=== PATIENT | female | born 1980 | race Caucasian/White ===

== ENCOUNTER 2017-08-07 13:26 | Emergency (ER) | payer MEDICARE, OTHER ==
[~2017-08-07] VITALS: Ht 175.3 cm; Wt 81.6 kg
--- OUTSIDE RECORDS SUMMARY | 2017-08-07 13:35 | XMS REPORT ---
Demographics Address [birth year][address] [address] Preferred Language Unknown Marital Status Unknown Yazidism Affiliation Unknown Race Unknown Ethnic Group Unknown Author Author EVA Byers Organization [facility] Address [address] [place] [address] Care Team Providers Care Senior Technical Editor Name Role Phone EVA Byers Unavailable PROBLEMS Type Condition ICD9-CM Code HAX45-FS Code Onset Dates Condition Status SNOMED Code Problem Acute cystitis with hematuria N30.01 Active 32362165 Problem Injury of right hip region S79.911A Active [id number] Problem Allergic reaction, initial encounter T78.40XA Active 267091924 Problem Bronchitis J40 Active 66034096 Problem Essential hypertension I10 Active 27051139 ALLERGIES No Known Allergies SOCIAL HISTORY Never Assessed PLAN OF CARE Activity Details Follow Up prn Reason: VITAL SIGNS Height 69 in 2016-12-23 Weight 155.2 lbs 2016-12-23 Temperature 98.5 degrees Fahrenheit 2016-12-23 Heart Rate 109 bpm 2016-12-23 Respiratory Rate 16 2016-12-23 BMI 22.92 kg/m2 2016-12-23 Blood pressure systolic 150 mmHg 2016-12-23 Blood pressure diastolic 100 mmHg 2016-12-23 MEDICATIONS Medication Instructions Dosage Frequency Start Date End Date Duration Status Tessalon Perles 100 MG Orally Three times a day 1 capsule as needed 8h December, Active Azithromycin 250 MG Orally Once a day 2 tablets on the first day, then 1 tablet daily for 4 days 24h December, December, 5 day(s) Active RESULTS No Results PROCEDURES No Known procedures IMMUNIZATIONS No Known Immunizations MEDICAL (GENERAL) HISTORY Type Description Date Medical History Hypertension Surgical History rotator cuff tear repair Surgical History section Surgical History left knee replacement Hospitalization History Surgery(s)/Childbirth(s) only Hospitalization History Seizure 2016
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
--- OUTSIDE RECORDS SUMMARY | 2017-08-07 13:36 | XMS REPORT | Continuity of Care Document ---
Author Author [facility] Organization [facility] Address [facility] [address] [address] Phone Unavailable Support Name Relationship Address Phone JELENA RIZO MD Caregiver [address] [place] [phone] Unavailable FINESSE BEASLEY Next Of Kin [address] [address] Insurance Providers Payer Name Policy Number Subscriber Name Relationship Self Pay Insurance Nica Beasley 18 Self / Same As Patient Advance Directives Directive Response Recorded Date/Time Do you have an Advanced Directive? No 07/24/05 12:31pm Advance Directives No 10/30/08 3:56pm Living Will No 10/30/08 3:56pm Health Care Proxy No 02/05/15 5:54am Power of Digital Librarian for Health Care No 10/30/08 3:56pm Who is designated as your agent/rep. to act on your behalf? PT 10/15/14 11: 12am Organ, Tissue, or Eye Donor No 10/30/08 3:56pm Do you have a signed organ donor card? No 07/24/05 12:31pm Chief Complaint and Reason for Visit Chief Complaint LACERATION Reason for Visit Laceration Problems Active Problems Medical Problem Onset Date Status Ankle sprain Unknown Acute Ankle sprain Unknown Acute Knee sprain Unknown Acute Knee sprain Unknown Acute Laceration Unknown Acute Shoulder dislocation Unknown Acute Shoulder pain Unknown Acute Medications Current Home Medications Medication Dose Units Route Directions Days/Qty Instructions Start Date [No Current Meds] 05/14/09 Cephalexin Monohydrate 500 Mg 1,000 Mg Oral Twice A Day 5 Days Past Home Medications Medication Directions Ordered Status Tramadol Hcl 50 Mg Tablet, 50 Mg Oral 3-4 Times Daily As Needed 08/31/08 Discontinued Cyclobenzaprine Hcl 10 Mg Tablet, 1 Oral Three Times Daily As Needed Discontinued Tramadol Hcl 50 Mg Tablet, 50 [...] As Needed Pain for Pain 01/10/15 Discontinued Social History Social History Problem Response Recorded Date/Time Smoking Status Current every day smoker 11/24/2014 12:30pm Query Response Start Date Stop Date Smoking Status Current every day smoker Hospital Discharge Instructions No hospital discharge instructions. Plan of Care Discharge Date 02/05/15 6:10am Condition at Discharge Stable Instructions/Education Provided Laceration (ED) Prescriptions See Medication Section Additional Instructions/Education Take Tylenol and/or Ibuprofen, over the counter, as needed for pain. where your splint for comfort. Return to the ER or follow up with your primary care doctor for suture removal in 10 days. Functional Status No functional status results. Allergies, Adverse Reactions, Alerts Allergen Type Severity Reaction Status Last Updated Codeine Allergy Unknown Active 10/15/14 Propoxyphene Allergy Unknown DARVOCET Active 10/15/14 Immunizations Name Given Type Hx Diphtheria, Pertussis, Tetanus Vaccination Up To Date Historical Hx Hepatitis B Vaccination Unknown Historical Hx Influenza Vaccination No Historical Hx Pneumococcal Vaccination No Historical Hx Tetanus, Diphtheria Vaccination Yes Historical Vital Signs Acute Vital Signs Vital Response Date/Time Temperature (Fahrenheit) 98.1 degrees F (97.6 - 99.5) 01/10/2015 10:23pm Temperature Source Temporal Artery 01/10/2015 10:23pm Pulse Rate (adult) 81 bpm (60 - 90) 01/10/2015 10:50pm Respiratory Rate 18 bpm (12 - 24) 01/10/2015 10:23pm Blood Pressure 132/84 mm Hg 01/10/2015 10:50pm O2 Sat by Pulse Oximetry 97 % (90 - 100) 01/10/2015 10:23pm Oxygen Delivery Method 01/10/2015 10:23pm Pain Intensity 7 01/10/2015 10:50pm Pain Location Body Site Modifier 01/10/2015 10:50pm Pain Description 01/10/2015 10:50pm Pain Duration 31-60 Minutes 01/09/2015 12:15am Results No known relevant diagnostic tests, laboratory data and/or discharge summary. Procedures Procedure Status Date Provider(s) X-ray of right ankle, three or more views Active 11/24/14 JELENA ANDERSEN MD X-ray of left knee, four or more views Active 11/24/14 JELENA ANDERSEN MD X-ray of left shoulder, two or more views Active 01/08/15 ETHEL PEÑA D.O. Hand Rt.4 Views(3OR More) Completed 02/05/15 JELENA RIZO MD Encounters Encounter Location Arrival/Admit Date Discharge/Depart Date Attending Provider Departed Emergency Room [place] 02/05/15 5:00am 02/05/15 6:10am JELENA RIZO MD Departed Emergency Room [place] 01/10/15 10:05pm 01/10/15 10:50pm NOA MILLS MD Departed Emergency Room [place] 01/08/15 11:43pm 01/09/15 12:15am ETHEL PEÑA D.O. Departed Emergency Room [place] 11/24/14 10:42am 11/24/14 12:28pm JELENA ANDERSEN MD Recent Diagnosis
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
--- OUTSIDE RECORDS SUMMARY | 2017-08-07 13:37 | XMS REPORT ---
Author Author SAI GOLD Organization [employer] Address Unknown Phone Unavailable Care Team Providers Care Drier Helper Name Role Phone SAI GOLD CP Unavailable Allergies No Known Allergies Problems Problem Type Condition ICD-9 Code Onset Dates Condition Status Assessment Dental examination V72.2 Active Medications No Known Medications Procedures Procedure Coding System Code Date INTRAORL-PERIAPICAL 1 FILM 26889 CPT-4 D0220 Apr 03, 2015 EXTRAC ERUPTED TOOTH/EXPOSED ROOT CPT-4 D7140 Apr 03, 2015 LTD ORAL EVALUATION - PROBLEM FOCUS CPT-4 D0140 Apr 03, 2015 Results No Known Results Summary Purpose [employer] Submission
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
--- OUTSIDE RECORDS SUMMARY | 2017-08-07 13:37 | XMS REPORT | Continuity of Care Document ---
Author Author [facility] Organization [facility] Address [facility] [address] [place] [address] Phone Unavailable Support Name Relationship Address Phone MATILDA CORBETT DO Caregiver [address] [place] [address] GALE FINESSE Next Of Kin [address] [address] Insurance Providers Payer Name Policy Number Subscriber Name Relationship Self Pay Insurance Nica Beasley 18 Self / Same As Patient Advance Directives Directive Response Recorded Date/Time Do you have an Advanced Directive? No 07/24/05 12:31pm Advance Directives No 10/30/08 3:56pm Living Will No 10/30/08 3:56pm Health Care Proxy No 11/15/15 9:11am Power of Felt Puller for Health Care No 10/30/08 3:56pm Who is designated as your agent/rep. to act on your behalf? PT 10/15/14 11: 12am Organ, Tissue, or Eye Donor No 10/30/08 3:56pm Do you have a signed organ donor card? No 07/24/05 12:31pm Chief Complaint and Reason for Visit Chief Complaint SHOULDER INJURY Reason for Visit Shoulder pain [id number] Problems Active Problems Medical Problem Onset Date Status Ankle sprain Unknown Acute Ankle sprain Unknown Acute Internal derangement of left knee Unknown Acute Knee sprain Unknown Acute Knee sprain Unknown Acute Laceration Unknown Acute Shoulder dislocation Unknown Acute Shoulder pain Unknown Acute Medications Current Home Medications Medication Dose Units Route Directions Days/Qty Instructions Start Date [No Current Meds] 05/14/09 Cephalexin Monohydrate 500 Mg 1,000 Mg Oral Twice A Day 5 Days Tramadol Hcl 50 Mg 50 Mg Oral Every 4-6 Hours 15 05/29/15 Naproxen 500 Mg 500 Mg Oral Twice A Day 30 05/29/15 Meloxicam 7.5 Mg 7.5 Mg Oral Daily 20 09/23/15 Meloxicam 15 Mg 15 Mg Oral Daily as needed for Pain 14 11/15/15 Past Home Medications Medication Directions Ordered Status [...] 11/24/2014 12:30pm Tobacco Use Cigarettes 11/15/2015 9:46am Alcohol Use occasionally 11/15/2015 9:46am Drug Use none 11/15/2015 9:46am Query Response Start Date Stop Date Smoking Status Current every day smoker Hospital Discharge Instructions No hospital discharge instructions. Plan of Care Discharge Date 11/15/15 11:00am Disposition 01 HOME, HALF-WAY,ASSISTED LIVING Condition at Discharge Stable Instructions/Education Provided Shoulder Dislocation (ED) Prescriptions See Medication Section Referrals SEVERO SOTO M.D. - Functional Status Query Response Date Recorded [place] Coma Scale Total 15 November 15, 2015 9:19am Patient Behavior Appropriate November 15, 2015 9:19am Allergies, Adverse Reactions, Alerts Allergen Type Severity Reaction Status Last Updated Codeine Allergy Unknown Active 05/29/15 Propoxyphene Allergy Unknown DARVOCET Active 05/29/15 Immunizations Name Given Type Hx Diphtheria, Pertussis, Tetanus Vaccination Unknown Historical Hx Hepatitis B Vaccination Unknown Historical Hx Influenza Vaccination No Historical Hx Pneumococcal Vaccination No Historical Hx Tetanus, Diphtheria Vaccination No Historical Vital Signs Acute Vital Signs Vital Response Date/Time Temperature (Fahrenheit) 98.0 degrees F (97.6 - 99.5) 11/15/2015 9:19am Temperature Source Temporal Artery 11/15/2015 9:19am Pulse Rate (adult) 78 bpm (60 - 90) 11/15/2015 10:50am Respiratory Rate 18 bpm (12 - 24) 11/15/2015 10:50am Blood Pressure 133/76 mm Hg 11/15/2015 10:50am O2 Sat by Pulse Oximetry 98 % (90 - 100) 11/15/2015 10:50am Oxygen Delivery Method 11/15/2015 10:50am Pain Location Body Site Modifier 11/15/2015 9:30am Pain Description Throbbing 11/15/2015 9:30am Height 5 ft 6 in Weight 163 lb Body Mass Index 26.0 kg/m^2 Results No known relevant diagnostic tests, laboratory data and/or discharge summary. Procedures Procedure Status Date Provider(s) X-ray of left ankle, three or more views Active 09/23/15 EDGARDO QUEZADA DO X-ray of left knee, four or more views Active 09/23/15 EDGARDO QUEZADA DO X-ray of left shoulder, two or more views Completed 11/15/15 MATILDA CORBETT DO X-ray of left shoulder, two or more views Completed 11/15/15 MATILDA CORBETT DO Encounters Encounter Location Arrival/Admit Date Discharge/Depart Date Attending Provider Departed Emergency Room [place] 11/15/15 9:11am 11/15/15 11:00am MATILDA CORBETT DO Departed Emergency Room [place] 09/23/15 1:22pm 09/23/15 4:16pm EDGARDO QUEZADA DO Recent Diagnosis
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
--- OUTSIDE RECORDS SUMMARY | 2017-08-07 13:38 | XMS REPORT | Continuity of Care Document ---
Author Author [facility] Organization [facility] Address [facility] [address] [place] [address] Phone Unavailable Support Name Relationship Address Phone ETHEL PEÑA D.O. Caregiver [address] [place] [address] GALE FINESSE Next Of Kin [address] [place] [id number] Insurance Providers Payer Name Policy Number Subscriber Name Relationship Self Pay Insurance Nica Beasley 18 Self / Same As Patient Advance Directives Directive Response Recorded Date/Time Do you have an Advanced Directive? No 07/24/05 12:31pm Advance Directives No 11/19/16 11:21pm Living Will N N 01/07/17 11:28am Health Care Proxy No 02/16/17 9:20pm Power of Ethologist for Health Care No 11/19/16 11:21pm Organ, Tissue, or Eye Donor No 11/19/16 11:21pm Do you have a signed organ donor card? No 07/24/05 12:31pm Chief Complaint and Reason for Visit Chief Complaint LOW BACK PAIN/INJURY Reason for Visit Alcohol intoxication Coccyx pain Problems Active Problems Medical Problem Onset Date [...] Acute Laceration Unknown Acute Macrocytosis Unknown Acute Neck pain Unknown Acute Neuropathy Unknown Acute Rib fracture Unknown Acute Shoulder dislocation Unknown Acute Shoulder pain Unknown Acute Subdural hematoma Unknown Acute Urinary tract infection Unknown Acute Medications Current Home Medications Medication Dose Units Route Directions Days/Qty Instructions Start Date No Known Medications 01/07/17 Meloxicam 15 Mg 15 Mg Oral Daily 01/08/17 Chlordiazepoxide Hcl 10 Mg 10 Mg Oral Bedtime 01/17/17 Cyclobenzaprine Hcl (Flexeril*) 10 Mg 5 Mg Oral Three Times A Day 01/17/17 Baclofen 10 Mg 10 Mg Oral Three Times A Day 01/17/17 Cephalexin Monohydrate 500 Mg 500 Mg Oral Three Times A Day Past Home Medications Medication Directions Ordered Status [...] 11/19/2016 11:21pm Tobacco Use Cigarettes 11/15/2015 9:46am Sexual History Heterosexual 06/01/2016 9:23am Query Response Start Date Stop Date Smoking Status Current every day smoker Hospital Discharge Instructions No hospital discharge instructions. Plan of Care Discharge Date 02/16/17 9:17pm Condition at Discharge Stable Prescriptions See Medication Section Functional Status Query Response Date Recorded Darshana Coma Scale Total 15 February 16, 2017 9:30pm Patient Behavior Crying February 16, 2017 8:50pm Allergies, Adverse Reactions, Alerts Allergen Type Severity Reaction Status Last Updated Codeine Allergy Unknown Active 01/17/17 Propoxyphene Allergy Unknown DARVOCET Active 01/17/17 Immunizations Name Given Type Hx Diphtheria, Pertussis, Tetanus Vaccination Unknown Historical Hx Hepatitis B Vaccination Unknown Historical Hx Influenza Vaccination No Historical Hx Pneumococcal Vaccination No Historical Hx Tetanus, Diphtheria Vaccination No Historical Hx Tetanus Toxoid Vaccination No Historical Vital Signs Acute Vital Signs Vital Response Date/Time Temperature (Fahrenheit) 98.9 degrees F (97.6 - 99.5) 02/16/2017 8:50pm Temperature Source Temporal Artery 02/16/2017 8:50pm Pulse Rate (adult) 126 bpm (60 - 90) 02/16/2017 9:42pm Respiratory Rate 15 bpm (12 - 24) 02/16/2017 9:42pm Blood Pressure 135/75 mm Hg 02/16/2017 9:42pm O2 Sat by Pulse Oximetry 94 % (90 - 100) 02/16/2017 9:42pm Oxygen Delivery Method 02/16/2017 8:50pm Pain Intensity 0 02/16/2017 9:30pm Pain Location Body Site Modifier Medial 02/16/2017 9:30pm Pain Description 02/16/2017 9:30pm Pain Duration 31-60 Minutes 02/16/2017 9:30pm Height 5 ft 9 in Weight 198 lb Body Mass Index 29.0 kg/m^2 Results Laboratory Results Test Name Result [...] Sodium Level 146 mEq/L H 136-145 11/20/2016 3:11/20/2016 3:56am Potassium Level 3.6 mEq/L 3.5-5.0 11/20/2016 3:11/20/2016 3:56am Chloride Level 107 mEq/L 98-107 11/20/2016 3:11/20/2016 3:56am Carbon Dioxide Level 29.7 mEq/L 21-32 [...] RESULTS CALLED TO ANDREW GARCIA RN AT [facility] 11/20/16 0397 READ BACK PERFORMED Limit of detection: 3 mg/dL Toxic concentration is dependent upon individual usage history. Potentially lethal concentration: > mg=765 mg/dL Tricyclic Antidepressants NEGATIVE 11/19/2016 10:17pm 11/19/2016 10 :28pm Phencyclidine (PCP) Screen NEGATIVE NEGATIVE 11/19/2016 10:17pm 11/19 10:28pm Urine Barbiturates Screen NEGATIVE NEGATIVE 11/19/2016 10:17pm 2016 10:28pm Urine Marijuana (THC) Screen NEGATIVE NEGATIVE 11/19/2016 10:17pm 10:28pm Urine Opiates Screen NEGATIVE NEGATIVE 11/19/2016 [...] 11/19/2016 10:17pm 11/19/2016 10: 28pm Urine Specific [place] <=1.005 L 1.010-1.025 11/19/2016 10:17pm 2016 10:28pm Urine Occult Blood TRACE LYSED H NEGATIVE 11/19/2016 10:17pm 2016 10:28pm URINE CULTURE ORDERED PER MEDICAL STAFF-APPROVED PROTOCOL FOR LAB. Urine pH 7.0 5.0-8.0 11/19/2016 10:17pm 11/19/2016 10:28pm Urine Protein NEGATIVE mg/dL NEGATIVE 11/19/2016 10:17pm 11/19/2016 10: 28pm Urine Urobilinogen 0.2 mg/dL E.U./dL [...] 147.6 mL/min H 11/20/2016 3:19am 11/20 3:56am Pending Laboratory Results Test Name Collection Date/Time Microbiology Results Procedure Source Result Collection Date/Time Result Date/Time Urine Culture Urine,Random ESCHERICHIA COLI 11/19/2016 10:17pm 11/21/2016 7:27am Pending Microbiology Results Procedure Source Collection Date/Time Procedures Procedure Status Date Provider(s) X-ray of left knee, three views Completed 01/08/17 ISAMAR PETTY DO Computed tomography of abdomen and pelvis without contrast Completed ETHEL ALVARENGA DO Encounters Encounter Location Arrival/Admit Date Discharge/Depart Date Attending Provider Departed Emergency Room [place] 02/16/17 8:51pm 02/16/17 9:17pm ETHEL PEÑA D.O. Departed Emergency Room [place] 02/14/17 11:03pm 02/14/17 11:12pm RAQUEL ARIAS MD Departed Emergency Room [place] 02/11/17 4:15pm 02/11/17 4:35pm DIGNA GROSS MD Departed Emergency Room [place] 02/01/17 11:52am 02/01/17 2:55pm ETHEL ALVARENGA DO Departed Emergency Room [place] 01/17/17 12:18am 01/17/17 1:10am RAQUEL ARIAS MD Departed Emergency Room [place] 01/08/17 12:08pm 01/08/17 12:51pm ISAMAR PETTY DO Discharged Inpatient (obs) [place] 11/19/16 11:10pm 11/20/16 9:50am NATALIA VELAZQUEZ MD Recent Diagnosis
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
--- OUTSIDE RECORDS SUMMARY | 2017-08-07 13:40 | XMS REPORT | Continuity of Care Document ---
Author Author [facility] Organization [facility] Address [facility] [address] [place] [address] Phone Unavailable Support Name Relationship Address Phone ETHEL ALVARENGA DO Caregiver [address] [place] [address] GALE FINESSE Next Of Kin [address] [place] [address] Insurance Providers Payer Name Policy Number Subscriber Name Relationship Self Pay Insurance Nica Beasley 18 Self / Same As Patient Advance Directives Directive Response Recorded Date/Time Do you have an Advanced Directive? No 07/24/05 12:31pm Advance Directives No 11/19/16 11:21pm Living Will N N 01/07/17 11:28am Health Care Proxy No 02/01/17 11:55am Power of Director Of Conservation for Health Care No 11/19/16 11:21pm Organ, Tissue, or Eye Donor No 11/19/16 11:21pm Do you have a signed organ donor card? No 07/24/05 12:31pm Chief Complaint and Reason for Visit Chief Complaint TINGLING IN EXTREMETIES Reason for Visit Urinary tract infection Alcohol abuse Neuropathy [id number] Macrocytosis Problems Active Problems Medical Problem Onset Date [...] Use Cigarettes 11/15/2015 9:46am Alcohol Use alcoholic 02/01/2017 12:50pm Drug Use marijuana 02/01/2017 12:50pm Sexual History Heterosexual 06/01/2016 9:23am Query Response Start Date Stop Date Smoking Status Current every day smoker Hospital Discharge Instructions No hospital discharge instructions. 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) Peripheral Neuropathy (ED) Urinary Tract Infection in (ED) Prescriptions See Medication Section Functional Status Query Response Date Recorded [place] Coma Scale Total 15 February 01, 2017 11:52am Patient Behavior Anxious Cooperative Suspicious February 01, 2017 11:52am Allergies, Adverse Reactions, Alerts Allergen Type Severity [...] Vital Signs Vital Response Date/Time Temperature (Fahrenheit) 98 degrees F (97.6 - 99.5) 02/01/2017 2:55pm Temperature Source Temporal Artery 02/01/2017 2:55pm Pulse Rate (adult) 82 bpm (60 - 90) 02/01/2017 2:55pm Respiratory Rate 22 bpm (12 - 24) 02/01/2017 11:52am Blood Pressure 127/78 mm Hg 02/01/2017 2:55pm O2 Sat by Pulse Oximetry 96 % (90 - 100) 02/01/2017 2:55pm Oxygen Delivery Method 02/01/2017 2:55pm Pain Intensity 10 01/17/2017 7:30am Pain Location Body Site Modifier 01/17/2017 7:30am Pain Description 01/17/2017 7:30am Pain Duration CHRONIC 01/17/2017 7:30am Height 5 ft 9 in Weight 165 lb Body Mass Index 24.0 kg/m^2 Results Laboratory Results Test Name Result [...] Urea Nitrogen 5 mg/dL L 7-18 11/20/2016 3:11/20/2016 3:56am Creatinine 0.5 mg/dL L 0.55-1.02 11/20/2016 3:11/20/2016 3:56am Sodium Level 146 mEq/L H 136-145 [...] TO ANDREW GARCIA RN AT [facility] 11/20/16 1865 READ BACK PERFORMED Limit of detection: 3 mg/dL Toxic concentration is dependent upon individual usage history. Potentially lethal concentration: > zz=319 mg/dL Tricyclic Antidepressants NEGATIVE 11/19/2016 10:17pm 11/19/2016 [...] 11/19/2016 10:17pm 11/19/2016 10: 28pm Urine Specific [place] <=1.005 L 1.010-1.025 11/19/2016 10:17pm 2016 10:28pm [...] Discharge/Depart Date Attending Provider Departed Emergency Room [place] 02/01/17 11:52am 02/01/17 2:55pm ETHEL ALVARENGA DO Departed Emergency Room [place] 01/17/17 12:18am 01/17/17 1:10am RAQUEL ARIAS MD Departed Emergency Room [place] 01/08/17 12:08pm 01/08/17 12:51pm ISAMAR PETTY DO Discharged Inpatient (obs) [place] 11/19/16 11:10pm 11/20/16 9:50am NATALIA VELAZQUEZ MD Recent Diagnosis
--- OUTSIDE RECORDS SUMMARY | 2017-08-07 13:40 | XMS REPORT | Continuity of Care Document ---
Author Author [facility] Organization [facility] Address [facility] [address] [place] [address] Phone Unavailable Support Name Relationship Address Phone ETHEL ALVARENGA DO Caregiver [address] [place] [address] [phone] RAQUEL ARIAS MD Caregiver [address] [place] [address] Unavailable FINESSE BEASLEY Next Of Kin [address] [address] Insurance Providers Payer Name Policy Number Subscriber Name Relationship Self Pay Insurance Nica Beasley 18 Self / Same As Patient Advance Directives Directive Response Recorded Date/Time Do you have an Advanced Directive? No 07/24/05 12:31pm Advance Directives No 10/30/08 3:56pm Living Will No 10/30/08 3:56pm Health Care Proxy No 09/05/16 6:21pm Power of [employer] Truck Driver for Health Care No 10/30/08 3:56pm Organ, Tissue, or Eye Donor No 10/30/08 3:56pm Do you have a signed organ donor card? No 07/24/05 12:31pm Chief Complaint and Reason for Visit Chief Complaint MULTIPLE COMPLAINTS Reason for Visit Headache [id number] Problems Active Problems Medical Problem Onset Date [...] Use Cigarettes 11/15/2015 9:46am Alcohol Use alcoholic 09/05/2016 7:33pm Drug Use none 09/05/2016 7:33pm Sexual History Heterosexual 06/01/2016 9:23am Query Response Start Date Stop Date Smoking Status Current every day smoker Hospital Discharge Instructions No hospital discharge instructions. Plan of Care Discharge Date 09/05/16 8:34pm Condition at Discharge Against Medical Advice Prescriptions See Medication Section Functional Status Query Response Date Recorded [place] Coma Scale Total 15 September 05, 2016 6:35pm Patient Behavior Cooperative Appropriate September 05, 2016 6:35pm Allergies, Adverse Reactions, Alerts Allergen Type Severity [...] Vital Signs Vital Response Date/Time Temperature (Fahrenheit) 97.9 degrees F (97.6 - 99.5) 09/05/2016 6:35pm Temperature Source Temporal Artery 09/05/2016 6:35pm Pulse Rate (adult) 110 bpm (60 - 90) 09/05/2016 7:30pm Respiratory Rate 18 bpm (12 - 24) 09/05/2016 7:30pm Blood Pressure 138/88 mm Hg 09/05/2016 7:30pm O2 Sat by Pulse Oximetry 98 % (90 - 100) 09/05/2016 7:30pm Oxygen Delivery Method 09/05/2016 7:30pm Pain Location Body Site Modifier Lateral 08/20/2016 2:45am Pain Description Cramping 08/20/2016 2:45am Height 5 ft 9 in Weight 176 lb Body Mass Index 26.0 kg/m^2 Results [...] individual usage history. Potentially lethal concentration: > sh=613 mg/dL Urine Color YELLOW YELLOW 06/27/2016 2:50am 06/28/2016 2:54am Urine Appearance CLOUDY H CLEAR 06/27/2016 2:50am 06/28/2016 2:54am Urine Glucose (UA) NEGATIVE mg/dL NEGATIVE 06/27/2016 2:50am 2015 2:54am Urine Bilirubin NEGATIVE NEGATIVE 06/27/2016 2:50am 06/28/2016 2: 54am Urine Ketones NEGATIVE mg/dL NEGATIVE 06/27/2016 2:50am 06/28/2016 2: 54am Urine Specific [place] 1.015 1.010-1.025 06/27/2016 2:50am 2015 2:54am Urine [...] tomography of head without contrast Active 08/26/16 ISAMAR PETTY DO X-ray of chest, PA and lateral views Active 08/26/16 ISAMAR PETTY DO X-ray of right knee, three views Active 08/26/16 ISAMAR PETTY DO X-ray of chest, PA and lateral views Completed 09/05/16 ETHEL ALVARENGA DO Computed tomography of head without contrast Completed 09/05/16 RAQUEL ARIAS MD Encounters Encounter Location Arrival/Admit Date Discharge/Depart Date Attending Provider Departed Emergency Room [place] 09/05/16 6:21pm 09/05/16 8:34pm RAQUEL ARIAS MD Departed Emergency Room [place] 08/30/16 11:36pm 08/31/16 12:00am ETHEL PEÑA D.O. Departed Emergency Room [place] 08/26/16 12:57pm 08/26/16 2:50pm ISAMAR PETTY DO Departed Emergency Room [place] 08/19/16 8:44pm 08/20/16 2:55am JEANETTE ADAMS MD Departed Emergency Room [place] 08/16/16 11:11pm 08/17/16 12:43am RAQUEL ARIAS MD Departed Emergency Room [place] 07/03/16 9:10pm 07/03/16 10:15pm ETHEL PEÑA D.O. Departed Emergency Room [place] 06/27/16 8:57pm 06/28/16 11:40am KIA HOOPER M.D. Recent Diagnosis
--- OUTSIDE RECORDS SUMMARY | 2017-08-07 13:40 | XMS REPORT | Continuity of Care Document ---
Author Author [facility] Organization [facility] Address [facility] [address] [address] Phone Unavailable Support Name Relationship Address Phone RAQUEL ARIAS MD Caregiver [address] [place] [address] Unavailable FINESSE BEASLEY Next Of Kin [address] [id number] Insurance Providers Payer Name Policy Number Subscriber Name Relationship Self Pay Insurance Nica Beasley 18 Self / Same As Patient Advance Directives Directive Response Recorded Date/Time Do you have an Advanced Directive? No 07/24/05 12:31pm Advance Directives No 11/19/16 11:21pm Living Will N N 01/07/17 11:28am Health Care Proxy No 01/17/17 12:20am Power of Multisensor Intelligence Officer for Health Care No 11/19/16 11:21pm Organ, Tissue, or Eye Donor No 11/19/16 11:21pm Do you have a signed organ donor card? No 07/24/05 12:31pm Chief Complaint and Reason for Visit Chief Complaint LEG PAIN Reason for Visit [id number] Abdominal pain Problems Active Problems Medical Problem Onset [...] Tobacco Use Cigarettes 11/15/2015 9:46am Alcohol Use heavy 01/17/2017 1:11am Sexual History Heterosexual 06/01/2016 9:23am Query Response Start Date Stop Date Smoking Status Current every day smoker Hospital Discharge Instructions No hospital discharge instructions. Plan of Care Discharge Date 01/17/17 1:10am Condition at Discharge Stable Prescriptions See Medication Section Functional Status Query Response Date Recorded [place] Coma Scale Total 15 January 17, 2017 12:20am Patient Behavior Cooperative January 17, 2017 12:20am Allergies, Adverse Reactions, Alerts Allergen Type Severity [...] Vital Signs Vital Response Date/Time Temperature (Fahrenheit) 98.4 degrees F (97.6 - 99.5) 01/17/2017 12:20am Temperature Source Temporal Artery 01/17/2017 12:20am Pulse Rate (adult) 119 bpm (60 - 90) 01/17/2017 12:20am Respiratory Rate 20 bpm (12 - 24) 01/17/2017 12:20am Blood Pressure 117/91 mm Hg 01/17/2017 12:20am O2 Sat by Pulse Oximetry 97 % (90 - 100) 01/17/2017 12:20am Oxygen Delivery Method 01/17/2017 12:20am Pain Intensity 10 11/20/2016 5:51am Pain Location Body Site Modifier Right 01/17/2017 1:10am Pain Description 01/17/2017 1:10am Pain Duration SEVERAL DAYS 11/19/2016 11:21pm Height 5 ft 9 in Weight 160 [...] 3:56am Chloride Level 107 mEq/L 98-107 11/20/2016 3:19am 11/20/2016 3:56am Carbon Dioxide Level 29.7 mEq/L 21-32 11/20/2016 3:1911/20/2016 3: 56am Calcium Level 7.6 mg/dL L 8.8-10.5 11/20/2016 3:1911/20/2016 3:56am Magnesium Level 1.7 mg/dL L 1.8-2.4 11/20/2016 3:11/20/2016 3:56am Total Protein 6.6 gm/dL 6.4-8.2 11/20/2016 3:1911/20/2016 3:56am Albumin 2.8 gm/dL L 3.4-5.0 11/20/2016 3:1911/20/2016 3:56am Total Bilirubin 0.24 mg/dL 0.00-1.00 11/20/2016 3:11/20/2016 3: 56am Aspartate Amino Transf (AST/SGOT) 103 U/L H 15-37 11/20/2016 3:19 3:56am Alanine Aminotransferase (ALT/SGPT) 38 U/L 12-78 11/20/2016 3: 3:56am Total Alkaline Phosphatase 110 U/L 46-116 11/20/2016 3:11/20/2016 3:56am Ethyl Alcohol Level 415.0 mg/dL *H <3.0 11/20/2016 3:11/20/2016 3: 56am PANIC VALUE - RESULTS CALLED TO ANDREW GARCIA RN AT [facility] 11/20/16 0355 READ BACK PERFORMED Limit of detection: 3 mg/dL Toxic concentration is dependent upon individual usage history. Potentially lethal concentration: > ia=465 mg/dL Tricyclic Antidepressants NEGATIVE 11/19/2016 10:17pm 11/19/2016 10 :28pm Phencyclidine (PCP) Screen NEGATIVE NEGATIVE 11/19/2016 10:1711/19 10:28pm Urine Barbiturates Screen NEGATIVE NEGATIVE 11/19/2016 10:172016 10:28pm Urine Marijuana (THC) Screen NEGATIVE NEGATIVE 11/19/2016 10:17pm 10:28pm Urine Opiates Screen NEGATIVE NEGATIVE 11/19/2016 10:17pm 11/19/2016 10:28pm Urine Cocaine Level NEGATIVE NEGATIVE 11/19/2016 10:1711/19/2016 10:28pm Urine Amphetamines Screen NEGATIVE NEGATIVE 11/19/2016 10:172016 10:28pm Urine Methamphetamines Screen NEGATIVE NEGATIVE 11/19/2016 10:17 10:28pm Urine Benzodiazepines Screen NEGATIVE NEGATIVE 11/19/2016 10:17pm 10:28pm Urine Color YELLOW YELLOW 11/19/2016 10:17pm 11/19/2016 10:28pm Urine Appearance CLEAR CLEAR 11/19/2016 10:17pm 11/19/2016 10:28pm Urine Glucose (UA) NEGATIVE mg/dL NEGATIVE 11/19/2016 10:17pm 2016 10:28pm Urine Bilirubin NEGATIVE NEGATIVE 11/19/2016 10:11/19/2016 10: 28pm Urine Ketones NEGATIVE mg/dL NEGATIVE 11/19/2016 10:17pm 11/19/2016 10: 28pm Urine Specific [place] <=1.005 L 1.010-1.025 11/19/2016 10:172016 10:28pm Urine Occult Blood TRACE LYSED H NEGATIVE 11/19/2016 10:172016 10:28pm URINE CULTURE ORDERED PER MEDICAL STAFF-APPROVED PROTOCOL FOR LAB. Urine pH 7.0 5.0-8.0 11/19/2016 10:1711/19/2016 10:28pm Urine Protein NEGATIVE mg/dL NEGATIVE 11/19/2016 10:1711/19/2016 10: 28pm Urine Urobilinogen 0.2 mg/dL E.U./dL 0.2-1.0 11/19/2016 10:172016 10:28pm Urine Nitrate NEGATIVE NEGATIVE 11/19/2016 10:11/19/2016 10: 28pm Urine Leukocyte Esterase NEGATIVE NEGATIVE 11/19/2016 10:172016 10:28pm Urine RBC 0-1 /hpf 0 11/19/2016 [...] Discharge/Depart Date Attending Provider Departed Emergency Room [place] 01/17/17 12:18am 01/17/17 1:10am RAQUEL ARIAS MD Departed Emergency Room [place] 01/08/17 12:08pm 01/08/17 12:51pm ISAMAR PETTY DO Discharged Inpatient (obs) [place] 11/19/16 11:10pm 11/20/16 9:50am NATALIA VELAZQUEZ MD Recent Diagnosis
--- OUTSIDE RECORDS SUMMARY | 2017-08-07 13:41 | XMS REPORT | Continuity of Care Document ---
Author Author [facility] Organization [facility] Address [facility] [address] [place] [address] Phone Unavailable Support Name Relationship Address Phone RAQUEL ARIAS MD Caregiver [address] [place] [address] Unavailable FINESSE BEASLEY Next Of Kin [phone] [phone] Insurance Providers Payer Name Policy Number Subscriber Name Relationship Self Pay Insurance Nica Beasley 18 Self / Same As Patient Advance Directives Directive Response Recorded Date/Time Do you have an Advanced Directive? No 07/24/05 12:31pm Advance Directives No 11/19/16 11:21pm Living Will N N 01/07/17 11:28am Health Care Proxy No 02/14/17 11:04pm Power of Sledger for Health Care No 11/19/16 11:21pm Organ, Tissue, or Eye Donor No 11/19/16 11:21pm Do you have a signed organ donor card? No 07/24/05 12:31pm Chief Complaint and Reason for Visit Chief Complaint LOW BACK PAIN/INJURY Reason for Visit Coccyx pain Problems Active Problems Medical Problem [...] Use Cigarettes 11/15/2015 9:46am Alcohol Use heavy 02/14/2017 11:13pm Drug Use other 02/14/2017 11:13pm Sexual History Heterosexual 06/01/2016 9:23am Query Response Start Date Stop Date Smoking Status Current every day smoker Hospital Discharge Instructions No hospital discharge instructions. Plan of Care Discharge Date 02/14/17 11:12pm Condition at Discharge Stable Prescriptions See Medication Section Functional Status Query Response Date Recorded [place] Coma Scale Total 15 February 14, 2017 11:44pm Patient Behavior Restless Anxious February 14, 2017 11:02pm Allergies, Adverse Reactions, Alerts Allergen Type Severity [...] (Fahrenheit) 97.9 degrees F (97.6 - 99.5) 02/14/2017 11:02pm Temperature Source Temporal Artery 02/14/2017 11:02pm Pulse Rate (adult) 108 bpm (60 - 90) 02/14/2017 11:44pm Respiratory Rate 16 bpm (12 - 24) 02/14/2017 11:44pm Blood Pressure 118/85 mm Hg 02/14/2017 11:02pm O2 Sat by Pulse Oximetry 94 % (90 - 100) 02/14/2017 11:02pm Oxygen Delivery Method 02/14/2017 11:02pm Pain Intensity 0 02/14/2017 11:44pm Pain Location Body Site Modifier 02/14/2017 11:44pm Pain Description 02/14/2017 11:44pm Pain Duration X'S TWO DAYS 02/14/2017 11:44pm Height 5 ft 9 in Weight 160 [...] TO ANDREW GARCIA RN AT [facility] 11/20/16 2929 READ BACK PERFORMED Limit of detection: 3 mg/dL Toxic concentration is dependent upon individual usage history. Potentially lethal concentration: > ct=820 mg/dL Tricyclic Antidepressants NEGATIVE 11/19/2016 10:17pm 11/19/2016 [...] 11/19/2016 10:17pm 11/19/2016 10: 28pm Urine Specific [place] <=1.005 L 1.010-1.025 11/19/2016 10:17pm 2016 10:28pm [...] Discharge/Depart Date Attending Provider Departed Emergency Room [place] 02/14/17 11:03pm 02/14/17 11:12pm RAQUEL ARIAS MD Departed Emergency Room [place] 02/11/17 4:15pm 02/11/17 4:35pm DIGNA GROSS MD Departed Emergency Room [place] 02/01/17 11:52am 02/01/17 2:55pm ETHEL ALVARENGA DO Departed Emergency Room [place] 01/17/17 12:18am 01/17/17 1:10am RAQUEL ARIAS MD Departed Emergency Room [place] 01/08/17 12:08pm 01/08/17 12:51pm ISAMAR PETTY DO Discharged Inpatient (obs) [place] 11/19/16 11:10pm 11/20/16 9:50am NATALIA VELAZQUEZ MD Recent Diagnosis
--- OUTSIDE RECORDS SUMMARY | 2017-08-07 13:41 | XMS REPORT | Continuity of Care Document ---
Author Author [facility] Organization [facility] Address [facility] [address] [place] [address] Phone Unavailable Support Name Relationship Address Phone ETHEL PEÑA D.O. Caregiver [address] [place] [address] FINESSE BEASLEY Next Of Kin [address] [place] [address] Insurance Providers Payer Name Policy Number Subscriber Name Relationship Self Pay Insurance Nica Beasley 18 Self / Same As Patient Advance Directives Directive Response Recorded Date/Time Do you have an Advanced Directive? No 07/24/05 12:31pm Advance Directives No 10/30/08 3:56pm Living Will No 10/30/08 3:56pm Health Care Proxy No 08/30/16 11:35pm Power of Plant Culture Manager for Health Care No 10/30/08 3:56pm Organ, Tissue, or Eye Donor No 10/30/08 3:56pm Do you have a signed organ donor card? No 07/24/05 12:31pm Problems Active Problems Medical Problem Onset Date [...] discharge instructions. Plan of Care Discharge Date 08/31/16 12:00am Disposition 07 AMA, LWOT, LWBS Prescriptions See Medication Section Functional Status Query Response Date Recorded [place] Coma Scale Total 15 August 30, 2016 11:35pm Patient Behavior Restless Belligerent August 30, 2016 11:34pm Allergies, Adverse Reactions, Alerts Allergen Type Severity [...] (Fahrenheit) 98.4 degrees F (97.6 - 99.5) 08/30/2016 11:35pm Temperature Source Temporal Artery 08/30/2016 11:35pm Pulse Rate (adult) 125 bpm (60 - 90) 08/30/2016 11:35pm Respiratory Rate 24 bpm (12 - 24) 08/30/2016 11:35pm Blood Pressure 150/99 mm Hg 08/30/2016 11:35pm O2 Sat by Pulse Oximetry 99 % (90 - 100) 08/30/2016 11:35pm Oxygen Delivery Method 08/30/2016 11:35pm Pain Location Body Site Modifier Lateral 08/20/2016 [...] individual usage history. Potentially lethal concentration: > cr=401 mg/dL Urine Color YELLOW YELLOW 06/27/2016 2:50am 06/28/2016 2:54am Urine Appearance CLOUDY H CLEAR 06/27/2016 2:50am 06/28/2016 2:54am Urine Glucose (UA) NEGATIVE mg/dL NEGATIVE 06/27/2016 2:50am 2015 2:54am Urine Bilirubin NEGATIVE NEGATIVE 06/27/2016 2:50am 06/28/2016 2: 54am Urine Ketones NEGATIVE mg/dL NEGATIVE 06/27/2016 2:50am 06/28/2016 2: 54am Urine Specific [place] 1.015 1.010-1.025 06/27/2016 2:50am 2015 2:54am Urine [...] DO X-ray of right knee, two views Active 08/26/16 ISAMAR PETTY DO Encounters Encounter Location Arrival/Admit Date Discharge/Depart Date Attending Provider Registered Emergency Room [place] 08/30/16 11:36pm ETHEL PEÑA D.O. Departed Emergency Room [place] 08/26/16 12:57pm 08/26/16 2:50pm ISAMAR PETTY DO Departed Emergency Room [place] 08/19/16 8:44pm 08/20/16 2:55am JEANETTE ADAMS MD Departed Emergency Room [place] 08/16/16 11:11pm 08/17/16 12:43am RAQUEL ARIAS MD Departed Emergency Room [place] 07/03/16 9:10pm 07/03/16 10:15pm ETHEL PEÑA D.O. Departed Emergency Room [place] 06/27/16 8:57pm 06/28/16 11:40am KIA HOOPER M.D.
--- OUTSIDE RECORDS SUMMARY | 2017-08-07 13:41 | XMS REPORT | Continuity of Care Document ---
Author Author [facility] Organization [facility] Address [facility] [address] [place] [address] Phone Unavailable Support Name Relationship Address Phone ETHEL PEÑA D.O. Caregiver [address] [place] [address] FINESSE BEASLEY Next Of Kin [address] [place] [address] Insurance Providers Payer Name Policy Number Subscriber Name Relationship Self Pay Insurance Nica Beasley 18 Self / Same As Patient Advance Directives Directive Response Recorded Date/Time Do you have an Advanced Directive? No 07/24/05 12:31pm Advance Directives No 10/30/08 3:56pm Living Will No 10/30/08 3:56pm Health Care Proxy No 07/03/16 9:17pm Power of Visual Designer for Health Care No 10/30/08 3:56pm Organ, Tissue, or Eye Donor No 10/30/08 3:56pm Do you have a signed organ donor card? No 07/24/05 12:31pm Chief Complaint and Reason for Visit Chief Complaint ALCOHOL INTOXICATION Reason for Visit Alcohol intoxication Alcohol abuse Problems Active Problems Medical Problem Onset Date Status Abdominal pain Unknown Acute Alcohol abuse Unknown Acute Alcohol intoxication Unknown Acute Ankle sprain Unknown Acute Ankle sprain Unknown Acute ETOH abuse Unknown Acute Fall Unknown Acute Internal derangement of left knee [...] Mg 40 Mg Oral Daily 14 06/01/16 Past Home Medications Medication Directions Ordered Status [...] Use Cigarettes 11/15/2015 9:46am Alcohol Use alcoholic 07/03/2016 10:08pm Sexual History Heterosexual 06/01/2016 9:23am Employment Unemployeed 07/03/2016 10:08pm Query Response Start Date Stop Date Smoking Status Current every day smoker Hospital Discharge Instructions No hospital discharge instructions. Plan of Care Discharge Date 07/03/16 10:15pm Condition at Discharge Serious Instructions/Education Provided Alcohol Intoxication (ED) Prescriptions See Medication Section Functional Status Query Response Date Recorded Darshana Coma Scale Total 15 July 03, 2016 9:42pm Patient Behavior Aggressive Restless Uncooperative July 03, 2016 9:15pm Allergies, Adverse Reactions, Alerts Allergen Type Severity Reaction Status Last Updated Codeine Allergy Unknown Active 06/27/16 Propoxyphene Allergy Unknown DARVOCET Active 06/27/16 Immunizations Name Given Type Hx Diphtheria, Pertussis, Tetanus Vaccination Unknown Historical Hx Hepatitis B Vaccination Unknown Historical Hx Influenza Vaccination N DOES NOT TAKE Historical Hx Pneumococcal Vaccination No Historical Hx Tetanus, Diphtheria Vaccination No Historical Vital Signs Acute Vital Signs Vital Response Date/Time Temperature (Fahrenheit) 98.8 degrees F (97.6 - 99.5) 07/03/2016 9:15pm Temperature Source Temporal Artery 07/03/2016 9:15pm Pulse Rate (adult) 116 bpm (60 - 90) 07/03/2016 9:42pm Respiratory Rate 20 bpm (12 - 24) 07/03/2016 9:42pm Blood Pressure 134/72 mm Hg 07/03/2016 9:15pm O2 Sat by Pulse Oximetry 97 % (90 - 100) 07/03/2016 9:15pm Oxygen Delivery Method 07/03/2016 9:15pm Pain Description 06/01/2016 11:25am Height 5 ft 9 in Weight 198 [...] Hemoglobin Concent 35.1 g/dL 30.0-37.0 06/01/2016 9: [facility] 06/01/2016 9:48am Red Cell Distribution Width 13.9 % 11.5-14.5 06/01/2016 9:34a 2015 9:48am Platelet Count 214 K/uL 130-400 06/01/2016 9:34a 06/01/2016 9:48am Mean Platelet Volume 8.1 fL 7.4-10.4 06/01/2016 9:34a 06/01/2016 9: 48am Neutrophils (%) (Auto) 72.3 % 42.2-75.2 06/01/2016 9:[facility] 06/01/2016 9: 48am Lymphocytes (%) (Auto) 18.7 % L 20.5-51.1 06/01/2016 9:[facility] 06/01/2016 9 :48am Monocytes (%) (Auto) 7.3 % 1.7-9.3 06/01/2016 9:34a 06/01/2016 9:48am Eosinophils (%) (Auto) 1.0 % 0-3 06/01/2016 9:[facility] 06/01/2016 9:48am Basophils (%) (Auto) 0.6 % [...] 10:03am Total Bilirubin 0.27 mg/dL 0.00-1.00 06/01/2016 9:34a 06/01/2016 10: 03am Aspartate Amino Transf (AST/SGOT) 74 U/L H 15-37 06/01/2016 9:34am 06/01 10:03am Alanine Aminotransferase (ALT/SGPT) 67 U/L 12-78 06/01/2016 9:34a 04/2016 10:03am Total Alkaline Phosphatase 75 U/L 46-116 06/01/2016 9:34a 06/01/2016 10:03am Lipase 293 U/L H 65-230 06/01/2016 9:34am 06/01/2016 10:03am Ethyl Alcohol Level 116.0 mg/dL <3.0 06/01/2016 9:34am 06/01/2016 10: 03am Limit of detection: 3 mg/dL Toxic concentration is dependent upon individual usage history. Potentially lethal concentration: > iw=644 mg/dL Tricyclic Antidepressants NEGATIVE 06/01/2016 10:05am 06/01/2016 [...] 06/01/2016 10:05am 06/01/2016 10: 10am Urine Specific [place] 1.010 1.010-1.025 06/01/2016 10:05am 2015 10:10am Urine [...] 10: 11am Urine Amphetamines Screen Negative ng/mL Qcfaxa=9915 06/01/2016 10:05am 06/05/2016 2:24pm Amphetamine test includes Amphetamine and Methamphetamine. Urine Barbiturates Screen Negative ng/mL Ssffbk=146 06/01/2016 10:05am 06/05/2016 2:24pm Urine Benzodiazepines Screen Negative ng/mL Warsaz=496 06/01/2016 10: 05am 06/05/2016 2:24pm Urine Cannabinoids Screen Positive H Cutoff=50 06/01/2016 10:05am 2:37pm Carboxy THC GC/MS Conf 60 ng/mL Cutoff=10 01 Urine Cocaine Screen Negative ng/mL Bubhsu=855 06/01/2016 10:05am 06/05 2:24pm Urine Opiates Screen Negative ng/mL Bvpkhd=266 06/01/2016 10:05am 06/05 2:24pm Opiate test includes Codeine and Morphine only. Urine Phencyclidine Screen Negative ng/mL Cutoff=25 06/01/2016 10:05am 06/05/2016 2:25pm Performed at: - [facility] [id number] Business Unit Controller: Charles Sultana MD, Phone: [phone] Glomerular Filtration Rate Calc 100.6 mL/min 06/01/2016 9:34am 2015 10:03am Pending Laboratory Results Test Name Collection Date/Time Pending Microbiology Results Procedure Source Collection Date/Time Procedures Procedure Status Date Provider(s) Computed tomography of abdomen and pelvis without contrast Active 06/01/16 MARLENE PRADO MD Complete ultrasound of pelvis Active 06/01/16 MARLENE PRADO MD Encounters Encounter Location Arrival/Admit Date Discharge/Depart Date Attending Provider Departed Emergency Room [place] 07/03/16 9:10pm 07/03/16 10:15pm ETHEL PEÑA D.O. Departed Emergency Room [place] 06/27/16 8:57pm 06/28/16 11:40am KIA HOOPER M.D. Departed Emergency Room [place] 06/01/16 9:12am 06/01/16 3:20pm MARLENE PRADO MD Recent Diagnosis
--- OUTSIDE RECORDS SUMMARY | 2017-08-07 13:42 | XMS REPORT | Continuity of Care Document ---
Author Author [facility] Organization [facility] Address [facility] [address] [place] [address] Phone Unavailable Support Name Relationship Address Phone ETHEL PEÑA D.O. Caregiver [address] [place], [place] [id number] GALE FINESSE Next Of Kin [address] [place] [address] Insurance Providers Payer Name Policy Number Subscriber Name Relationship Self Pay Insurance Nica Beasley 18 Self / Same As Patient Advance Directives Directive Response Recorded Date/Time Do you have an Advanced Directive? No 07/24/05 12:31pm Advance Directives No 10/30/08 3:56pm Living Will No 10/30/08 3:56pm Health Care Proxy No 05/29/15 10:16am Power of Painter Barrel for Health Care No 10/30/08 3:56pm Who is designated as your agent/rep. to act on your behalf? PT 10/15/14 11: 12am Organ, Tissue, or Eye Donor No 10/30/08 3:56pm Do you have a signed organ donor card? No 07/24/05 12:31pm Chief Complaint and Reason for Visit Chief Complaint KNEE PAIN Reason for Visit [id number] Problems Active Problems Medical Problem Onset Date [...] Mg Oral Twice A Day 30 05/29/15 Past Home Medications Medication Directions Ordered Status [...] Pain 03/15/10 Discontinued Diclofenac Sodium 50 Mg Tablet.dr 50 Mg Oral Three Times A Day [...] discharge instructions. Plan of Care Discharge Date 05/29/15 12:06pm Condition at Discharge Stable Instructions/Education Provided Meniscus Tear (GEN) Prescriptions See Medication Section Referrals SEVERO CRUZ M.D. - Additional Instructions/Education Leave the splint in place until you see Dr. Cruz on the , at 9:20 AM. You are scheduled for your MRI Thursday at 10 AM. He will remain off work until you see Dr. Cruz Functional Status Query Response Date Recorded Patient Behavior Appropriate May 29, 2015 10:22am Allergies, Adverse Reactions, Alerts Allergen Type Severity [...] (Fahrenheit) 98.9 degrees F (97.6 - 99.5) 05/29/2015 11:50am Temperature Source Temporal Artery 05/29/2015 11:50am Pulse Rate (adult) 90 bpm (60 - 90) 05/29/2015 11:50am Respiratory Rate 20 bpm (12 - 24) 05/29/2015 11:50am Blood Pressure 132/88 mm Hg 05/29/2015 11:50am O2 Sat by Pulse Oximetry 98 % (90 - 100) 05/29/2015 11:50am Oxygen Delivery Method 05/29/2015 11:50am Pain Intensity 10 05/29/2015 10:22am Pain Location Body Site Modifier 05/29/2015 12:06pm Pain Description 05/29/2015 12:06pm Height 5 ft 9 in Weight 176 lb Body Mass Index 26.0 kg/m^2 Results No known relevant diagnostic tests, laboratory data and/or discharge summary. Procedures Procedure Status Date Provider(s) X-ray of left knee, four or more views Completed 05/29/15 ETHEL PEÑA D.O. Encounters Encounter Location Arrival/Admit Date Discharge/Depart Date Attending Provider Departed Emergency Room [place] 05/29/15 10:15am 05/29/15 12:06pm ETHEL PEÑA D.O. Recent Diagnosis
--- OUTSIDE RECORDS SUMMARY | 2017-08-07 13:42 | XMS REPORT | Continuity of Care Document ---
Author Author [facility] Organization [facility] Address [facility] [address] [place] [address] Phone Unavailable Support Name Relationship Address Phone NOA GRAHAM MD Caregiver [address] [place] [address] GALE FINESSE Next Of Kin [address] [place] [address] Insurance Providers Guarantor Nica Beasley Address [address] [place] [address] Email NO Payer Self Pay Insurance Subscriber's Name Nica Beasley Relationship 18 Self / Same As Patient Advance Directives Directive Response Recorded Date/Time Do you have an Advanced Directive? No 07/24/05 12:31pm Advance Directives No 03/30/17 8:09pm Living Will No 05/23/17 9:37pm Health Care Proxy No 08/04/17 11:27am Power of Shirring Machine Operator Automatic for Health Care No 03/30/17 8:09pm Organ, Tissue, or Eye Donor No 03/30/17 8:09pm Do you have a signed organ donor card? No 07/24/05 12:31pm Chief Complaint and Reason for Visit Chief Complaint EYE TRAUMA Reason for Visit [id number] Problems Medical Problem Onset Date Status Abdominal [...] Acromioclavicular joint separation, type 3 Unknown Acute Closed head injury Unknown Acute Facial contusion Unknown Acute Facial contusion Unknown Acute Fracture of inferior orbital wall Unknown Acute Inferior rectus muscle entrapment Unknown Acute Orbital floor (blow-out), closed fracture Unknown Acute Ribs, multiple fractures Unknown Acute Subconjunctival hemorrhage of left eye Unknown Acute Medications Current Home Medications Medication Dose Units Route Directions Days Qty Instructions Start Date Cephalexin Monohydrate (Keflex 500 Mg Cap*) 500 Mg Capsule 500 Mg ORAL Four Times Daily 40 Cap 08/04/17 Cephalexin Monohydrate (Keflex 500 Mg Cap*) 500 Mg Capsule 500 Mg ORAL Four Times Daily 40 Cap 08/04/17 Hydrocodone/Acetaminophen ([place] 7.5-325 Tablet) 1 Each Tablet 1 Tab ORAL Every 6 Hours 20 Drcm Unit 08/04/17 Ondansetron (Zofran Odt) 4 Mg Tab.rapdis 1 Tab ORAL Every 6 To 8 Hours As Needed 30 Drcm Unit 08/04/17 Past Home Medications Medication Directions Ordered Status Acetaminophen/Hydrocodone Bitart ([place] 5-325 Tab*) 1 Tab Tablet, 1 Each Oral Every 6 Hrs As Needed For Pain 05/24/17 Discontinued Acetaminophen/Hydrocodone Bitart ([place] 5-325 Tab*) 1 Tab Tablet, 1 Each Oral Every 6 Hrs As Needed For Pain 08/17/16 Discontinued Acetaminophen/Hydrocodone Bitart (Lortab 5/500 Tab*) 1 Tab Tablet, 1 Tab Oral Every 6 Hrs As Needed For Pain 10/14/09 Discontinued Acetaminophen/Hydrocodone Bitart ([place] 5-325 Tab*) 1 Tab Tablet, 1 Each Oral Every 4-6 Hrs As Needed Pain 10/15/14 Discontinued Acetaminophen/Hydrocodone Bitart ([place] 7.5-325 Tab*) 1 Tab Tablet, 1 Each Oral Every 6 Hrs As Needed For Pain as needed for Pain Or Temperature Discontinued Acetaminophen/Hydrocodone Bitart ([place] 7.5-325 Tab*) 1 Tab Tablet, 1 Each [...] Oral Three Times A Day 02/17/11 Discontinued Folic Acid/Vitamin B Comp W-C 1 Ea Tab, 1 Ea Oral Daily 04/04/17 Discontinued Ibuprofen , Oral As Needed Discontinued Indomethacin (Indomethacin*) 25 Mg Capsule, 25 Mg Oral Three Times A Day as needed for Pain 08/02/17 Discontinued Lorazepam (Ativan 0.5 Mg Tab*) 0.5 [...] (Percocet 5-325 Mg Tablet*) 1 Tab Tablet, 1-2 Ea Oral Every 6 Hours As Needed 08/02/17 Discontinued Oxycodone Hcl/Acetaminophen* (Percocet 5-325 Mg Tablet*) [...] 4-6 Hrs As Needed Pain 03/15/10 Discontinued Thiamine Hcl 100 Mg Tab, 100 Mg Oral Daily 04/04/17 Discontinued Tramadol Hcl (Ultram 50 Mg Tab*) 50 Mg Tablet, 50 Mg Oral Every 4-6 Hours Discontinued Tramadol Hcl (Ultram 50 Mg Tab*) [...] information available. Plan of Care Discharge Date 08/04/17 3:24pm Condition at Discharge Stable Instructions/Education Provided Facial Fracture (ED) Prescriptions See Medication Section Referrals Dr Karen Macario Address: Dr [facility] [employer] office number: [phone] Address: [address] please call today for an appointment on . Note: Dr Karen [facility] [employer] office number: [phone] Address: [facility] [address] please call today for an appointment on . Additional Instructions/Education do not blow your nose this could cause air to collect in the orbit and cause significant pain. Please use Afrin for congestion in the nose. Take your Keflex antibiotics as prescribed. use an ice pack to decrease swelling. use natural tears (saline) twice daily. follow up with Dr Karen Macario on . please call today for your appointment time. Dr [facility] [employer] office number: [phone] Address: [facility] [address] please call today for an appointment on . Functional Status Query Response Date Recorded Darshana Coma Scale Total 15 August 04, 2017 11:21am Patient Behavior Cooperative August 04, 2017 11:21am Allergies, Adverse Reactions, Alerts Allergen Type Severity Reaction Status Last Updated Codeine Allergy Unknown Active 08/03/17 Propoxyphene Allergy Unknown DARVOCET Active 08/03/17 Aspirin Allergy Unknown Active 08/04/17 Immunizations Immunization Event Date Type Not Given Reason Dose Number Lot Number Distribution Operations Manager VIS Given DTP 08/17/16 Administered 1 [id number] Query Response on File Recorded Date/Time Hx Diphtheria, Pertussis, Tetanus Vaccination Up To Date 08/04/17 11:21am Hx Hepatitis B Vaccination Unknown 05/14/09 11:20am Hx Influenza Vaccination No 08/04/17 11:21am Hx Pneumococcal Vaccination No 08/04/17 11:21am Hx Tetanus, Diphtheria Vaccination No 02/01/17 11:52am Hx Tetanus Toxoid Vaccination No 02/01/17 11:52am Vital Signs Acute Vital Signs Vital Response Date/Time Temperature (Fahrenheit) 98.0 degrees F (97.6 - 99.5) 08/04/2017 3:19pm Temperature Source Temporal Artery 08/04/2017 3:19pm Pulse Rate (adult) 100 bpm (60 - 90) 08/04/2017 3:19pm Respiratory Rate 19 bpm (12 - 24) 08/04/2017 3:19pm Blood Pressure 123/86 mm Hg 08/04/2017 3:19pm O2 Sat by Pulse Oximetry 100 % (90 - 100) 08/04/2017 3:19pm Oxygen Delivery Method Room Air 08/04/2017 3:19pm Pain Intensity 6 08/03/2017 6:51am Pain Location Body Site Modifier Left Right 08/03/2017 6:51am Pain Description Throbbing Aching 08/03/2017 6:51am Pain Duration 31-60 Minutes 08/03/2017 6:51am Height 5 ft 9 in 08/04/2017 11:21am Weight 160.94 lb 08/04/2017 11:21am Body Mass Index 23.0 kg/m^2 08/04/2017 11:21am Results Laboratory Results Test Name Result Units Flags Reference Collection Date/Time Result Date/ Time Comments Urine Mucus FEW H NEGATIVE 08/02/2017 10:15am 08/02/2017 10:28am Urine Amorphous Sediment 1+ H NEGATIVE 08/02/2017 10:15am 08/02/2017 10:28am White Blood Count 4.8 K/uL 4.8-10.8 08/04/2017 11:40am 08/04/2017 12: 05pm Red Blood Count 3.67 M/uL L 4.20-5.40 08/04/2017 11:40am 08/04/2017 12: 05pm Hemoglobin 10.6 gm/dL L 12.0-16.0 08/04/2017 11:40am 08/04/2017 12:05pm Hematocrit 33.4 % L 37.0-47.0 08/04/2017 11:40am 08/04/2017 12:05pm Mean Corpuscular Volume 90.9 fL 81.0-99.0 08/04/2017 11:40am 2016 12:05pm Mean Corpuscular Hemoglobin 28.8 pg 27.0-31.0 08/04/2017 11:40am 2016 12:05pm Mean Corpuscular Hemoglobin Concent 31.8 g/dL 30.0-37.0 08/04/2017 11: 40am 08/04/2017 12:05pm Red Cell Distribution Width 17.7 % H 11.5-14.5 08/04/2017 11:40am 2016 12:05pm Platelet Count 267 K/uL 130-400 08/04/2017 11:40am 08/04/2017 12:05pm Mean Platelet Volume 7.2 fL L 7.4-10.4 08/04/2017 11:40am 08/04/2017 12: 05pm Neutrophils (%) (Auto) 56.4 % 42.2-75.2 08/04/2017 11:40am 08/04/2017 12:05pm Lymphocytes (%) (Auto) 35.6 % 20.5-51.1 08/04/2017 11:40am 08/04/2017 12:05pm Monocytes (%) (Auto) 4.3 % 1.7-9.3 08/04/2017 11:40am 08/04/2017 12: 05pm Eosinophils (%) (Auto) 3.3 % H 0-3 08/04/2017 11:40am 08/04/2017 12: 05pm Basophils (%) (Auto) 0.4 % 0.0-1.0 08/04/2017 11:40am 08/04/2017 12: 05pm Neutrophils # (Auto) 2.7 K/uL 2.0-6.9 08/04/2017 11:40am 08/04/2017 12: 05pm Lymphocytes # (Auto) 1.7 K/uL 1.2-3.4 08/04/2017 11:40am 08/04/2017 12: 05pm Monocytes # (Auto) 0.2 K/uL 0.1-0.6 08/04/2017 11:40am 08/04/2017 12: 05pm Eosinophils # (Auto) 0.2 K/uL 0.0-0.7 08/04/2017 11:40am 08/04/2017 12: 05pm Basophils # (Auto) 0.0 K/uL 0.0-0.2 08/04/2017 11:40am 08/04/2017 12: 05pm Prothrombin Time 9.3 SECONDS 9.10-11.20 08/04/2017 11:40am 08/04/2017 12:31pm Prothromb Time International Ratio 0.90 0.9-1.1 08/04/2017 11:40am 12:31pm PLEASE NOTE REFERENCE RANGE Random Glucose 108 mg/dL 70-110 08/04/2017 11:40am 08/04/2017 12:47pm Blood Urea Nitrogen 10 mg/dL 7-18 08/04/2017 11:40am 08/04/2017 12: 47pm Creatinine 0.6 mg/dL 0.55-1.02 08/04/2017 11:40am 08/04/2017 12:47pm Sodium Level 142 mEq/L 136-145 08/04/2017 11:40am 08/04/2017 12:47pm Potassium Level 3.7 mEq/L 3.5-5.0 08/04/2017 11:40am 08/04/2017 12: 47pm Chloride Level 106 mEq/L 98-107 08/04/2017 11:40am 08/04/2017 12:47pm Carbon Dioxide Level 24.1 mEq/L 21-32 08/04/2017 11:40am 08/04/2017 12: 47pm Calcium Level 8.1 mg/dL L 8.8-10.5 08/04/2017 11:40am 08/04/2017 12: 47pm Total Protein 7.3 gm/dL 6.4-8.2 08/04/2017 11:40am 08/04/2017 12:47pm Albumin 3.4 gm/dL 3.4-5.0 08/04/2017 11:40am 08/04/2017 12:47pm Total Bilirubin 0.14 mg/dL 0.00-1.00 08/04/2017 11:40am 08/04/2017 12: 47pm Aspartate Amino Transf (AST/SGOT) 37 U/L 15-37 08/04/2017 11:40am 08/04 12:47pm Alanine Aminotransferase (ALT/SGPT) 21 U/L 12-78 08/04/2017 11:40am 07/2017 12:47pm Total Alkaline Phosphatase 98 U/L 46-116 08/04/2017 11:40am 08/04/2017 12:47pm Ethyl Alcohol Level 345.0 mg/dL *H <3.0 08/04/2017 11:40am 08/04/2017 12: 47pm PANIC VALUE - RESULTS CALLED TO DAYANA OLSEN RN. SUPRIYA RICK 08/04/17 1246 READ BACK PERFORMED Limit of detection: 3 mg/dL Toxic concentration is dependent upon individual usage history. Potentially lethal concentration: > sg=820 mg/dL Tricyclic Antidepressants NEGATIVE 08/04/2017 12:38pm 08/04/2017 12 :59pm Phencyclidine (PCP) Screen NEGATIVE NEGATIVE 08/04/2017 12:38pm 08/04 12:59pm Urine Barbiturates Screen NEGATIVE NEGATIVE 08/04/2017 12:38pm 2016 12:59pm Urine Marijuana (THC) Screen POSITIVE A NEGATIVE 08/04/2017 12:38pm 12:59pm THC detected at or above the cut off of 50 ng/mL (all positive result sent out for comfirmation) Urine Opiates Screen POSITIVE A NEGATIVE 08/04/2017 12:38pm 2016 12:59pm OPI detected at or above the cut off of 300 ng/mL (all positive result sent out for comfirmation) Urine Cocaine Level NEGATIVE NEGATIVE 08/04/2017 12:38pm 08/04/2017 12:59pm Urine Amphetamines Screen NEGATIVE NEGATIVE 08/04/2017 12:38pm 2016 12:59pm Urine Methamphetamines Screen NEGATIVE NEGATIVE 08/04/2017 12:38pm 12:59pm Urine Benzodiazepines Screen NEGATIVE NEGATIVE 08/04/2017 12:38pm 07/2017 12:59pm Urine MDMA Screen (Ecstasy) NEGATIVE NEGATIVE 08/04/2017 12:38pm 07/2017 12:59pm Urine Oxycodone Screen POSITIVE A NEGATIVE 08/04/2017 12:38pm 2016 12:59pm OXY detected at or above the cut off of 300 ng/mL (all positive result sent out for comfirmation) Urine Methadone Screen NEGATIVE NEGATIVE 08/04/2017 12:38pm 2016 12:59pm Urine Color YELLOW YELLOW 08/04/2017 12:38pm 08/04/2017 12:57pm Urine Appearance CLEAR CLEAR 08/04/2017 12:38pm 08/04/2017 12:57pm Urine Glucose (UA) NEGATIVE mg/dL NEGATIVE 08/04/2017 12:38pm 2016 12:57pm Urine Bilirubin NEGATIVE NEGATIVE 08/04/2017 12:38pm 08/04/2017 12: 57pm Urine Ketones NEGATIVE mg/dL NEGATIVE 08/04/2017 12:38pm 08/04/2017 12: 57pm Urine Specific [place] <=1.005 L 1.010-1.025 08/04/2017 12:38pm 2016 12:57pm Urine Occult Blood NEGATIVE NEGATIVE 08/04/2017 12:38pm 08/04/2017 12 :57pm Urine pH 6.0 5.0-8.0 08/04/2017 12:38pm 08/04/2017 12:57pm Urine Protein NEGATIVE mg/dL NEGATIVE 08/04/2017 12:38pm 08/04/2017 12: 57pm Urine Urobilinogen 0.2 mg/dL E.U./dL 0.2-1.0 08/04/2017 12:38pm 2016 12:57pm Urine Nitrate POSITIVE H NEGATIVE 08/04/2017 12:38pm 08/04/2017 12: 57pm Urine Leukocyte Esterase NEGATIVE NEGATIVE 08/04/2017 12:38pm 2016 12:57pm Urine RBC NEGATIVE /hpf 0 08/04/2017 12:38pm 08/04/2017 1:08pm Urine WBC 5-9 /hpf H 0-4 08/04/2017 12:38pm 08/04/2017 1:08pm Urine Squamous Epithelial Cells 2-3 /hpf 0-1 08/04/2017 12:38pm 2016 1:08pm Urine Bacteria 4+ H NEGATIVE 08/04/2017 12:38pm 08/04/2017 1:08pm Urine HCG, Qualitative NEGATIVE NEG 08/04/2017 12:38pm 08/04/2017 12: 57pm Glomerular Filtration Rate Calc 112.5 mL/min 08/04/2017 11:40am 08/04 12:47pm Microbiology Results Procedure Source Organism/Result Collection Date/Time Result Date/Time Result Status Urine Culture Urine,Clean Catch ESCHERICHIA COLI 08/02/2017 10:15am 2016 11:15am Final Procedures Procedure Status Date Provider(s) Computed [...] without contrast Completed 08/02/17 LESLIE LIU MD Computed tomography of cervical spine without contrast Completed 08/04/17 NOA GRAHAM MD Computed tomography of head without contrast Completed 08/04/17 NOA GRAHAM MD Computed tomography angiography of neck vessels without then with intravenous contrast Completed 08/04/17 NOA GRAHAM MD Encounters Encounter Location Arrival/Admit Date Discharge/Depart Date Attending Provider Departed Emergency Room [place] 08/04/17 11:25am 08/04/17 3:24pm NOA GRAHAM MD Departed Emergency Room [place] 08/02/17 9:06pm 08/02/17 11:45pm LESLIE LIU MD Departed Emergency Room [place] 08/02/17 9:36am 08/02/17 11:36am ETHEL PEÑA D.O. Departed Emergency Room [place] 06/16/17 1:12am 06/16/17 2:00am ETHEL PEÑA D.O. Departed Emergency Room [place] 05/23/17 9:36pm 05/24/17 12:35am EDDIE MORRISON MD Recent Diagnosis
--- OUTSIDE RECORDS SUMMARY | 2017-08-07 13:42 | XMS REPORT | Continuity of Care Document ---
Author Author [facility] Organization [facility] Address [facility] [address] [place] [address] Phone Unavailable Support Name Relationship Address Phone JONO GOLDMAN MD Caregiver [address] [place] [address] Unavailable GALE FINESSE Next Of Kin [address] [place] [address] [id number] Insurance Providers Payer Name Policy Number Subscriber Name Relationship Self Pay Insurance Nica Beasley 18 Self / Same As Patient Advance Directives Directive Response Recorded Date/Time Do you have an Advanced Directive? No 07/24/05 12:31pm Advance Directives No 10/30/08 3:56pm Living Will No 10/30/08 3:56pm Power of Willow Analyst for Health Care No 10/30/08 3:56pm Who is designated as your agent/rep. to act on your behalf? PT 10/15/14 11: 12am Organ, Tissue, or Eye Donor No 10/30/08 3:56pm Do you have a signed organ donor card? No 07/24/05 12:31pm Chief Complaint and Reason for Visit Chief Complaint MULTIPLE TRAUMA/FALL Reason for Visit Fall Problems Active Problems Medical Problem Onset Date Status Ankle sprain Unknown Acute Ankle sprain Unknown Acute Fall Unknown Acute Internal derangement [...] 7.5 Mg 7.5 Mg Oral Daily 20 01/31/16 Meloxicam 15 Mg 15 Mg Oral Daily as needed for Pain 14 11/15/15 Meloxicam 15 Mg 15 Mg Oral Daily 14 03/23/16 Past Home Medications Medication Directions Ordered Status [...] 11/24/2014 12:30pm Tobacco Use Cigarettes 11/15/2015 9:46am Query Response Start Date Stop Date Smoking Status Current every day smoker Hospital Discharge Instructions No hospital discharge instructions. Plan of Care Discharge Date 03/23/16 2:28am Condition at Discharge Stable Instructions/Education Provided Ankle Sprain (ED) Shoulder Sprain (ED) Knee Pain (ED) Forms Provided WORK RELEASE Prescriptions See Medication Section Additional Instructions/Education No weight bearing to the left leg until followed up by primary care or orthopedic surgery. return for any new or concerning symptoms. Functional Status Query Response Date Recorded [place] Coma Scale Total 15 March 23, 2016 12:43am Patient Behavior Restless Anxious Crying March 23, 2016 12:43am Allergies, Adverse Reactions, Alerts Allergen Type Severity [...] Vital Signs Vital Response Date/Time Temperature (Fahrenheit) 98.2 degrees F (97.6 - 99.5) 03/23/2016 2:15am Temperature Source Temporal Artery 03/23/2016 2:15am Pulse Rate (adult) 99 bpm (60 - 90) 03/23/2016 2:15am Respiratory Rate 18 bpm (12 - 24) 03/23/2016 2:15am Blood Pressure 150/92 mm Hg 03/23/2016 2:15am O2 Sat by Pulse Oximetry 98 % (90 - 100) 03/23/2016 2:15am Oxygen Delivery Method 03/23/2016 2:15am Height 5 ft 9 in Weight 154 lb Body Mass Index 22.0 kg/m^2 Results No known relevant diagnostic tests, laboratory data and/or discharge summary. Procedures Procedure Status Date Provider(s) X-ray of left shoulder, two or more views Completed 03/23/16 JONO GOLDMAN MD X-ray of left knee, three views Completed 03/23/16 JONO GOLDMAN MD X-ray of left ankle, three or more views Completed 03/23/16 JONO GOLDMAN MD Foot Lt.4 Views(3OR More) Completed 03/23/16 JONO GOLDMAN MD Encounters Encounter Location Arrival/Admit Date Discharge/Depart Date Attending Provider Departed Emergency Room [place] 03/23/16 12:44am 03/23/16 2:28am JONO GOLDMAN MD Recent Diagnosis
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
--- OUTSIDE RECORDS SUMMARY | 2017-08-07 13:44 | XMS REPORT | Continuity of Care Document ---
Author Author [facility] Organization [facility] Address [facility] [address] [place] [address] Phone Unavailable Support Name Relationship Address Phone EDGARDO QUEZADA DO Caregiver [address] [place] [address] Unavailable GALE FINESSE Next Of Kin [address] [id number] Insurance Providers Payer Name Policy Number Subscriber Name Relationship Self Pay Insurance Nica Beasley 18 Self / Same As Patient Advance Directives Directive Response Recorded Date/Time Do you have an Advanced Directive? No 07/24/05 12:31pm Advance Directives No 10/30/08 3:56pm Living Will No 10/30/08 3:56pm Health Care Proxy No 09/23/15 1:21pm Power of Right Of Way Supervisor for Health Care No 10/30/08 3:56pm Who is designated as your agent/rep. to act on your behalf? PT 10/15/14 11: 12am Organ, Tissue, or Eye Donor No 10/30/08 3:56pm Do you have a signed organ donor card? No 07/24/05 12:31pm Chief Complaint and Reason for Visit Chief Complaint KNEE PAIN Reason for Visit Knee sprain Ankle sprain Problems Active Problems Medical Problem Onset Date [...] 7.5 Mg 7.5 Mg Oral Daily 20 16 Past Home Medications Medication Directions Ordered Status [...] Status Current every day smoker 11/24/2014 12:30pm Drug Use none 09/23/2015 4:00pm Query Response Start Date Stop Date Smoking Status Current every day smoker Hospital Discharge Instructions No hospital discharge instructions. Plan of Care Discharge Date 09/23/15 4:16pm Condition at Discharge Stable Instructions/Education Provided Ankle Sprain (ED) Knee Sprain (ED) Forms Provided WORK RELEASE Prescriptions See Medication Section Referrals SEVERO SOTO M.D. - 1 Week Additional Instructions/Education You may apply ice to the affected area for 20 minutes at a time for the next 2 days. If you're still having pain he may then apply heat for 20 minutes at a time to the affected areas. He needs to establish with a primary care physician. He may call the orthopedist office listed below and arrange outpatient followup. Functional Status Query Response Date Recorded [place] Coma Scale Total 15 September 23, 2015 2:07pm Patient Behavior Appropriate September 23, 2015 2:07pm Allergies, Adverse Reactions, Alerts Allergen Type Severity [...] (Fahrenheit) 98.8 degrees F (97.6 - 99.5) 09/23/2015 2:07pm Temperature Source Temporal Artery 09/23/2015 2:07pm Pulse Rate (adult) 94 bpm (60 - 90) 09/23/2015 2:07pm Respiratory Rate 16 bpm (12 - 24) 09/23/2015 2:07pm Blood Pressure 133/78 mm Hg 09/23/2015 2:07pm O2 Sat by Pulse Oximetry 98 % (90 - 100) 09/23/2015 2:07pm Oxygen Delivery Method 09/23/2015 2:07pm Pain Location Body Site Modifier 09/23/2015 2:49pm Height 5 ft 9 in Weight 178 lb Body Mass Index 26.0 kg/m^2 Results No known relevant diagnostic tests, laboratory data and/or discharge summary. Procedures Procedure Status Date Provider(s) X-ray of left ankle, three or more views Completed 09/23/15 EDGARDO QUEZADA DO X-ray of left knee, four or more views Completed 09/23/15 EDGARDO QUEZADA DO Encounters Encounter Location Arrival/Admit Date Discharge/Depart Date Attending Provider Departed Emergency Room [place] 09/23/15 1:22pm 09/23/15 4:16pm EDGARDO QUEZADA DO Recent Diagnosis
--- OUTSIDE RECORDS SUMMARY | 2017-08-07 13:44 | XMS REPORT | Continuity of Care Document ---
Author Author [facility] Organization [facility] Address [facility] [address] [place] [address] Phone Unavailable Support Name Relationship Address Phone ISAMAR PETTY DO Caregiver [address] [place] [phone] Unavailable GALEFINESSE Next Of Kin [address] [place] [phone] Insurance Providers Payer Name Policy Number Subscriber Name Relationship Self Pay Insurance Nica Beasley 18 Self / Same As Patient Advance Directives Directive Response Recorded Date/Time Do you have an Advanced Directive? No 07/24/05 12:31pm Advance Directives No 10/30/08 3:56pm Living Will No 10/30/08 3:56pm Health Care Proxy No 09/12/16 1:41pm Power of Threshing Machine Operator for Health Care No 10/30/08 3:56pm Organ, Tissue, or Eye Donor No 10/30/08 3:56pm Do you have a signed organ donor card? No 07/24/05 12:31pm Chief Complaint and Reason for Visit Chief Complaint MULTIPLE COMPLAINTS Reason for Visit Alcohol abuse [id number] Hypomagnesemia Problems Active Problems Medical Problem Onset Date [...] Use Cigarettes 11/15/2015 9:46am Alcohol Use heavy 09/12/2016 2:11pm Sexual History Heterosexual 06/01/2016 9:23am Query Response Start Date Stop Date Smoking Status Current every day smoker Hospital Discharge Instructions No hospital discharge instructions. Plan of Care Discharge Date 09/12/16 6:10pm Disposition 02 XFER SHT-TRM (ACUTE) HOSP Condition at Discharge Serious Prescriptions See Medication Section Functional Status Query Response Date Recorded Patient Behavior Anxious Fearful September 12, 2016 1:50pm Allergies, Adverse Reactions, Alerts Allergen Type Severity [...] (Fahrenheit) 97.5 degrees F (97.6 - 99.5) 09/12/2016 1:50pm Temperature Source Temporal Artery 09/12/2016 1:50pm Pulse Rate (adult) 116 bpm (60 - 90) 09/12/2016 5:57pm Respiratory Rate 14 bpm (12 - 24) 09/12/2016 4:50pm Blood Pressure 121/82 mm Hg 09/12/2016 5:57pm O2 Sat by Pulse Oximetry 96 % (90 - 100) 09/12/2016 5:57pm Oxygen Delivery Method 09/12/2016 5:57pm Pain Location Body Site Modifier Lateral 08/20/2016 2:45am Pain Description Cramping 08/20/2016 2:45am Height 5 ft 9 in Weight 160 [...] individual usage history. Potentially lethal concentration: > hy=127 mg/dL Urine Color YELLOW YELLOW 06/27/2016 2:50am 06/28/2016 2:54am Urine Appearance CLOUDY H CLEAR 06/27/2016 2:50am 06/28/2016 2:54am Urine Glucose (UA) NEGATIVE mg/dL NEGATIVE 06/27/2016 2:50am 2015 2:54am Urine Bilirubin NEGATIVE NEGATIVE 06/27/2016 2:50am 06/28/2016 2: 54am Urine Ketones NEGATIVE mg/dL NEGATIVE 06/27/2016 2:50am 06/28/2016 2: 54am Urine Specific [place] 1.015 1.010-1.025 06/27/2016 2:50am 2015 2:54am Urine [...] tomography of head without contrast Active 08/26/16 JOVANNY ISAMAR DO X-ray of chest, PA and lateral views Active 08/26/16 JOVANNY,ISAMAR DO X-ray of right knee, three views Active 08/26/16 JOVANNY,ISAMAR DO X-ray of chest, PA and lateral views Active 09/05/16 ETHEL ALVARENGA DO Computed tomography of head without contrast Active 09/05/16 RAQUEL ARIAS MD Computed tomography of head without contrast Active 09/12/16 ISAMAR PETTY DO X-ray of chest, PA and lateral views Active 09/12/16 ISAMAR PETTY DO Encounters Encounter Location Arrival/Admit Date Discharge/Depart Date Attending Provider Departed Emergency Room [place] 09/12/16 1:42pm 09/12/16 6:10pm ISAMAR PETTY DO Departed Emergency Room [place] 09/05/16 6:21pm 09/05/16 8:34pm RAQUEL ARIAS MD Departed Emergency Room [place] 08/30/16 11:36pm 08/31/16 12:00am ETHEL PEÑA D.O. Departed Emergency Room [place] 08/26/16 12:57pm 08/26/16 2:50pm ISAMAR PETTY DO Departed Emergency Room [place] 08/19/16 8:44pm 08/20/16 2:55am JEANETTE ADAMS MD Departed Emergency Room [place] 08/16/16 11:11pm 08/17/16 12:43am RAQUEL ARIAS MD Departed Emergency Room [place] 07/03/16 9:10pm 07/03/16 10:15pm ETHEL PEÑA D.O. Departed Emergency Room [place] 06/27/16 8:57pm 06/28/16 11:40am KIA HOOPER M.D. Recent Diagnosis
--- OUTSIDE RECORDS SUMMARY | 2017-08-07 13:44 | XMS REPORT | Continuity of Care Document ---
Author Author [facility] Organization [facility] Address [facility] [address] [place] [address] Phone Unavailable Support Name Relationship Address Phone KALYANI SALMERON MD Caregiver [address] [place] [address] FINESSE BEASELY Next Of Kin [address] [place] [address] Insurance Providers Payer Name Policy Number Subscriber Name Relationship Self Pay Insurance Nica Beasley 18 Self / Same As Patient Advance Directives Directive Response Recorded Date/Time Do you have an Advanced Directive? No 07/24/05 12:31pm Advance Directives No 11/19/16 11:21pm Living Will N N 01/07/17 11:28am Health Care Proxy No 01/07/17 11:28am Power of Genetics Teacher for Health Care No 11/19/16 11:21pm Organ, [...] Unknown Acute Chronic subdural hematoma Unknown Acute Dental abscess Unknown Acute ETOH [...] Instructions Start Date No Known Medications 01/07/17 Past Home Medications Medication Directions Ordered Status [...] Current every day smoker Hospital Discharge Instructions Current inpatient/outpatient. Discharge instructions are currently unavailable. Plan of Care Prescriptions Functional Status No functional status results. Allergies, Adverse Reactions, Alerts Allergen Type Severity Reaction Status Last Updated Codeine Allergy Unknown Active 01/07/17 Propoxyphene Allergy Unknown DARVOCET Active 01/07/17 Immunizations Name Given Type Hx Diphtheria, Pertussis, Tetanus Vaccination Up To Date Historical Hx Hepatitis B Vaccination Unknown Historical Hx Influenza Vaccination No Historical Hx Pneumococcal Vaccination No Historical Hx Tetanus, Diphtheria Vaccination No Historical Vital Signs Acute Vital Signs Vital Response Date/Time Temperature (Fahrenheit) 97.6 degrees F (97.6 - 99.5) 01/07/2017 11:27am Temperature Source Temporal Artery 01/07/2017 11:27am Pulse Rate (adult) 115 bpm (60 - 90) 01/07/2017 11:27am Respiratory Rate 24 bpm (12 - 24) 01/07/2017 11:27am Blood Pressure 155/103 mm Hg 01/07/2017 11:27am O2 Sat by Pulse Oximetry 95 % (90 - 100) 01/07/2017 11:27am Oxygen Delivery Method 01/07/2017 11:27am Pain Intensity 10 11/20/2016 5:51am Pain Location Body Site Modifier 11/20/2016 8:25am Pain Description Aching 11/20/2016 7:21am Pain Duration SEVERAL DAYS 11/19/2016 11:21pm Results Laboratory Results Test Name Result Units [...] Urea Nitrogen 5 mg/dL L 7-18 11/20/2016 3:1911/20/2016 3:56am Creatinine 0.5 mg/dL L 0.55-1.02 11/20/2016 3:1911/20/2016 3:56am Sodium Level 146 mEq/L H 136-145 11/20/2016 3:1911/20/2016 3:56am Potassium Level 3.6 mEq/L 3.5-5.0 11/20/2016 3:1911/20/2016 3:56am Chloride Level 107 mEq/L 98-107 11/20/2016 3:1911/20/2016 3:56am Carbon Dioxide Level 29.7 mEq/L 21-32 11/20/2016 3:1911/20/2016 3: 56am Calcium Level 7.6 mg/dL L 8.8-10.5 11/20/2016 3:1911/20/2016 3:56am Magnesium Level 1.7 mg/dL L 1.8-2.4 11/20/2016 3:1911/20/2016 3:56am Total Protein 6.6 gm/dL 6.4-8.2 11/20/2016 3:1911/20/2016 3:56am Albumin 2.8 gm/dL L 3.4-5.0 11/20/2016 3:19am 11/20/2016 3:56am Total Bilirubin 0.24 mg/dL 0.00-1.00 11/20/2016 3:19am 11/20/2016 3: 56am Aspartate Amino Transf (AST/SGOT) 103 U/L H 15-37 11/20/2016 3:19am 3:56am Alanine Aminotransferase (ALT/SGPT) 38 U/L 12-78 11/20/2016 3:19am 3:56am Total Alkaline Phosphatase 110 U/L 46-116 11/20/2016 3:19am 11/20/2016 3:56am Ethyl Alcohol Level 415.0 mg/dL *H <3.0 11/20/2016 3:19am 11/20/2016 3: 56am PANIC VALUE - RESULTS CALLED TO ANDREW GARCIA RN AT [facility] 11/20/16 0355 READ BACK PERFORMED Limit of detection: 3 mg/dL Toxic concentration is dependent upon individual usage history. Potentially lethal concentration: > ef=321 mg/dL Tricyclic Antidepressants NEGATIVE 11/19/2016 10:17pm 11/19/2016 10 :28pm Phencyclidine (PCP) Screen NEGATIVE NEGATIVE 11/19/2016 10:pm 11/19 10:28pm Urine Barbiturates Screen NEGATIVE NEGATIVE 11/19/2016 10:17pm 2016 10:28pm Urine Marijuana (THC) Screen NEGATIVE NEGATIVE 11/19/2016 10:17pm 10:28pm Urine Opiates Screen NEGATIVE NEGATIVE 11/19/2016 10:17pm 11/19/2016 10:28pm Urine Cocaine Level NEGATIVE NEGATIVE 11/19/2016 10:17pm 11/19/2016 10:28pm Urine Amphetamines Screen NEGATIVE NEGATIVE 11/19/2016 10:pm 2016 10:28pm Urine Methamphetamines Screen NEGATIVE NEGATIVE 11/19/2016 10:17pm 10:28pm Urine Benzodiazepines Screen NEGATIVE NEGATIVE 11/19/2016 10:17pm 10:28pm Urine Color YELLOW YELLOW 11/19/2016 10:17pm 11/19/2016 10:28pm Urine Appearance CLEAR CLEAR 11/19/2016 10:17pm 11/19/2016 10:28pm Urine Glucose (UA) NEGATIVE mg/dL NEGATIVE 11/19/2016 10:17pm 2016 10:28pm Urine Bilirubin NEGATIVE NEGATIVE 11/19/2016 10:1711/19/2016 10: 28pm Urine Ketones NEGATIVE mg/dL NEGATIVE 11/19/2016 10:17pm 11/19/2016 10: 28pm Urine Specific [place] <=1.005 L 1.010-1.025 11/19/2016 10:17pm 2016 10:28pm Urine Occult Blood TRACE LYSED H NEGATIVE 11/19/2016 10:172016 10:28pm URINE CULTURE ORDERED PER MEDICAL STAFF-APPROVED PROTOCOL FOR LAB. Urine pH 7.0 5.0-8.0 11/19/2016 10:17pm 11/19/2016 10:28pm Urine Protein NEGATIVE mg/dL NEGATIVE 11/19/2016 10:1711/19/2016 10: 28pm Urine Urobilinogen 0.2 mg/dL E.U./dL 0.2-1.0 11/19/2016 10:17pm 2016 10:28pm Urine Nitrate NEGATIVE NEGATIVE 11/19/2016 10:1711/19/2016 10: 28pm Urine Leukocyte Esterase NEGATIVE NEGATIVE 11/19/2016 10:172016 10:28pm Urine RBC 0-1 /hpf 0 11/19/2016 10:17pm 11/19/2016 10:37pm Urine WBC NEGATIVE /hpf 0-4 11/19/2016 10:1711/19/2016 10:37pm Urine Squamous Epithelial Cells 1-5 /hpf 0-1 11/19/2016 10:17pm 2016 10:37pm Urine Bacteria TRACE H NEGATIVE 11/19/2016 10:1711/19/2016 10:37pm Urine HCG, Qualitative NEGATIVE NEG 11/19/2016 10:1711/20/2016 8: 37am Glomerular Filtration Rate Calc 147.6 mL/min H 11/20/2016 3:19am 11/20 3:56am Microbiology Results Procedure Source Result Collection Date/Time Result Date/Time Urine Culture Urine,Random ESCHERICHIA COLI 11/19/2016 10:1711/21/2016 7:27am Procedures No known history of procedures. Encounters Encounter Location Arrival/Admit Date Discharge/Depart Date Attending Provider Departed Emergency Room [place] 01/07/17 11:28am 01/07/17 11:42am KALYANI SALMERON MD Discharged Inpatient (obs) [place] 11/19/16 11:10pm 11/20/16 9:50am NATALIA VELAZQUEZ MD
--- OUTSIDE RECORDS SUMMARY | 2017-08-07 13:44 | XMS REPORT ---
Demographics Address [address] [place] [id number] Preferred Language Unknown Marital Status Unknown Latter Day Affiliation Unknown Race Unknown Ethnic Group Unknown Author Author PAPITO CHAVARRIA Organization [facility] Address [address] [place] [address] Care Team Providers Care Health Spa Manager Name Role Phone PAPITO CHAVARRIA Unavailable PROBLEMS Type Condition ICD9-CM Code HLO11-NB Code Onset Dates Condition Status SNOMED Code Problem Acute cystitis with hematuria N30.01 Active 17748285 Problem Injury of right hip region S79.911A Active 97851767543325003 Problem Allergic reaction, initial encounter T78.40XA Active 613875816 Problem Bronchitis J40 Active 80857658 Problem Essential hypertension I10 Active [id number] ALLERGIES No Known Allergies SOCIAL HISTORY Never Assessed PLAN OF CARE Activity Details Follow Up prn Reason:cough VITAL SIGNS Height 69 in 2016-12-13 Weight 152.7 lbs 2016-12-13 Temperature 98.4 degrees Fahrenheit 2016-12-13 Heart Rate 139 bpm 2016-12-13 Respiratory Rate 18 2016-12-13 Oximetry 98 % 2016-12-13 BMI 22.55 kg/m2 2016-12-13 Blood pressure systolic 148 mmHg 2016-12-13 Blood pressure diastolic 98 mmHg 2016-12-13 MEDICATIONS Medication Instructions Dosage Frequency Start Date End Date Duration Status Tramadol HCl 50 mg Orally every 6 hrs 1 tablet as needed 6h Nov, 05 days Active Dextromethorphan-Guaifenesin 10-100 MG/5ML Orally every 4 hrs 10 ml as needed 4h Nov, Nov, 05 days Active Promethazine-Codeine 6.25-10 MG/5ML Orally every 6 hrs PRN cough 5 ml Active Aleve 220 MG Orally every 12 hrs 1 tablet as needed 12h Active Augmentin 875-125 MG Orally every 12 hrs 1 tablet 12h Active RESULTS No Results PROCEDURES Procedure Date Ordered Result Body Site MEASURE BLOOD OXYGEN LEVEL December 13, 2016 IMMUNIZATIONS No Known Immunizations MEDICAL (GENERAL) HISTORY Type Description Date Medical History Hypertension Surgical History rotator cuff tear repair Surgical History section Surgical History left knee replacement Hospitalization History Surgery(s)/Childbirth(s) only Hospitalization History Seizure 2016
--- OUTSIDE RECORDS SUMMARY | 2017-08-07 13:44 | XMS REPORT | Continuity of Care Document ---
Author Author [facility] Organization [facility] Address [facility] [address] [place] [address] Phone Unavailable Support Name Relationship Address Phone ETHEL PEÑA D.O. Caregiver [address] [place] [address] [place] FINESSE Next Of Kin [address] [id number] Insurance Providers Payer Name Policy Number Subscriber Name Relationship Self Pay Insurance Nica Beasley 18 Self / Same As Patient Advance Directives Directive Response Recorded Date/Time Do you have an Advanced Directive? No 07/24/05 12:31pm Advance Directives No 10/30/08 3:56pm Living Will No 10/30/08 3:56pm Health Care Proxy No 01/08/15 11:41pm Power of Blueprint Duplicator for Health Care No 10/30/08 3:56pm Who is designated as your agent/rep. to act on your behalf? PT 10/15/14 11: 12am Organ, Tissue, or Eye Donor No 10/30/08 3:56pm Do you have a signed organ donor card? No 07/24/05 12:31pm Problems Medical Problems Problem Onset Date Status Knee sprain Unknown Active Ankle sprain Unknown Active Knee sprain Unknown Active Ankle sprain Unknown Active Shoulder dislocation Unknown Active Medications Medication Dose Route Sig Days/Qty Instructions Order Date Discontinued Date Status Tramadol HCl 50 Mg PO 3-4 TIMES DAILY NEEDED 20 Qty 08/31/08 Active Cyclobenzaprine HCl 1 PO THREE TIMES DAILY NEEDED 14 Qty 02/25/09 Active [no current meds] 05/14/09 Active Tramadol HCl 50 Mg PO EVERY 6 HOURS 15 Qty 05/14/09 Active Amoxicillin 500 Mg PO THREE TIMES A DAY 21 Qty 10/14/09 Active Acetaminophen/Hydrocodone Bitart 1 Tab PO EVERY 6 HRS NEEDED FOR PAIN 15 Qty 10/14/09 Active Propoxyphene/Acetaminophen 1 Tab PO EVERY 4-6 HRS NEEDED PAIN 15 Qty 12/10/09 Active Tramadol HCl 50 Mg PO EVERY 6 HOURS 15 Qty 03/03/10 Active Cyclobenzaprine HCl 10 Mg PO THREE TIMES A DAY 15 Qty 03/03/10 Active Propoxyphene/Acetaminophen 1 Tab PO EVERY 4-6 HRS NEEDED PAIN 15 Qty 03/15/10 Active Diclofenac Sodium 50 Mg PO THREE TIMES A DAY 20 Qty 02/17/11 Active Acetaminophen/Hydrocodone Bitart (Lortab 5-325*) 1 Each PO EVERY 4-6 HRS NEEDED PAIN 15 Qty 10/15/14 Active Acetaminophen/Hydrocodone Bitart (Lortab 7.5-325 Tab*) 1 Each PO EVERY 6 HRS NEEDED FOR PAIN PRN PAIN OR TEMPERATURE 20 Qty 11/24/14 Active Social History Social History Problem Response Recorded Date/Time Smoking Status Current every day smoker 11/24/2014 12:30pm Query Response Start Date Stop Date Smoking Status Current every day smoker Hospital Discharge Instructions No hospital discharge instructions. Plan of Care No plan of care. Functional Status Query Response Date Recorded [place] Coma Scale Total January 08, 2015 11:40pm Patient Behavior Anxious Crying January 08, 2015 11:40pm Allergies, Adverse Reactions, Alerts Allergen Type Severity [...] (Fahrenheit) 98.9 degrees F (97.6 - 99.5) Temperature Source Temporal Artery Pulse Rate (adult) 108 bpm (60 - 90) Respiratory Rate 20 bpm (12 - 24) Blood Pressure 147/92 mm Hg O2 Sat by Pulse Oximetry 96 % (90 - 100) Oxygen Delivery Method Pain Intensity 10 Pain Location Body Site Modifier Pain Description Pain Duration 31-60 Minutes Height 5 ft 9 in Weight 235 lb Body Mass Index 34.0 kg/m^2 Results Test Source Date Result Interp. Ref. Range Comments Acetaminophen Level March 03, 2005 5:30am < 1.0 mcg/mL L 10-30 Alanine Aminotransferase (ALT/SGPT) May 14, 2009 11:20am 26 U/L L 30-65 Albumin May 14, 2009 11:20am 3.9 gm/dL N 3.4-5.0 Amylase Level May 14, 2009 11:20am 59 U/L N 25-115 Aspartate Amino Transf (AST/SGOT) May 14, 2009 11:20am 17 U/L N 15 -37 Barbiturates August 02, 2007 1:00pm Negative - Basophils # (Auto) May 14, 2009 11:20am 0.1 K/uL N 0.0-0.2 Basophils (%) (Auto) May 14, 2009 11:20am 1.1 % H 0.0-1.0 Biopsy Helicobacter pylori Screen October 31, 2008 10:00am Negative at 24 hr - Blood Urea Nitrogen May 14, 2009 11:20am 10 mg/dL N 7-18 Calcium Level May 14, 2009 11:20am 9.2 mg/dL N 8.8-10.5 Carbon Dioxide Level May 14, 2009 11:20am 22.8 mEq/L N 21-32 Cervical Mucus Ferning Test July 25, 2007 11:30am Negative - Chloride Level May 14, 2009 11:20am 103 mEq/L N 98-107 Creatinine May 14, 2009 11:20am 0.7 mg/dL N 0.6-1.0 Creatinine Clearance 24 Hour May 05, 2006 7:23pm 168 ML/MIN H 81- 134 Direct Bilirubin March 03, 2005 5:30am 0.29 mg/dL N 0.00-0.30 Eosinophils # (Auto) May 14, 2009 11:20am 0.1 K/uL N 0.0-0.7 Eosinophils (%) (Auto) May 14, 2009 11:20am 1.5 % N 0.0-2.0 Eosinophils (Manual) May 14, 2006 6:40am 1.0 % N 0-3 Ethyl Alcohol Level March 02, 2005 12:15pm 20.5 mg/dL - Fasting Glucose July 05, 2007 12:28pm 79 MG/DL N 70-110 PT ATE 2.5 HRS AGO Glucose 1 Hour July 05, 2007 12:28pm 112 MG/DL L 120-170 PT ATE 2.5 HRS AGO Hematocrit May 14, 2009 11:20am 41.0 % N 37.0-47.0 Hemoglobin May 14, 2009 11:20am 13.9 gm/dL N 12.0-16.0 Hypochromasia August 02, 2007 8:45pm 1+ - Indirect Bilirubin March 03, 2005 5:30am 1.02 mg/dL H 0-0.70 Lipase May 14, 2009 11:20am 193 U/L N 114-286 Lymphocytes # (Auto) May 14, 2009 11:20am 1.9 K/uL N 1.2-3.4 Lymphocytes (%) (Auto) May 14, 2009 11:20am 29.6 % N 20.5-51.1 Lymphocytes (Manual) August 02, 2007 8:45pm 34.0 % N 25-40 Mean Corpuscular Hemoglobin May 14, 2009 11:20am 29.9 pg N 27.0- 31.0 Mean Corpuscular Hemoglobin Concent May 14, 2009 11:20am 33.9 g/dL N 30.0-37.0 Mean Corpuscular Volume May 14, 2009 11:20am 88.2 fL N 81.0-99.0 Mean Platelet Volume May 14, 2009 11:20am 6.2 fL L 7.4-10.4 Monocytes # (Auto) May 14, 2009 11:20am 0.6 K/uL N 0.1-0.6 Monocytes (%) (Auto) May 14, 2009 11:20am 9.4 % H 1.7-9.3 Monocytes (Manual) August 02, 2007 8:45pm 2.0 % L 4-10 Neutrophils August 02, 2007 8:45pm 64.0 % N 50-65 Neutrophils # (Auto) May 14, 2009 11:20am 3.7 K/uL N 2.0-6.9 Neutrophils (%) (Auto) May 14, 2009 11:20am 58.3 % N 42.2-75.2 Platelet Count May 14, 2009 11:20am 248 K/uL N 130-400 Platelet Estimate May 03, 2007 11:41am Normal - Potassium Level May 14, 2009 11:20am 3.9 mEq/L N 3.5-5.1 Prothromb Time International Ratio March 02, 2005 12:52pm 1.18 N 1.0-3.0 Prothrombin Time March 02, 2005 12:52pm 13.7 SECONDS N 10.5-14.0 Random Glucose May 14, 2009 11:20am 96 mg/dL N 70-110 Red Blood Count May 14, 2009 11:20am 4.64 M/uL N 4.20-5.40 Red Cell Distribution Width May 14, 2009 11:20am 10.3 % L 11.5- 14.5 Sodium Level May 14, 2009 11:20am 136 mEq/L N 136-145 Total Alkaline Phosphatase May 14, 2009 11:20am 72 U/L N 50-136 Total Bilirubin May 14, 2009 11:20am 0.20 mg/dL N 0.00-1.00 Total Protein May 14, 2009 11:20am 7.3 gm/dL N 6.4-8.2 Urine Alprazolam Level August 02, 2007 1:32pm Positive - Urine Amorphous Sediment October 30, 2008 10:30am Trace H - Urine Amphetamines Screen August 02, 2007 1:32pm Negative - SCREEN CUTOFF(NG/ML) 1000 Urine Appearance May 14, 2009 12:00am Clear - Urine Bacteria May 14, 2009 12:00am Negative - Urine Barbiturates Screen August 02, 2007 1:32pm Negative - SCREEN CUTOFF 200 Urine Benzodiazepines Screen August 02, 2007 1:32pm Positive - CUTOFF SCREEN 300 Urine Bilirubin May 14, 2009 12:00am Negative - Urine Cocaine Level August 02, 2007 1:00pm Negative - Urine Cocaine Screen August 02, 2007 1:32pm Negative - SCREEN CUTOFF 300 Urine Collection Time May 05, 2006 7:23pm 1440 MIN N 0-1440 Urine Color May 14, 2009 12:00am Yellow - Urine Creatinine May 05, 2006 7:23pm 44.8 mg/dL - Urine Creatinine 24 Hour May 05, 2006 7:23pm 1.21 gm/24 N 0.6-1.6 Urine Glucose (UA) May 14, 2009 12:00am Negative mg/dL - Urine HCG, Qualitative May 14, 2009 11:25am Negative - Urine Ketones May 14, 2009 12:00am Negative mg/dL - Urine Leukocyte Esterase May 14, 2009 12:00am Negative - Urine Marijuana (THC) Screen August 02, 2007 1:00pm Positive - Urine Mucus August 02, 2007 1:00pm Few H - Urine Nitrate May 14, 2009 12:00am Negative - Urine Nordiazepam Level August 02, 2007 1:32pm Negative - Urine Occult Blood May 14, 2009 12:00am Negative - Urine Opiates Confirmation August 02, 2007 1:32pm Negative - SCREEN CUTOFF 300 Opiate test includes codeine and morphine only. Urine Opiates Screen August 02, 2007 1:00pm Negative - Urine Oxazepam Level August 02, 2007 1:32pm Negative - Urine Phencyclidine Screen August 02, 2007 1:32pm Negative - SCREEN CUTOFF 25 Urine Protein May 14, 2009 12:00am Negative mg/dL - Urine RBC May 14, 2009 12:00am Negative /hpf - Urine Specific [place] May 14, 2009 12:00am 1.015 N 1.010-1.025 Urine Squamous Epithelial Cells May 14, 2009 12:00am 2-4 /hpf H - Urine Total Protein May 05, 2006 7:23pm 234.9 MG/24 HR H 50-100 Urine Total Volume May 05, 2006 7:23pm 2700 mL H 750-2500 Urine Urobilinogen May 14, 2009 12:00am 0.2 E.U./dL - Urine WBC May 14, 2009 12:00am Negative /hpf - Urine Yeast May 29, 2007 5:40pm 3-5 - Urine pH May 14, 2009 12:00am 7.0 - White Blood Count May 14, 2009 11:20am 6.4 K/uL N 4.8-10.8 Urine Drug Screen Specimen January 20, 2006 12:00am Sent to ref lab - Blood Drug Screen Comment August 02, 2007 1:32pm LAB: [facility] [address] [id number] DIRECTOR: ZACHERY WINTERS V PhD - Urine Cannabinoids Screen August 02, 2007 1:32pm Positive - SCREEN CUTOFF 50 Urine Carboxy THC Confirm (GC/MS) August 02, 2007 1:32pm CARBOXY THC GC/ MS CONF SCREEN CUTOFF(NG/ML) 165ng/ml 10 - Urine OH-Alprazolam Confirm (GC/MS) August 02, 2007 1:32pm 403 ng/ml - SCREEN CUTOFF 300 Blood Culture Blood June 07, 2008 11:40am NO GROWTH AFTER 5 DAYS Wound Culture Not Specified September 27, 2007 12:00am Urine Culture Urine,Random October 04, 2007 7:54pm Procedures Procedure Status Date Provider(s) X-ray of left knee, two views completed 10/15/14 NOA MILLS MD X-ray of right ankle, three or more views completed 10/15/14 NOA MILLS MD X-ray of right ankle, three or more views completed 11/24/14 JELENA ANDERSEN MD X-ray of left knee, four or more views completed 11/24/14 JELENA ANDERSEN MD X-ray of left shoulder, two or more views completed 01/08/15 ETHEL PEÑA D.O. Encounters Encounter Location Date/Time Departed Emergency [facility] 01/08/15 11:43pm Departed [facility] 11/24/14 10:42am Departed Emergency [facility] 10/15/14 11:14am Recent Diagnosis
--- OUTSIDE RECORDS SUMMARY | 2017-08-07 13:45 | XMS REPORT | Continuity of Care Document ---
Author Author [facility] Organization [facility] Address [facility] [address] [place] [phone] Phone Unavailable Support Name Relationship Address Phone NOA MILLS MD Caregiver [address] [facility] [[email or web address] FINESSE BEASLEY Next Of Kin [address] [id number] Insurance Providers Payer Name Policy Number Subscriber Name Relationship Self Pay Insurance Nica Beasley 18 Self / Same As Patient Advance Directives Directive Response Recorded Date/Time Do you have an Advanced Directive? No 07/24/05 12:31pm Advance Directives No 10/30/08 3:56pm Living Will No 10/30/08 3:56pm Health Care Proxy No 01/10/15 10:07pm Power of Blending Tank Helper for Health Care No 10/30/08 3:56pm Who [...] sprain Unknown Active Shoulder dislocation Unknown Active Shoulder pain Unknown Active Medications Medication Dose Route Sig [...] PAIN OR TEMPERATURE 20 Qty 11/24/14 Active Acetaminophen/Hydrocodone Bitart (Lortab 7.5-325 Tab*) 1 Each PO EVERY 4 HRS NEEDED PAIN For PAIN 14 Qty 01/10/15 Active Social History Social History Problem Response Recorded Date/Time Smoking Status Current every day smoker 11/24/2014 12:30pm Query Response Start Date Stop Date Smoking Status Current every day smoker Hospital Discharge Instructions No hospital discharge instructions. Plan of Care No plan of care. Functional Status Query Response Date Recorded [place] Coma Scale Total 15 January 10, 2015 10:23pm Patient Behavior Appropriate January 10, 2015 10:23pm Allergies, Adverse Reactions, Alerts Allergen Type Severity [...] (Fahrenheit) 98.1 degrees F (97.6 - 99.5) Temperature Source Temporal Artery Pulse Rate (adult) 81 bpm (60 - 90) Respiratory Rate 18 bpm (12 - 24) Blood Pressure 132/84 mm Hg O2 Sat by Pulse Oximetry 97 % (90 - 100) Oxygen Delivery Method Pain Intensity 7 Pain Location Body Site Modifier Pain Description Pain Duration 31-60 Minutes Height 5 ft 9 in Weight 245 lb Body Mass Index 36.0 kg/m^2 Results Test Source Date Result Interp. [...] 2009 12:00am Negative /hpf - Urine Specific [place] May 14, 2009 12:00am 1.015 N 1.010-1.025 [...] August 02, 2007 1:32pm LAB: [facility] [address] [id number] DIRECTOR: ZACHERY WINTERS V PhD - Urine [...] Encounters Encounter Location Date/Time Departed [facility] 01/10/15 10:05pm Departed [facility] 01/08/15 11:43pm Departed [facility] 11/24/14 10:42am Departed [facility] 10/15/14 11:14am Recent Diagnosis
--- OUTSIDE RECORDS SUMMARY | 2017-08-07 13:45 | XMS REPORT | Continuity of Care Document ---
Author Author [facility] Organization [facility] Address [facility] [address] [address] Phone Unavailable Support Name Relationship Address Phone DIGNA GROSS MD Caregiver [address] [place] [phone] Unavailable FINESSE [place]ASLEY Next Of Kin [address] [phone] Insurance Providers Payer Name Policy Number Subscriber Name Relationship Self Pay Insurance Nica Beasley 18 Self / Same As Patient Advance Directives Directive Response Recorded Date/Time Do you have an Advanced Directive? No 07/24/05 12:31pm Advance Directives No 11/19/16 11:21pm Living Will N N 01/07/17 11:28am Health Care Proxy No 02/11/17 5:32pm Power of Rf Engineer for Health Care No 11/19/16 11:21pm Organ, [...] Mg 15 Mg Oral Daily 10 01/08/17 Chlordiazepoxide Hcl 10 Mg 10 Mg Oral Bedtime 15 05/27/17 Cyclobenzaprine Hcl (Flexeril*) 10 Mg 5 Mg [...] Tablet, 500 Mg Oral Twice A Day 10/06/15 Discontinued Meloxicam 7.5 Mg Tablet, 7.5 Mg [...] discharge instructions. Plan of Care Discharge Date 02/11/17 4:35pm Disposition 07 AMA, LWOT, LWBS Condition at Discharge Against Medical Advice Prescriptions See Medication Section Functional Status Query Response Date Recorded [place] Coma Scale Total 15 February 11, 2017 7:24pm Patient Behavior Belligerent February 11, 2017 6:53pm Allergies, Adverse Reactions, Alerts Allergen Type Severity [...] (Fahrenheit) 98.4 degrees F (97.6 - 99.5) 02/11/2017 6:53pm Temperature Source Temporal Artery 02/11/2017 6:53pm Pulse Rate (adult) 113 bpm (60 - 90) 02/11/2017 7:24pm Respiratory Rate 20 bpm (12 - 24) 02/11/2017 7:24pm Blood Pressure 144/86 mm Hg 02/11/2017 6:53pm O2 Sat by Pulse Oximetry 95 % (90 - 100) 02/11/2017 6:53pm Oxygen Delivery Method 02/11/2017 6:53pm Pain Intensity 0 02/11/2017 7:24pm Pain Location Body Site Modifier 02/11/2017 7:24pm Pain Description 02/11/2017 7:24pm Pain Duration > 6 Hours 02/11/2017 7:24pm Height 5 ft 9 in Weight 160 [...] RES[facility] 11/20/16 3505 READ BACK PERFORMED Limit of detection: 3 mg/dL Toxic concentration is dependent upon individual usage history. Potentially lethal concentration: > ei=386 mg/dL Tricyclic Antidepressants NEGATIVE 11/19/2016 10:17pm 11/19/2016 [...] 11/19/2016 10:17pm 11/19/2016 10: 28pm Urine Specific [place] <=1.005 L 1.010-1.025 11/19/2016 10:17pm 2016 10:28pm [...] Discharge/Depart Date Attending Provider Departed [facility] 02/11/17 4:15pm 02/11/17 4:35pm DIGNA GROSS MD Departed [facility] 02/01/17 11:52am 02/01/17 2:55pm ETHEL ALVARENGA DO Departed [facility] 01/17/17 12:18am 01/17/17 1:10am RAQUEL ARIAS MD Departed [facility] 01/08/17 12:08pm 01/08/17 12:51pm ISAMAR PETTY DO Discharged Inpatient (obs) [facility] 11/19/16 11:10pm 11/20/16 9:50am NATALIA VELAZQUEZ MD
--- OUTSIDE RECORDS SUMMARY | 2017-08-07 13:46 | XMS REPORT | Continuity of Care Document ---
Author Author [facility] Organization [facility] Address [facility] [address] [place] [address] Phone Unavailable Support Name Relationship Address Phone DIGNA GROSS MD Caregiver [address] [place] [address] Unavailable AVERY DAMON MD Caregiver [address] [place] [address] NATALIA VELAZQUEZ MD Caregiver [address] [place] [address] [phone] FINESSE BEASLEY Next Of Kin [address] [place] [address] Insurance Providers Payer Name Policy Number Subscriber Name Relationship Self Pay Insurance Nica Beasley 18 Self / Same As Patient Advance Directives Directive Response Recorded Date/Time Do you have an Advanced Directive? No 07/24/05 12:31pm Advance Directives No 03/30/17 8:09pm Living Will N N 03/30/17 8:09pm Health Care Proxy No 03/30/17 8:09pm Power of Strap Cutting Machine Operator for Health Care No 03/30/17 8:09pm Organ, Tissue, or Eye Donor No 03/30/17 8:09pm Do you have a signed organ donor card? No 07/24/05 12:31pm Chief Complaint and Reason for Visit Chief Complaint AKA, METABOLIC ACIDOSIS, ETOH WITHDRAWAL Reason for Visit Knee sprain Knee sprain Subdural hematoma Urinary tract infection Problems Active Problems Medical Problem Onset Date [...] Units Route Directions Days/Qty Instructions Start Date [Folic Acid/Vitamin B Comp W-C] 1 Ea 1 Ea Oral Daily 04/04/17 [Thiamine Hcl] 100 Mg 100 Mg Oral Daily 04/04/17 Past Home Medications Medication Directions Ordered [...] Mg Oral Twice A Day 11/19/16 Discontinued No Known Medications ., 01/07/17 Discontinued Meloxicam 15 Mg Tablet, 15 Mg Oral Daily 01/08/17 Discontinued Chlordiazepoxide Hcl 10 Mg Capsule, 10 Mg Oral Bedtime 01/17/17 Discontinued Cyclobenzaprine Hcl (Flexeril*) 10 Mg Tablet, 5 Mg Oral Three Times A Day Discontinued Baclofen 10 Mg Tablet, 10 Mg Oral Three Times A Day 01/17/17 Discontinued Cephalexin Monohydrate 500 Mg Capsule, 500 Mg Oral Three Times A Day Discontinued [Ibuprofen ] , Oral As Needed 03/30/17 Discontinued Social History Social History Problem Response Recorded Date/Time Smoking Status Current every day smoker 03/30/2017 8:09pm Tobacco Use Cigarettes 11/15/2015 9:46am Alcohol Use alcoholic 03/30/2017 4:21pm Sexual History Heterosexual 06/01/2016 9:23am Query Response Start Date Stop Date Smoking Status Current every day smoker Hospital Discharge Instructions Discharge Instructions Provider Instructions Make Appointment with: Dr. Adelina Wang [phone] Follow Up In: 1 Week Diet: Regular (No Restrictions) Smoking Cessation If you are a smoker, the following is recommended: Stop all tobacco use; for help quitting, please call [phone]. Notify Physician If: Fever Greater 100.5 F, Chest Pain Additional Instructions: You were admitted because the alcohol and done some very bad damage to her body. Thankfully, over the last several days, the alcohol has gotten out of your system and you did not have any symptoms of seizure or severe withdrawals. Congratulations! You have gone through alcohol withdrawal treatment. Furthermore, please follow up with [facility] and Alcoholics Anonymous because you're on your way to long-term success with stopping alcohol use. New medications Thiamine once a day Folic acid once a day Thank you for allowing us to be involved in your care! Nursing Instructions Flu Vaccine Received this Visit: No Pneumonia Vaccine Received this Visit: No Education #1 Topic: ETOH WITHDRAWLS Methods: Discussion Response: Verbalize understanding Recipient: Patient Note: [facility][1]- [phone] - EMERGENCY LINE Patient specific education materials provided?: Yes Patient Request Electronic Discharge Instructions: No Patient Received Electronic Discharge Instructions: No Patient Health Summary printed/downloaded for the patient?: No Valuables Returned: Yes Medications Returned: No Plan of Care Discharge Date 04/04/17 12:18pm Disposition 01 HOME, [facility],ASSISTED LIVING Instructions/Education Provided Alcohol Withdrawal (DC) Prescriptions See Medication Section Care Plan and Goals See Discharge Instructions Section Functional Status Query Response Date Recorded Hull Coma Scale Total 15 April 03, 2017 8:30am Patient Behavior Appropriate Cooperative April 03, 2017 8:30am Allergies, Adverse Reactions, Alerts Allergen Type Severity Reaction Status Last Updated Codeine Allergy Unknown Active 03/30/17 Propoxyphene Allergy Unknown DARVOCET Active 03/30/17 Immunizations Name Given Type Hx Diphtheria, Pertussis, Tetanus Vaccination Up To Date Historical Hx Hepatitis B Vaccination Unknown Historical Hx Influenza Vaccination No Historical Hx Pneumococcal Vaccination No Historical Hx Tetanus, Diphtheria Vaccination No Historical Hx Tetanus Toxoid Vaccination No Historical Vital Signs Acute Vital Signs Vital Response Date/Time Temperature (Fahrenheit) 98.5 degrees F (97.6 - 99.5) 04/04/2017 10:24am Temperature Source Temporal Artery 04/04/2017 10:24am Pulse Rate (adult) 93 bpm (60 - 90) 04/04/2017 10:24am Respiratory Rate 20 bpm (12 - 24) 04/04/2017 10:24am Blood Pressure 127/87 mm Hg 04/04/2017 10:24am O2 Sat by Pulse Oximetry 99 % (90 - 100) 04/04/2017 10:24am Oxygen Delivery Method Aerosol Mask 03/30/2017 6:02pm Pain Intensity 8 04/03/2017 8:34am Pain Intensity 7 04/02/2017 2:20pm Pain Location Body Site Modifier 04/04/2017 8:38am Pain Description 04/04/2017 8:38am Pain Duration 31-60 Minutes 02/16/2017 9:30pm Height 5 ft 9 in Weight 130 lb Body Mass Index 19.0 kg/m^2 Results Pending Laboratory Results Test Name Collection Date/Time Pending Microbiology Results Procedure Source Collection Date/Time Procedures Procedure Status Date Provider(s) X-ray of left knee, three views Completed 01/08/17 ISAMAR PETTY DO Computed tomography of abdomen and pelvis without contrast Completed ETHEL ALVARENGA DO Encounters Encounter Location Arrival/Admit Date Discharge/Depart Date Attending Provider Discharged Inpatient [place] 03/30/17 6:08pm 04/04/17 12:18pm NATALIA VELAZQUEZ MD Registered Clinic [place] 03/08/17 12:47am [facility] Registered Clinic [place] 02/19/17 12:05pm TRI[facility], EMS Departed Emergency Room [place] 02/16/17 8:51pm 02/16/17 9:17pm ETHEL PEÑA D.O. Departed Emergency Room [place] 02/14/17 11:03pm 02/14/17 11:12pm RAQUEL ARIAS MD Departed Emergency Room [place] 02/11/17 4:15pm 02/11/17 4:35pm DIGNA GROSS MD Departed Emergency Room [place] 02/01/17 11:52am 02/01/17 2:55pm ETHEL ALVARENGA DO Departed Emergency Room [place] 01/17/17 12:18am 01/17/17 1:10am RAQUEL ARIAS MD Departed Emergency Room [place] 01/08/17 12:08pm 01/08/17 12:51pm ISAMAR PETTY DO Recent Diagnosis Knee sprain Knee sprain Subdural hematoma Urinary tract infection
--- OUTSIDE RECORDS SUMMARY | 2017-08-07 13:46 | XMS REPORT | Continuity of Care Document ---
Author Author [facility] Organization [facility] Address [facility] [address] [place] [address] Phone Unavailable Support Name Relationship Address Phone ETHEL PEÑA D.O. Caregiver [address] [place] [address] NATALIA VELAZQUEZ MD Caregiver [address] [place] [address] FINESSE BEASLEY Next Of Kin [address] [place] [address] [id number] Insurance Providers Payer Name Policy Number Subscriber Name Relationship Self Pay Insurance Nica Beasley 18 Self / Same As Patient Advance Directives Directive Response Recorded Date/Time Do you have an Advanced Directive? No 07/24/05 12:31pm Advance Directives No 11/19/16 11:21pm Living Will No 11/19/16 11:21pm Health Care Proxy No 11/19/16 11:21pm Power of Rugby League Footballer for Health Care No 11/19/16 11:21pm Organ, Tissue, or Eye Donor No 11/19/16 11:21pm Do you have a signed organ donor card? No 07/24/05 12:31pm Chief Complaint and Reason for Visit Chief Complaint ALCOHOL INTOXICATION Reason for Visit Headache Urinary tract infection Problems Active Problems Medical [...] Acute Urinary tract infection Unknown Acute Medications Past Home Medications Medication Directions Ordered Status [...] Discharge Instructions Provider Instructions Make Appointment with: [facility] [phone] Follow Up In: 2 Weeks Make additional appointment wi: Other: [facility], Outpatient alcohol treatment Diet: Regular (No Restrictions) Smoking Cessation If you are a smoker, the following is recommended: Stop all tobacco use; for help quitting, please call [phone]. Notify Physician If: Weight Gain More Than 5lb, Fever Greater 100.5 F Additional Instructions: You were admitted for face pain. Please stop taking the clindamycin. Please start taking the augmentin 875 mg twice daily for the next 10 days. If your symptoms have not improved at the end of the antibiotic course, please return to the dentist office for additional antibiotics. Please see Meredith, your egg caser, at [facility], for outpatient alcohol withdrawal treatment. Nursing Instructions Flu Vaccine Received this Visit: No Pneumonia Vaccine Received this Visit: No Education #1 Topic: ALCOHOL DEPENDENCE AND WITHDRAWL Methods: Discussion Response: Verbalize understanding Recipient: Patient, Family Note: NEW SCRIPT FOR ANTIBIOTIC PLEASE SEE [facility] ON 12/08/16- 4PM FOR FOLLOW UP Patient specific education materials provided?: Yes Patient Request Electronic Discharge Instructions: No Patient Received Electronic Discharge Instructions: No Patient Health Summary printed/downloaded for the patient?: No Valuables Returned: Yes Medications Returned: Yes Plan of Care Discharge Date 11/20/16 9:50am Disposition 01 HOME, RESIDENTIAL,ASSISTED LIVING Instructions/Education Provided Abuse of Alcohol (DC) Alcohol Dependence (ED) Prescriptions See Medication Section Care Plan and Goals See Discharge Instructions Section Functional Status Query Response Date Recorded Darshana Coma Scale Total 15 November 19, 2016 9:31pm Patient Behavior Appropriate Cooperative Anxious Restless Fatigued November 19, 2016 11:21pm Allergies, Adverse Reactions, Alerts Allergen Type Severity [...] Vital Signs Vital Response Date/Time Temperature (Fahrenheit) 97.2 degrees F (97.6 - 99.5) 11/20/2016 9:16am Temperature Source Temporal Artery 11/20/2016 9:16am Pulse Rate (adult) 88 bpm (60 - 90) 11/20/2016 9:16am Respiratory Rate 16 bpm (12 - 24) 11/20/2016 9:16am Blood Pressure 154/114 mm Hg 11/20/2016 9:16am O2 Sat by Pulse Oximetry 100 % (90 - 100) 11/20/2016 9:16am Oxygen Delivery Method 11/19/2016 11:15pm Pain Intensity 10 11/20/2016 5:51am Pain Location Body Site Modifier 11/20/2016 8:25am Pain Description Aching 11/20/2016 7:21am Pain Duration SEVERAL DAYS 11/19/2016 11:21pm Height 5 ft 9 in Weight 165 lb Body Mass Index 24.0 kg/m^2 Results Pending Laboratory Results Test Name Collection Date/Time Procedures Procedure Status Date Provider(s) Computed tomography of head without contrast Active [...] lateral views Active 09/12/16 ISAMAR PETTY DO Computed tomography of head without contrast Active 09/26/16 DIGNA GROSS MD Computed tomography of facial bones and paranasal sinuses without then with contrast Active 11/20/16 NATALIA VELAZQUEZ MD Encounters Encounter Location Arrival/Admit Date Discharge/Depart Date Attending Provider Discharged Inpatient (obs) [place] 11/19/16 11:10pm 11/20/16 9:50am NATALIA VELAZQUEZ MD Departed Emergency Room [place] 09/26/16 2:21am 09/26/16 3:16am DIGNA GROSS MD Departed Emergency Room [place] 09/12/16 1:42pm 09/12/16 6:10pm ISAMAR PETTY DO Departed Emergency Room [place] 09/05/16 6:21pm 09/05/16 8:34pm RAQUEL ARIAS MD Departed Emergency Room [place] 08/30/16 11:36pm 08/31/16 12:00am ETHEL PEÑA D.O. Departed Emergency Room [place] 08/26/16 12:57pm 08/26/16 2:50pm ISAMAR PETTY DO Recent Diagnosis Headache Urinary tract infection
--- OUTSIDE RECORDS SUMMARY | 2017-08-07 13:46 | XMS REPORT | Continuity of Care Document ---
Author Author [facility] Organization [facility] Address [facility] [address] [place] [phone] Phone Unavailable Support Name Relationship Address Phone MARLEEN PRADO MD Caregiver [address] [place] [address] Unavailable GALE FINESSE Next Of Kin [address] 135507 Insurance Providers Payer Name Policy Number Subscriber Name Relationship Self Pay Insurance Nica Díaz 18 Self / Same As Patient Advance Directives Directive Response Recorded Date/Time Do you have an Advanced Directive? No 07/24/05 12:31pm Advance Directives No 10/30/08 3:56pm Living Will No 10/30/08 3:56pm Health Care Proxy No 06/01/16 9:11am Power of Fraud Representative for Health Care No 10/30/08 3:56pm Who is designated as your agent/rep. to act on your behalf? PT 10/15/14 11: 12am Organ, Tissue, or Eye Donor No 10/30/08 3:56pm Do you have a signed organ donor card? No 07/24/05 12:31pm Chief Complaint and Reason for Visit Chief Complaint ABDOMINAL PAIN Reason for Visit [id number] Abdominal pain mild pancreatitis Problems Active Problems Medical Problem Onset Date Status Abdominal pain Unknown Acute Ankle sprain Unknown Acute Ankle [...] Use Cigarettes 11/15/2015 9:46am Alcohol Use alcoholic 06/01/2016 9:23am Drug Use none 06/01/2016 9:23am Sexual History Heterosexual 06/01/2016 9:23am Query Response Start Date Stop Date Smoking Status Current every day smoker Hospital Discharge Instructions No hospital discharge instructions. Plan of Care Discharge Date 06/01/16 3:20pm Disposition 01 HOME, LONG TERM,ASSISTED LIVING Condition at Discharge Stable Instructions/Education Provided Abuse of Alcohol (ED) Abdominal Pain (ED) Prescriptions See Medication Section Functional Status Query Response Date Recorded Patient Behavior Restless Anxious Crying June 01, 2016 9:17am Allergies, Adverse Reactions, Alerts Allergen Type Severity Reaction Status Last Updated Codeine Allergy Unknown Active 06/01/16 Propoxyphene Allergy Unknown DARVOCET Active 06/01/16 Immunizations Name Given Type Hx Diphtheria, Pertussis, Tetanus Vaccination Up To Date Historical Hx Hepatitis B Vaccination Unknown Historical Hx Influenza Vaccination No Historical Hx Pneumococcal Vaccination No Historical Hx Tetanus, Diphtheria Vaccination No Historical Vital Signs Acute Vital Signs Vital Response Date/Time Temperature (Fahrenheit) 97.5 degrees F (97.6 - 99.5) 06/01/2016 3:10pm Temperature Source Temporal Artery 06/01/2016 3:10pm Pulse Rate (adult) 73 bpm (60 - 90) 06/01/2016 3:10pm Respiratory Rate 14 bpm (12 - 24) 06/01/2016 3:10pm Blood Pressure 139/91 mm Hg 06/01/2016 3:10pm O2 Sat by Pulse Oximetry 98 % (90 - 100) 06/01/2016 3:10pm Oxygen Delivery Method 06/01/2016 3:10pm Pain Description 06/01/2016 11:25am Height 5 ft 9 in Weight 119 lb Body Mass Index 17.0 kg/m^2 Results Pending Laboratory Results Test Name Collection Date/Time Procedures Procedure Status Date Provider(s) X-ray of left shoulder, two or more views Active 03/23/16 JONO GOLDMAN MD X-ray of left knee, three views Active 03/23/16 JONO GOLDMAN MD X-ray of left ankle, three or more views Active 03/23/16 JONO GOLDMAN MD Foot Lt.4 Views(3OR More) Active 03/23/16 JONO GOLDMAN MD Computed tomography of abdomen and pelvis without contrast Completed MARLENE PRADO MD Complete ultrasound of pelvis Completed 06/01/16 MARLENE PRADO MD Encounters Encounter Location Arrival/Admit Date Discharge/Depart Date Attending Provider Departed Emergency Room [place] 06/01/16 9:12am 06/01/16 3:20pm MARLENE PRADO MD Departed Emergency Room [place] 03/23/16 12:44am 03/23/16 2:28am JONO GOLDMAN MD Recent Diagnosis
--- OUTSIDE RECORDS SUMMARY | 2017-08-07 13:47 | XMS REPORT | Continuity of Care Document ---
Author Author [facility] Organization [facility] Address [facility] [address] [place] [address] Phone Unavailable Support Name Relationship Address Phone JELENA ANDERSEN MD Caregiver [address] [place] [address] GALE FINESSE Next Of Kin [address] [address] Insurance Providers Payer Name Policy Number Subscriber Name Relationship Self Pay Insurance Nica Beasley 18 Self / Same As Patient Advance Directives Directive Response Recorded Date/Time Do you have an Advanced Directive? No 07/24/05 12:31pm Advance Directives No 10/30/08 3:56pm Living Will No 10/30/08 3:56pm Health Care Proxy No 11/24/14 10:39am Power of Chief Transfer And Pumphouse Operator for Health Care No 10/30/08 3:56pm Who is designated as your agent/rep. to act on your behalf? PT 10/15/14 11: 12am Organ, Tissue, or Eye Donor No 10/30/08 3:56pm Do you have a signed organ donor card? No 07/24/05 12:31pm Problems Medical Problems Problem Onset Date Status Knee sprain Unknown Active Ankle sprain Unknown Active Knee sprain Unknown Active Ankle sprain Unknown Active Medications Medication Dose Route Sig [...] Status Current every day smoker 11/24/2014 12:30pm Alcohol Use occasionally 11/24/2014 12:30pm Query Response Start Date Stop Date Smoking Status Current every day smoker Hospital Discharge Instructions No hospital discharge instructions. Plan of Care No plan of care. Functional Status Query Response Date Recorded Darshana Coma Scale Total 15 November 24, 2014 10:40am Patient Behavior Cooperative November 24, 2014 10:40am Allergies, Adverse Reactions, Alerts Allergen Type Severity Reaction Status Last Updated Codeine Allergy Unknown Active 10/15/14 Propoxyphene Allergy Unknown DARVOCET Active 10/15/14 Immunizations Name Given Type Hx Diphtheria, Pertussis, Tetanus Vaccination Unknown Historical Hx Hepatitis B Vaccination Unknown Historical Hx Influenza Vaccination N REFUSED Historical Hx Pneumococcal Vaccination No Historical Hx Tetanus, Diphtheria Vaccination Yes Historical Vital Signs Acute Vital Signs Vital Response Date/Time Temperature (Fahrenheit) 98.7 degrees F (97.6 - 99.5) Temperature Source Temporal Artery Pulse Rate (adult) 114 bpm (60 - 90) Respiratory Rate 20 bpm (12 - 24) Blood Pressure 140/85 mm Hg O2 Sat by Pulse Oximetry 98 % (90 - 100) Oxygen Delivery Method Pain Intensity 8 Pain Location Body Site Modifier Pain Description Throbbing Pain Duration 3-6 Hours Height 5 ft 9 in Weight 242 lb Body Mass Index 35.0 kg/m^2 Results Test Source Date Result Interp. [...] 2009 12:00am Negative /hpf - Urine Specific [place] May 14, 2009 12:00am 1.015 N 1.010-1.025 [...] August 02, 2007 1:32pm LAB: [facility] [address] [id number] DIRECTOR: ZACHERY WINTERS V PhD - Urine [...] more views completed 11/24/14 JELENA ANDERSEN MD Encounters Encounter Location Date/Time Departed Emergency Room [place] 11/24/14 10:42am Departed Emergency Room [place] 10/15/14 11:14am Recent Diagnosis
--- OUTSIDE RECORDS SUMMARY | 2017-08-07 13:47 | XMS REPORT ---
Author Author PAPITO [facility]AR[facility] Organization [facility] Address [address] [place] [address] Care Team Providers Care Mail Messenger Contractor Name Role Phone PAPITO CHAVARRIA Unavailable PROBLEMS Type Condition ICD9-CM Code [id number] Code Onset Dates Condition Status SNOMED Code Problem Acute cystitis with hematuria N30.01 Active 71976493 Problem Injury of right hip region S79.911A Active 62231531010634025 Problem Allergic reaction, initial encounter T78.40XA Active 657128198 Problem Bronchitis J40 Active 64234666 Problem Essential hypertension I10 Active 05017706 ALLERGIES No Information SOCIAL HISTORY Never Assessed PLAN OF CARE VITAL SIGNS MEDICATIONS Unknown Medications RESULTS No Results PROCEDURES No Known procedures IMMUNIZATIONS No Known Immunizations MEDICAL (GENERAL) HISTORY Type Description Date Medical History Hypertension Surgical History rotator cuff tear repair Surgical History section Surgical History left knee replacement Hospitalization History Surgery(s)/Childbirth(s) only Hospitalization History Seizure 2016
--- OUTSIDE RECORDS SUMMARY | 2017-08-07 13:47 | XMS REPORT | Continuity of Care Document ---
Author Author [facility] Organization [facility] Address [facility] [address] [place] [address] Phone Unavailable Support Name Relationship Address Phone ETHEL PEÑA D.O. Caregiver [address] [place], [place] [address] KIA HOOPER M.D. Caregiver [address] [place], [place] [address] FINESSE BEASLEY Next Of Kin [address] [place] [address] [id number] Insurance Providers Payer Name Policy Number Subscriber Name Relationship Self Pay Insurance Nica Beasley 18 Self / Same As Patient Advance Directives Directive Response Recorded Date/Time Do you have an Advanced Directive? No 07/24/05 12:31pm Advance Directives No 10/30/08 3:56pm Living Will No 10/30/08 3:56pm Health Care Proxy No 06/27/16 8:57pm Power of Marketing Project Lead for Health Care No 10/30/08 3:56pm Organ, Tissue, or Eye Donor No 10/30/08 3:56pm Do you have a signed organ donor card? No 07/24/05 12:31pm Chief Complaint and Reason for Visit Chief Complaint ALCOHOL PROBLEM Reason for Visit Alcohol abuse Problems Active Problems Medical Problem Onset Date Status Abdominal pain Unknown Acute Alcohol abuse Unknown Acute Ankle sprain Unknown Acute Ankle [...] 11/15/2015 9:46am Sexual History Heterosexual 06/01/2016 9:23am Employment Unemployeed 06/27/2016 9:27pm Query Response Start Date Stop Date Smoking Status Current every day smoker Hospital Discharge Instructions No hospital discharge instructions. Plan of Care Discharge Date 06/28/16 11:40am Disposition 01 HOME, HALF-WAY,ASSISTED LIVING Condition at Discharge Improved Instructions/Education Provided Abuse of Alcohol (ED) Prescriptions See Medication Section Functional Status Query Response Date Recorded Patient Behavior Restless Anxious June 27, 2016 9:07pm Allergies, Adverse Reactions, Alerts Allergen Type Severity [...] (Fahrenheit) 98.0 degrees F (97.6 - 99.5) 06/28/2016 11:35am Temperature Source Temporal Artery 06/28/2016 11:35am Pulse Rate (adult) 90 bpm (60 - 90) 06/28/2016 11:35am Respiratory Rate 18 bpm (12 - 24) 06/28/2016 11:35am Blood Pressure 148/79 mm Hg 06/28/2016 11:35am O2 Sat by Pulse Oximetry 98 % (90 - 100) 06/28/2016 11:35am Oxygen Delivery Method 06/28/2016 11:35am Pain Description 06/01/2016 11:25am Height 5 ft 10 in Weight 176 lb Body Mass Index 25.0 kg/m^2 Results [...] Hemoglobin Concent 35.1 g/dL 30.0-37.0 06/01/2016 9: [facility] 06/01/2016 9:48am Red Cell Distribution Width 13.9 % 11.5-14.5 06/01/2016 9:34a 2015 9:48am Platelet Count 214 K/uL 130-400 06/01/2016 9:34a 06/01/2016 9:48am Mean Platelet Volume 8.1 fL 7.4-10.4 06/01/2016 9:34a 06/01/2016 9: 48am Neutrophils (%) (Auto) 72.3 % 42.2-75.2 06/01/2016 9:34a 06/01/2016 9: 48am Lymphocytes (%) (Auto) 18.7 % L 20.5-51.1 06/01/2016 9:34a 06/01/2016 9 :48am Monocytes (%) (Auto) 7.3 % 1.7-9.3 06/01/2016 9:[facility] 06/01/2016 9:48am Eosinophils (%) (Auto) 1.0 % [...] Transf (AST/SGOT) 74 U/L H 15-37 06/01/2016 9:34a 06/01 10:03am Alanine Aminotransferase (ALT/SGPT) 67 U/L 12-78 06/01/2016 9:34a 04/2016 10:03am Total Alkaline Phosphatase 75 U/L 46-116 06/01/2016 9:34am 06/01/2016 10:03am Lipase 293 U/L H 65-230 06/01/2016 9:34am 06/01/2016 10:03am Ethyl Alcohol Level 116.0 mg/dL <3.0 06/01/2016 9:34am 06/01/2016 10: 03am Limit of detection: 3 mg/dL Toxic concentration is dependent upon individual usage history. Potentially lethal concentration: > za=842 mg/dL Tricyclic Antidepressants NEGATIVE 06/01/2016 10:05am 06/01/2016 [...] 06/01/2016 10:05am 06/01/2016 10: 10am Urine Specific [place] 1.010 1.010-1.025 06/01/2016 10:05am 2015 10:10am Urine [...] 10: 11am Urine Amphetamines Screen Negative ng/mL Kupzij=[id number] 06/01/2016 10:05am 06/05/2016 2:24pm Amphetamine test includes Amphetamine and Methamphetamine. Urine Barbiturates Screen Negative ng/mL Svulov=160 06/01/2016 10:05am 06/05/2016 2:24pm Urine Benzodiazepines Screen Negative ng/mL Cyebpk=379 06/01/2016 10: 05am 06/05/2016 2:24pm Urine Cannabinoids Screen Positive H Cutoff=50 06/01/2016 10:05am 2:37pm Carboxy THC GC/MS Conf 60 ng/mL Cutoff=10 01 Urine Cocaine Screen Negative ng/mL Fgoqks=263 06/01/2016 10:05am 06/05 2:24pm Urine Opiates Screen Negative ng/mL Lolksf=709 06/01/2016 10:05am 06/05 2:24pm Opiate test includes Codeine and Morphine only. Urine Phencyclidine Screen Negative ng/mL Cutoff=25 06/01/2016 10:05am 06/05/2016 2:25pm Performed at: - [facility] [id number] Counter Maker: Charles Sultana MD, Phone: [phone] Glomerular Filtration Rate Calc 100.6 mL/min 06/01/2016 9:34am 2015 10:03am Pending Laboratory Results Test Name Collection Date/Time Procedures Procedure Status Date Provider(s) Computed tomography of abdomen and pelvis without contrast Active 06/01/16 MARLENE PRADO MD Complete ultrasound of pelvis Active 06/01/16 MARLENE PRADO MD Encounters Encounter Location Arrival/Admit Date Discharge/Depart Date Attending Provider Departed Emergency Room [place] 06/27/16 8:57pm 06/28/16 11:40am KIA HOOPER M.D. Departed Emergency Room [place] 06/01/16 9:12am 06/01/16 3:20pm MARLENE PRADO MD Recent Diagnosis
[2017-08-07 13:54] LABS: BASOPHILS % (AUTO) 1 % (0-10); EOSINOPHILS # (AUTO) 0.1 10^3/uL (0.0-0.3); EOSINOPHILS % (AUTO) 1 % (0-10); LYMPHOCYTES # (AUTO) 2.4 X 10^3 (1.0-4.0); LYMPHOCYTES % (AUTO) 56 % (12-44); MEAN CORPUSCULAR HEMOGLOBIN 29 PG (25-34); MEAN CORPUSCULAR HGB CONC 33 G/DL (32-36); MEAN CORPUSCULAR VOLUME 88 FL (80-99); MEAN PLATELET VOLUME 8.8 FL (7.4-10.4); MONOCYTES # (AUTO) 0.4 X 10^3 (0.0-1.0); MONOCYTES % (AUTO) 10 % (0-12); NEUTROPHILS # (AUTO) 1.4 X 10^3 (1.8-7.8); NEUTROPHILS % (AUTO) 33 % (42-75); PLATELET COUNT 200 10^3/uL (130-400); RED BLOOD COUNT 3.91 10^6/uL (4.35-5.85); RED CELL DISTRIBUTION WIDTH 18.6 % (10.0-14.5); WHITE BLOOD COUNT 4.4 10^3/uL (4.3-11.0)
[2017-08-07 14:13] LABS: ALANINE AMINOTRANSFERASE 16 U/L (0-55); ALBUMIN 3.6 GM/DL (3.2-4.5); ANION GAP 12 MMOL/L (5-14); ASPARTATE AMINO TRANSFERASE 30 U/L (5-34); BILIRUBIN,TOTAL 0.1 MG/DL (0.1-1.0); BLOOD UREA NITROGEN 6 MG/DL (7-18); BUN/CREATININE RATIO 10; CALCIUM 8.1 MG/DL (8.5-10.1); CARBON DIOXIDE 25 MMOL/L (21-32); CHLORIDE 108 MMOL/L (98-107); CREATININE SERUM 0.58 MG/DL (0.60-1.30); GFR ESTIMATED > 60; GLUCOSE 93 MG/DL (70-105); POTASSIUM 3.7 MMOL/L (3.6-5.0); SALICYLATE < 5.0 MG/DL (5.0-20.0); SODIUM 145 MMOL/L (135-145)
[2017-08-07 14:14] LABS: ACETAMINOPHEN < 10 UG/ML (10-30)
[2017-08-07 14:15] LABS: ALCOHOL 476 MG/DL (<10)
[2017-08-07 15:30] VITALS: BP 109/61
== END 2017-08-07 15:30 | disposition home or self-care (01) ==
LOC: ER 13:32
DX: S05.11XA Contusion of eyeball and orbital tissues, right eye, initial encounter (principal); S05.12XA Contusion of eyeball and orbital tissues, left eye, initial encounter; F10.129 Alcohol abuse with intoxication, unspecified; Y04.8XXA Assault by other bodily force, initial encounter
CPT/HCPCS: 36415; 80053; 80320; 80329; 85025; 99281

== ENCOUNTER 2017-08-10 22:38 | Emergency (ER) | payer SELFPAY ==
[~2017-08-10] VITALS: Ht 175.3 cm; Wt 81.6 kg
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
[2017-08-10] MEDS ORDERED: KETOROLAC 30 MG/ML VIAL IVP ONE (23:00)
[2017-08-10 23:12] LABS: BILIRUBIN,URINE NEGATIVE (NEGATIVE); KETONES,URINE NEGATIVE (NEGATIVE); LEUKOCYTE ESTERASE ,URINE NEGATIVE (NEGATIVE); NITRITE,URINE POSITIVE (NEGATIVE); PH,URINE 6.5 (5-9); PROTEIN,URINE NEGATIVE (NEGATIVE); UROBILINOGEN,URINE NORMAL (NORMAL)
[2017-08-10] MEDS ORDERED: OLANZapine 5 MG ODT (ZyPREXA ZYDIS) PO ONE (23:15)
[2017-08-10 23:20] LABS: SQUAMOUS EPITHELIAL CELL,UR RARE /HPF; WBC,URINE RARE /HPF
[2017-08-10 23:23] LABS: BASOPHILS % (AUTO) 0 % (0-10); EOSINOPHILS % (AUTO) 0 % (0-10); LYMPHOCYTES # (AUTO) 1.6 X 10^3 (1.0-4.0); LYMPHOCYTES % (AUTO) 14 % (12-44); MEAN CORPUSCULAR HEMOGLOBIN 29 PG (25-34); MEAN CORPUSCULAR HGB CONC 35 G/DL (32-36); MEAN CORPUSCULAR VOLUME 85 FL (80-99); MEAN PLATELET VOLUME 8.7 FL (7.4-10.4); MONOCYTES # (AUTO) 1.3 X 10^3 (0.0-1.0); MONOCYTES % (AUTO) 12 % (0-12); NEUTROPHILS # (AUTO) 8.5 X 10^3 (1.8-7.8); NEUTROPHILS % (AUTO) 74 % (42-75); PLATELET COUNT 183 10^3/uL (130-400); RED BLOOD COUNT 4.16 10^6/uL (4.35-5.85); RED CELL DISTRIBUTION WIDTH 18.3 % (10.0-14.5); WHITE BLOOD COUNT 11.4 10^3/uL (4.3-11.0)
[2017-08-10 23:48] LABS: ALANINE AMINOTRANSFERASE 14 U/L (0-55); ALBUMIN 4.1 GM/DL (3.2-4.5); ANION GAP 16 MMOL/L (5-14); ASPARTATE AMINO TRANSFERASE 37 U/L (5-34); BILIRUBIN,TOTAL 0.5 MG/DL (0.1-1.0); BLOOD UREA NITROGEN 9 MG/DL (7-18); BUN/CREATININE RATIO 12; CALCIUM 8.8 MG/DL (8.5-10.1); CARBON DIOXIDE 19 MMOL/L (21-32); CHLORIDE 98 MMOL/L (98-107); CREATININE SERUM 0.74 MG/DL (0.60-1.30); GFR ESTIMATED > 60; GLUCOSE 87 MG/DL (70-105); POTASSIUM 3.9 MMOL/L (3.6-5.0); SODIUM 133 MMOL/L (135-145); TOTAL PROTEIN 7.9 GM/DL (6.4-8.2)
[2017-08-10 23:54] LABS: TROPONIN I < 0.30 NG/ML (<0.30)
[2017-08-11 00:03] LABS: ALCOHOL 330 MG/DL (<10)
[2017-08-11] MEDS ORDERED: LIDOCAINE 1% INJ 20 ML (XYLOCAINE) VIAL INJ ONE (00:15)
[2017-08-11] MEDS ORDERED: cefTRIAXone 1 GM (ROCEPHIN) VIAL IM ONE (00:15)
[2017-08-11 00:25] VITALS: BP 128/80
== END 2017-08-11 00:20 | disposition other institution (70) ==
LOC: EDUNIT# 22:38 → ER 22:40
DX: F19.10 Other psychoactive substance abuse, uncomplicated (principal); F10.10 Alcohol abuse, uncomplicated; N39.0 Urinary tract infection, site not specified; I10 Essential (primary) hypertension; Z87.59 Personal history of other complications of pregnancy, childbirth and the puerperium
CPT/HCPCS: 36415; 80053; 80306; 80320; 81000; 84484; 85025; 87088; 87186; 93005; 96374; 99284

== ENCOUNTER 2017-10-27 01:48 | Observation (INO) | payer SELFPAY ==
[2017-10-27] VITALS (7 sets, daily range): BP systolic 127–145; BP diastolic 80–97
[~2017-10-27] VITALS: Ht 177.8 cm; Wt 76.7 kg
[2017-10-27] MEDS ORDERED: LACTATED RINGERS 1,000 ML IV ONE (01:56)
[2017-10-27] MEDS ORDERED: TETANUS,DIPTH,PERTUSS P/F (BOOSTRIX) 0.5 ML VIAL IM ONE ×2 (02:00→05:12)
[2017-10-27] MEDS ORDERED: WATER (STERILE) FOR INJECTION 20 ML ONE (02:05)
[2017-10-27] MEDS ORDERED: ZIPRASIDONE 20 MG INJ (GEODON) VIAL IM ONE ×2 (02:05→02:15)
--- OUTSIDE RECORDS SUMMARY | 2017-10-27 02:06 | XMS REPORT | CCD ---
Demographics Address [address] [place] [address] Preferred Language Unknown Marital Status Unknown Advent Affiliation Unknown Race White Ethnic Group Not or Author Author SHILOH RICO Organization Unknown Address [address] [facility] [address] [place] [address] Care Team Providers Care Dental Office Receptionist Name Role Phone BALBUENA, HERIBERTO DO Attphys BALBUENA, HERIBERTO DO Prisurg Allergies Unknown or Not Available. Active Medications Unknown or Not Available. Problems Unknown or Not Available. Procedures Procedure Code Procedure Type Date ^CULTURE AEROBIC ID [id number] SNOMED CT 12/19/2016 ^CULTURE URINE IDENTIFICATION 769130371 SNOMED CT 2016 ^UA WITH MICRO [id number] SNOMED CT 12/19/2016 CULTURE URINE [id number] SNOMED CT 12/19/2016 ^CBC W/AUTO DIFF [id number] SNOMED CT 12/19/2016 RAPID DRUG SCREEN [id number] SNOMED CT 12/19/2016 UA ROUTINE C&S IF IND [id number] SNOMED CT 12/19/[id number] 12/19/2016 COMPREHENSIVE METABOLIC PANEL 837111455 SNOMED CT 2016 CBC W/ AUTO DIFF (RFLX MAN DIFF IF IND) [id number] [facility] CT 12/19/2016 Results COMPREHENSIVE METABOLIC PANEL - Collect Date/Time: 12/19/2016 12:00 Test Name Code Test Result Test Units Test Ref Range GLUCOSE 2345-7 157 MG/DL L=70 H=100 SODIUM 2951-2 139 MEQ/L L=135 H=148 POTASSIUM 2823-3 3.7 MEQ/L L=3.5 H=5.3 CHLORIDE 2075-0 102 MEQ/L L=96 H=110 CO2 2028-9 21 MEQ/L L=22 H=29 BUN 3094-0 4 MG/DL L=8 H=22 CREATININE 2160-0 0.6 MG/DL L=0.6 H=1.6 SGOT/AST 1920-8 191 IU/L L=10 H=40 SGPT/ALT 1742-6 55 IU/L L=8 H=54 ALK PHOS 6768-6 116 IU/L L=35 H=115 TOTAL PROTEIN 2885-2 7.8 G/DL L=5.5 H=8.5 ALBUMIN 1751-7 4.0 G/DL L=3.1 H=5.4 TOTAL BILI 1975-2 0.4 MG/DL L=0.0 H=1.5 CALCIUM 94071-6 8.9 MG/DL L=8.2 H=10.6 AGE 36 yrs GFR NonAA 112 GFR AA 136 eGFR >60 N/A eGFR AA* >60 N/A ALCOHOL - Collect Date/Time: 12/19/2016 12:00 Test Name Code Test Result Test Units Test Ref Range ETHANOL 5640-8 419 MG/DL RAPID DRUG SCREEN - Collect Date/Time: 12/19/2016 12:00 Test Name Code Test Result Test Units Test Ref Range Cannabinoids (THC) NON-NEGATIVE N/A NEG: < 50 ng/ml Phencyclidine (PCP) NEGATIVE N/A NEG: < 25 ng/ ml Cocaine NEGATIVE N/A NEG: < 300 ng/ml Methamphetamine NON-NEGATIVE N/A NEG: < 1000 ng/ ml Opiates NEGATIVE N/A NEG: < 300 ng/ml Amphetamine NON-NEGATIVE N/A NEG: < 1000 ng/ml Benzodiazepines NEGATIVE N/A NEG: < 300 ng/ml Tricyclic Antidepres NEGATIVE N/A NEG: < 300 ng/ ml Methadone NEGATIVE N/A NEG: < 300 ng/ml Barbiturates NEGATIVE N/A NEG: < 200 ng/ml Oxycodone NEGATIVE N/A NEG: < 100 ng/ml Propoxyphene (PPX) NEGATIVE N/A NEG: < 300 ng/ ml CBC W/ AUTO DIFF (RFLX MAN DIFF IF IND) - Collect Date/Time: 12/19/2016 12:00 Test Name Code Test Result Test Units Test Ref Range WBC 69234-8 4.7 TH/CMM L=4.5 H=10.8 RBC 789-8 3.46 ML/CMM L=4.20 H=5.40 HGB 718-7 12.5 G/DL L=12.0 H=16.0 HCT 4544-3 36.8 % L=37.0 H=47.0 MCV 106 FL L=81 H=99 MCH 36.1 PG L=27.0 H=33.0 MCHC 34.0 G/DL L=31.0 H=36.0 RDW SD 61 FL L=36 H=50 RDW CV 15.7 % L=0.0 H=14.8 MPV 8.6 FL L=9.3 H=12.5 PLT 777-3 111 TH/CMM L=130 H=440 NRBC# 0.02 TH/CMM L=0.00 H=0.00 NRBC% 0.4 /100WBC L=0.0 H=2.0 %NEUT 53.0 % %LYMP 33.3 % %MONO 10.5 % %EOS 1.3 % %BASO 1.1 % #NEUT 2.51 TH/CMM L=2.10 H=8.20 #LYMP 1.58 TH/CMM L=0.90 H=5.20 #MONO 0.50 TH/CMM L=0.16 H=1.00 #EOS 0.06 TH/CMM L=0.00 H=0.80 #BASO 0.05 TH/CMM L=0.00 H=0.20 MANUAL DIFF NOT IND N/A UA ROUTINE C&S IF IND - Collect Date/Time: 12/19/2016 12:00 Test Name Code Test Result Test Units Test Ref Range COLOR YELLOW N/A NL: YELLOW APPEARANCE SL CLOUDY N/A NL: CLEAR SPEC GRAV 1.010 N/A NL: 1.002 - 1.022 pH 5.5 N/A NL: 5 - 9 PROTEIN 30 N/A NL: NEGATIVE mg/dl GLUCOSE NEGATIVE N/A NL: NEGATIVE mg/dl KETONE NEGATIVE N/A NL: NEGATIVE mg/dl BILIRUBIN NEGATIVE N/A NL: NEGATIVE BLOOD TRACE-INTACT N/A NL: NEGATIVE NITRITE NEGATIVE N/A NL: NEGATIVE LEUK SCREEN NEGATIVE N/A NL: NEGATIVE MICRO INDICATED? SEE BELOW N/A WBC/HPF RARE N/A NL: NEGATIVE RBC/HPF NEGATIVE N/A NL: NEGATIVE CASTS/LPF NEGATIVE N/A NL: NEGATIVE CRYSTALS NEGATIVE N/A NL: NEGATIVE MUCOUS THRDS NEGATIVE N/A NL: NEGATIVE BACTERIA 2++ N/A NL: NEGATIVE EPITH CELLS 1+ SQUAMOUS N/A NL: NEGATIVE TRICHOMONAS NEGATIVE N/A NL: NEGATIVE YEAST NEGATIVE N/A NL: NEGATIVE CULT SET UP? YES N/A Function Status Unknown or Not Available. History of Immunizations Unknown or Not Available. Plan of Treatment Unknown or Not Available. Social History Smoking Status Code Start Date End Date Current every day smoker [id number] Vital Signs Unknown or Not Available. Function Status Unknown or Not Available. Goals Unknown or Not Available. ASSESSMENTS Unknown or Not Available. Health Concerns Section Unknown or Not Available.
[2017-10-27 02:18] LABS: BASOPHILS % (AUTO) 0 % (0-10); EOSINOPHILS # (AUTO) 0.2 10^3/uL (0.0-0.3); EOSINOPHILS % (AUTO) 3 % (0-10); HEMATOCRIT 34 % (35-52); HEMOGLOBIN 11.3 G/DL (11.5-16.0); LYMPHOCYTES # (AUTO) 3.4 X 10^3 (1.0-4.0); LYMPHOCYTES % (AUTO) 47 % (12-44); MEAN CORPUSCULAR HEMOGLOBIN 29 PG (25-34); MEAN CORPUSCULAR HGB CONC 33 G/DL (32-36); MEAN CORPUSCULAR VOLUME 88 FL (80-99); MEAN PLATELET VOLUME 8.3 FL (7.4-10.4); MONOCYTES # (AUTO) 0.6 X 10^3 (0.0-1.0); MONOCYTES % (AUTO) 8 % (0-12); NEUTROPHILS # (AUTO) 2.9 X 10^3 (1.8-7.8); NEUTROPHILS % (AUTO) 41 % (42-75); PLATELET COUNT 301 10^3/uL (130-400); RED BLOOD COUNT 3.89 10^6/uL (4.35-5.85); RED CELL DISTRIBUTION WIDTH 17.5 % (10.0-14.5); WHITE BLOOD COUNT 7.1 10^3/uL (4.3-11.0)
[2017-10-27 02:30] LABS: BILIRUBIN,URINE NEGATIVE (NEGATIVE); CLARITY,URINE CLEAR; COLOR,URINE YELLOW; GLUCOSE, URINE (UA) NEGATIVE (NEGATIVE); KETONES,URINE NEGATIVE (NEGATIVE); LEUKOCYTE ESTERASE ,URINE NEGATIVE (NEGATIVE); NITRITE,URINE NEGATIVE (NEGATIVE); PH,URINE 6.5 (5-9); PROTEIN,URINE NEGATIVE (NEGATIVE); UROBILINOGEN,URINE NORMAL (NORMAL)
[2017-10-27 02:36] LABS: BACTERIA,URINE TRACE /HPF; RBC,URINE 0-2 /HPF
[2017-10-27 02:41] LABS: AMPHETAMINE SCREEN, URINE POSITIVE (NEGATIVE); BARBITURATE SCREEN URINE NEGATIVE (NEGATIVE); BENZODIAZEPINES SCREEN URINE NEGATIVE (NEGATIVE); CANNABINOID SCREEN, URINE NEGATIVE (NEGATIVE); COCAINE SCREEN URINE NEGATIVE (NEGATIVE); METHADONE STAT NEGATIVE (NEGATIVE); METHAMPHETAMINE SCREEN URINE S NEGATIVE (NEGATIVE); OPIATE SCREEN URINE NEGATIVE (NEGATIVE); OXYCODONE STAT NEGATIVE (NEGATIVE); PROPOXYPHENE STAT NEGATIVE (NEGATIVE); TRICYCLIC ANTIDEPRESSANTS SCRE NEGATIVE (NEGATIVE)
[2017-10-27 02:41] LABS: ACETAMINOPHEN < 10 UG/ML (10-30); ALANINE AMINOTRANSFERASE 6 U/L (0-55); ALBUMIN 3.8 GM/DL (3.2-4.5); ALKALINE PHOSPHATASE 84 U/L (40-136); AMYLASE 62 U/L (25-125); BILIRUBIN,TOTAL 0.1 MG/DL (0.1-1.0); BUN/CREATININE RATIO 17; CALCIUM 8.3 MG/DL (8.5-10.1); CARBON DIOXIDE 21 MMOL/L (21-32); CHLORIDE 111 MMOL/L (98-107); CREATININE SERUM 0.65 MG/DL (0.60-1.30); GFR ESTIMATED > 60; GLUCOSE 88 MG/DL (70-105); LIPASE 79 U/L (8-78); MAGNESIUM 1.9 MG/DL (1.8-2.4); POTASSIUM 3.3 MMOL/L (3.6-5.0); SALICYLATE < 5.0 MG/DL (5.0-20.0); SODIUM 146 MMOL/L (135-145); TOTAL PROTEIN 7.3 GM/DL (6.4-8.2)
[2017-10-27 03:00] LABS: TSH (THYROID ANALYZER) 1.04 UIU/ML (0.35-4.94)
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
--- NOTE | 2017-10-27 06:37 | Diagnostic Imaging Report ---
PROCEDURE: CT abdomen and pelvis without contrast. TECHNIQUE: Multiple contiguous axial images were obtained through the abdomen and pelvis without the use of intravenous contrast. INDICATION: Laceration. FINDINGS: The lung bases are clear. The heart size is normal. There is no pleural or pericardial fluid. The liver is normal in size without focal lesions. The gallbladder is unremarkable. There is no biliary ductal dilatation. Spleen is normal. The pancreas and adrenal glands are unremarkable. The kidneys are normal. The aorta is nonaneurysmal. The bladder is normal. The bowel gas pattern is nonspecific. There is no free air. There is no ascites. There is a small amount of inflammatory stranding in the periumbilical region corresponding to the patient's history of a laceration. There does appear to be a small amount of hemorrhage within the left rectus abdominis muscle contained within the sheath. There is no definitive hemorrhage into the peritoneal cavity. There is no pathologically enlarged adenopathy in the abdomen or pelvis. IMPRESSION: Small amount of hemorrhage within the left rectus abdominis muscle contained within the sheath. No definite hemorrhage into the peritoneal cavity. No other acute abnormality in the abdomen or pelvis. Dictated by: Dictated on workstation # [id number]
[2017-10-27] MEDS ORDERED: 1/2 NS IV SOLUTION 1,000 ML IV PRN (06:49)
[2017-10-27] MEDS ORDERED: SENNA W/DOCUSATE (SENOKOT S) TABLET PO PRN (07:00)
[2017-10-27] MEDS ORDERED: LORazepam INJ 2 MG/ML (ATIVAN) VIAL IM/IV PRN (07:00)
[2017-10-27] MEDS ORDERED: ONDANSETRON 4 MG/2 ML (SDV) Z0FRAN IV PRN (07:00)
[2017-10-27] MEDS ORDERED: ONDANSETRON 4 MG (ZOFRAN) ORAL DISSOLVE TAB SL PRN (07:00)
[2017-10-27] MEDS ORDERED: D5 1/2 NS 1000 ML IV SOLUTION 1,000 ML IV PRN (07:00)
[2017-10-27] MEDS ORDERED: LORazepam 1 MG (ATIVAN) TAB PO PRN (07:00)
[2017-10-27] MEDS ORDERED: ANTACID SUSP 30 ML UDC (MYLANTA) PO PRN (07:00)
[2017-10-27] MEDS: TRIM/SULFAMETH 160/800 (SEPTRA DS) TAB PO SCH ×2 (08:10→17:00)
[2017-10-27] MEDS: THIAMINE INJECTION 100 MG, FOLIC ACID INJECTION 1 MG, MAGNESIUM SULFATE 2 GM, VITAMIN M... IV SCH ×10 (08:11→14:42)
[2017-10-27] MEDS: D5 1/2 NS W/KCL 20 MEQ/L 1,000 ML IV SCH ×3 (08:32→20:23)
[2017-10-27] MEDS ORDERED: NAPR220T66 PO ×2 (09:46)
[2017-10-27] MEDS ORDERED: ACET-2267 PO (09:46)
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
[2017-10-27] MEDS ORDERED: LACTATED RINGERS 1,000 ML IV PRN ×2 (10:25)
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
[2017-10-27 12:19] LABS: BASOPHILS % (AUTO) 1 % (0-10); EOSINOPHILS # (AUTO) 0.2 10^3/uL (0.0-0.3); EOSINOPHILS % (AUTO) 3 % (0-10); HEMATOCRIT 32 % (35-52); HEMOGLOBIN 10.6 G/DL (11.5-16.0); LYMPHOCYTES # (AUTO) 2.1 X 10^3 (1.0-4.0); LYMPHOCYTES % (AUTO) 39 % (12-44); MEAN CORPUSCULAR HEMOGLOBIN 29 PG (25-34); MEAN CORPUSCULAR HGB CONC 33 G/DL (32-36); MEAN CORPUSCULAR VOLUME 88 FL (80-99); MEAN PLATELET VOLUME 8.3 FL (7.4-10.4); MONOCYTES # (AUTO) 0.5 X 10^3 (0.0-1.0); MONOCYTES % (AUTO) 9 % (0-12); NEUTROPHILS # (AUTO) 2.6 X 10^3 (1.8-7.8); NEUTROPHILS % (AUTO) 48 % (42-75); PLATELET COUNT 274 10^3/uL (130-400); RED BLOOD COUNT 3.63 10^6/uL (4.35-5.85); RED CELL DISTRIBUTION WIDTH 17.6 % (10.0-14.5); WHITE BLOOD COUNT 5.4 10^3/uL (4.3-11.0)
[2017-10-27] MEDS ORDERED: ceFAZolin INJECTION 1,000 MG in NS (IVPB) 100 ML IV ONE (12:30)
[2017-10-27] MEDS: LORazepam INJ 2 MG/ML (ATIVAN) VIAL IV PRN ×2 (12:33→19:45)
[2017-10-27 12:39] LABS: ALANINE AMINOTRANSFERASE 6 U/L (0-55); ALBUMIN 3.3 GM/DL (3.2-4.5); ALKALINE PHOSPHATASE 75 U/L (40-136); BILIRUBIN,TOTAL 0.2 MG/DL (0.1-1.0); BUN/CREATININE RATIO 15; CALCIUM 7.7 MG/DL (8.5-10.1); CARBON DIOXIDE 23 MMOL/L (21-32); CHLORIDE 112 MMOL/L (98-107); CREATININE SERUM 0.55 MG/DL (0.60-1.30); GFR ESTIMATED > 60; GLUCOSE 91 MG/DL (70-105); POTASSIUM 3.7 MMOL/L (3.6-5.0); SODIUM 145 MMOL/L (135-145); TOTAL PROTEIN 6.3 GM/DL (6.4-8.2)
[2017-10-27] MEDS ORDERED: proPOfol 200 MG/20 ML (DIPRIVAN) VIAL IV ONE (14:18)
[2017-10-27] MEDS ORDERED: fentaNYL INJECTION 100 MCG/2 ML AMP ONE (14:18)
[2017-10-27] MEDS ORDERED: SEVOFLURANE (ULTANE) 15 ML INHAL SOLN ONE ×3 (14:18→17:10)
[2017-10-27] MEDS ORDERED: MIDAZOLAM 2 MG/2 ML (VERSED) VIAL ONE (14:18)
[2017-10-27] MEDS ORDERED: DEXAMETHASONE 10 MG/ML (DECADRON) 1 ML VIAL ONE (14:18)
[2017-10-27] MEDS ORDERED: ONDANSETRON 4 MG/2 ML (SDV) Z0FRAN ONE (14:18)
[2017-10-27] MEDS ORDERED: LIDOCAINE PF 2% 5 ML (XYLOCAINE) VIAL ONE (14:18)
[2017-10-27] MEDS: NICOTINE 14 MG (NICODERM) PATCH TD SCH (14:37)
[2017-10-27] MEDS ORDERED: BUPIVACAINE 0.5% 30 ML (SENSORCAINE) VIAL ONE (14:44)
[2017-10-27] MEDS ORDERED: LIDOCAINE 1% INJ 20 ML (XYLOCAINE) VIAL ONE (14:44)
[2017-10-27] MEDS ORDERED: INFLUENZA TRIvalent 2017-2018 0.5 ML/45 MCG SYR IM ONE (15:30)
[2017-10-27] MEDS ORDERED: ceFAZolin 1,000 MG (ANCEF) VIAL ONE (16:07)
[2017-10-27] MEDS ORDERED: ONDANSETRON 4 MG/2 ML (SDV) Z0FRAN IVP PRN (16:45)
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
[2017-10-27] MEDS ORDERED: ROCURONIUM 10 MG/ML 5 ML SYRINGE IV ONE (17:11)
[2017-10-27] MEDS ORDERED: LABETALOL HCL 20 MG/4 ML VIAL ONE (17:19)
[2017-10-27] MEDS: morphine INJ 10 MG/ML 1ML (SYR OR VIAL) IVP PRN ×2 (17:38→17:44)
[2017-10-27] MEDS: morphine INJ 4 MG/ML 1 ML (VIAL/SYRINGE) IVP PRN (22:23)
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
[2017-10-28 02:00] VITALS: BP 154/102
[2017-10-28] MEDS: morphine INJ 4 MG/ML 1 ML (VIAL/SYRINGE) IVP PRN (02:02)
[2017-10-28] MEDS: LORazepam INJ 2 MG/ML (ATIVAN) VIAL IV PRN ×2 (02:46→07:48)
[2017-10-28] MEDS ORDERED: HYDROcodone/APAP 5 MG/325 MG (LORTAB) TAB ONE (03:45)
[2017-10-28] MEDS: oxyCODONE/APAP 5/325MG (PERCOCET 5) TABLET PO PRN ×2 (04:04→10:28)
[2017-10-28] MEDS: D5 1/2 NS W/KCL 20 MEQ/L 1,000 ML IV SCH ×2 (04:05→09:06)
[2017-10-28] MEDS: TRIM/SULFAMETH 160/800 (SEPTRA DS) TAB PO SCH (07:47)
[2017-10-28] MEDS: NICOTINE 14 MG (NICODERM) PATCH TD SCH (07:48)
[2017-10-28 08:00] VITALS: BP 120/83
[2017-10-28] MEDS ORDERED: MULT-324 PO ×2 (08:00)
[2017-10-28] MEDS ORDERED: THIAMINE INJECTION 100 MG, FOLIC ACID INJECTION 1 MG, MAGNESIUM SULFATE 2 GM, VITAMIN M... IV SCH ×5 (09:00)
[2017-10-28] MEDS ORDERED: PATCH REMOVAL TP SCH (09:00)
[2017-10-28] MEDS ORDERED: SULF1TAB35 PO ×2 (10:51)
--- NOTE | 2017-10-28 14:33 | Anesthesia-General Post-Op ---
General Patient Condition Mental Status/LOC: Same as Preop Cardiovascular: Satisfactory Nausea/Vomiting: Absent Respiratory: Satisfactory Pain: Controlled Complications: Absent Post Op Complications Complications None Follow Up Care/Instructions Patient Instructions None needed. Anesthesia/Patient Condition Patient Condition Patient is doing well, no complaints, stable vital signs, no apparent adverse anesthesia problems. No complications reported per nursing. MILVIA MCDOWELL CRNA Oct 28, 2017 14:33
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
[2017-11-03] MEDS ORDERED: MULT-35 PO (09:56)
== END 2017-10-28 08:01 | disposition home or self-care (01) ==
LOC: EDUNIT# 01:49 → ER 01:50 → UNDOADMOB 04:40 → ICU 04:40 → UNDODISOB 10-28 10:40
PROVIDERS: ADMIT Internal Medicine; ATTEND Internal Medicine
DX: S31.635A Puncture wound without foreign body of abdominal wall, periumbilic region with penetration into peritoneal cavity, initial encounter (principal); F10.129 Alcohol abuse with intoxication, unspecified; Y90.8 Blood alcohol level of 240 mg/100 ml or more; F15.90 Other stimulant use, unspecified, uncomplicated; I10 Essential (primary) hypertension; X78.1XXA Intentional self-harm by knife, initial encounter; Z79.899 Other long term (current) drug therapy; Z23 Encounter for immunization
CPT/HCPCS: 36415; 74176; 80053; 80306; 80320; 80329; 81000; 82150; 83690; 83735; 84443; 84703; 85025; 90471; 90715; 93005; 96360; 96372

== ENCOUNTER 2017-10-29 13:22 | Emergency (ER) | payer SELFPAY ==
[~2017-10-29] VITALS: Ht 175.3 cm; Wt 72.6 kg
[~2017-10-29 13:22] MED LIST: ACET-2267 PO; MULT-324 PO; NAPR220T66 PO; SULF1TAB35 PO
[2017-10-29] MEDS ORDERED: ONDANSETRON 4 MG/2 ML (SDV) Z0FRAN ONE (14:05)
[2017-10-29] MEDS ORDERED: ONDANSETRON 4 MG/2 ML (SDV) Z0FRAN IVP ONE (14:15)
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
[2017-10-29 14:49] LABS: BASOPHILS % (AUTO) 0 % (0-10); EOSINOPHILS # (AUTO) 0.1 10^3/uL (0.0-0.3); EOSINOPHILS % (AUTO) 1 % (0-10); HEMATOCRIT 34 % (35-52); HEMOGLOBIN 11.1 G/DL (11.5-16.0); LYMPHOCYTES # (AUTO) 2.8 X 10^3 (1.0-4.0); LYMPHOCYTES % (AUTO) 28 % (12-44); MEAN CORPUSCULAR HEMOGLOBIN 29 PG (25-34); MEAN CORPUSCULAR HGB CONC 33 G/DL (32-36); MEAN CORPUSCULAR VOLUME 89 FL (80-99); MEAN PLATELET VOLUME 8.4 FL (7.4-10.4); MONOCYTES % (AUTO) 10 % (0-12); NEUTROPHILS % (AUTO) 61 % (42-75); PLATELET COUNT 324 10^3/uL (130-400); RED BLOOD COUNT 3.85 10^6/uL (4.35-5.85); RED CELL DISTRIBUTION WIDTH 17.3 % (10.0-14.5)
[2017-10-29] MEDS ORDERED: NS 250 ML (IVPB) BAG IV ONE (15:00)
[2017-10-29] MEDS ORDERED: DIATRIZOATE MEGLUM/SODIUM 37% 120 ML (GASTROGRAFIN) PO ONE (15:00)
[2017-10-29] MEDS ORDERED: IOHEXOL 350 MG/ML 100 ML (OMNIPAQUE 350) VIAL IV ONE (15:00)
[2017-10-29] MEDS ORDERED: CATHETER FLUSH 10 ML SYR IV PRN (15:00)
[2017-10-29 15:07] LABS: AMPHETAMINE SCREEN, URINE NEGATIVE (NEGATIVE); BARBITURATE SCREEN URINE NEGATIVE (NEGATIVE); BENZODIAZEPINES SCREEN URINE NEGATIVE (NEGATIVE); CANNABINOID SCREEN, URINE NEGATIVE (NEGATIVE); COCAINE SCREEN URINE NEGATIVE (NEGATIVE); METHADONE STAT NEGATIVE (NEGATIVE); METHAMPHETAMINE SCREEN URINE S NEGATIVE (NEGATIVE); OPIATE SCREEN URINE NEGATIVE (NEGATIVE); OXYCODONE STAT NEGATIVE (NEGATIVE); PROPOXYPHENE STAT NEGATIVE (NEGATIVE); TRICYCLIC ANTIDEPRESSANTS SCRE NEGATIVE (NEGATIVE)
[2017-10-29 15:08] LABS: ALANINE AMINOTRANSFERASE 7 U/L (0-55); ALBUMIN 3.7 GM/DL (3.2-4.5); ALKALINE PHOSPHATASE 76 U/L (40-136); BILIRUBIN,TOTAL 0.2 MG/DL (0.1-1.0); BUN/CREATININE RATIO 14; CALCIUM 8.3 MG/DL (8.5-10.1); CARBON DIOXIDE 29 MMOL/L (21-32); CHLORIDE 105 MMOL/L (98-107); CREATININE SERUM 0.58 MG/DL (0.60-1.30); GFR ESTIMATED > 60; GLUCOSE 93 MG/DL (70-105); POTASSIUM 3.3 MMOL/L (3.6-5.0); SODIUM 141 MMOL/L (135-145); TOTAL PROTEIN 7.2 GM/DL (6.4-8.2)
[2017-10-29 15:50] VITALS: BP 133/88
--- NOTE | 2017-10-29 16:04 | Diagnostic Imaging Report ---
PROCEDURE: CT abdomen and pelvis with contrast. TECHNIQUE: Multiple contiguous axial images were obtained through the abdomen and pelvis after administration of intravenous contrast. INDICATION: Abdominal pain FINDINGS: The previous CT abdomen/pelvis exam of 10/27/2017 failed to show any sign of an acute abnormality in the abdomen or pelvis. There was a small amount of hemorrhage within the left rectus abdominis muscle. Reportedly, in the interval since the prior exam, the patient has undergone exploratory laparoscopy procedure. There is a small amount of free air present but most likely this is related to the interval surgical procedure. There is no mass or abscess identified and there is no significant free fluid collection. The appendix was visualized and is not abnormally thickened. The liver, spleen, pancreas, adrenals, kidneys, gallbladder, aorta and inferior vena cava show no sign of an acute abnormality. The stomach is not well-distended and consequently difficult to assess. The urinary bladder and uterus are grossly unremarkable. The bone windows show no sign of a fracture or of a destructive lesion. The lung bases are generally clear. IMPRESSION: 1. There is a small postoperative pneumoperitoneum. There is no acute abnormality of the abdomen or pelvis noted otherwise. 2. These results were discussed with Dr. Farias in the ER. Dictated by: Dictated on workstation # [id number]
[2017-11-01] MEDS ORDERED: DICY10CA12 PO (10:45)
[2017-11-01] MEDS ORDERED: SULF1TAB35 PO (10:45)
[2017-11-03] MEDS ORDERED: MULT-35 PO (09:56)
--- NOTE | 2017-11-03 11:31 | Physician Query-Final Dx ---
GÉNESIS WAYNE 11/03/17 1131: Clinic Account Progress/Dx Physician Query: Please give diagnosis Date of Service Oct 29, 2017 at 13:23 Progress Note: Génesis [phone] MARK STEVENS MD 11/06/17 1255: Clinic Account Progress/Dx DIAGNOSIS: Diagnosis Alcohol poisoning. 2.chronic alcoholism GÉNESIS WAYNE Nov 03, 2017 11:31 MARK STEVENS MD Nov 06, 2017 12:55
== END 2017-10-29 15:50 | disposition left against medical advice (07) ==
LOC: EDUNIT# 13:22 → ER 13:23
DX: R10.84 Generalized abdominal pain (principal); F10.229 Alcohol dependence with intoxication, unspecified; I10 Essential (primary) hypertension; F12.90 Cannabis use, unspecified, uncomplicated; F17.210 Nicotine dependence, cigarettes, uncomplicated; Z87.59 Personal history of other complications of pregnancy, childbirth and the puerperium; Z91.5 Personal history of self-harm; Z98.51 Tubal ligation status; Z98.890 Other specified postprocedural states; Z88.6 Allergy status to analgesic agent
CPT/HCPCS: 36415; 74177; 80053; 80306; 80320; 85025; 96374

== ENCOUNTER 2017-10-31 08:51 | Observation (INO) | payer SELFPAY ==
[~2017-10-31] VITALS: Ht 175.3 cm; Wt 79.4 kg
[2017-10-31] MEDS ORDERED: LACTATED RINGERS 1,000 ML IV ONE (08:52)
[2017-10-31] MEDS ORDERED: NS 100 ML (IVPB) BAG IV ONE (09:00)
[2017-10-31] MEDS ORDERED: IOHEXOL 350 MG/ML 100 ML (OMNIPAQUE 350) VIAL IV ONE (09:00)
[2017-10-31 09:02] LABS: BASOPHILS # (AUTO) 0.1 10^3/uL (0.0-0.1); BASOPHILS % (AUTO) 1 % (0-10); EOSINOPHILS # (AUTO) 0.2 10^3/uL (0.0-0.3); EOSINOPHILS % (AUTO) 3 % (0-10); HEMATOCRIT 33 % (35-52); HEMOGLOBIN 10.8 G/DL (11.5-16.0); LYMPHOCYTES # (AUTO) 2.7 X 10^3 (1.0-4.0); LYMPHOCYTES % (AUTO) 38 % (12-44); MEAN CORPUSCULAR HEMOGLOBIN 29 PG (25-34); MEAN CORPUSCULAR HGB CONC 33 G/DL (32-36); MEAN CORPUSCULAR VOLUME 87 FL (80-99); MEAN PLATELET VOLUME 7.9 FL (7.4-10.4); MONOCYTES # (AUTO) 0.9 X 10^3 (0.0-1.0); MONOCYTES % (AUTO) 13 % (0-12); NEUTROPHILS # (AUTO) 3.2 X 10^3 (1.8-7.8); NEUTROPHILS % (AUTO) 46 % (42-75); PLATELET COUNT 321 10^3/uL (130-400); RED BLOOD COUNT 3.74 10^6/uL (4.35-5.85); RED CELL DISTRIBUTION WIDTH 17.2 % (10.0-14.5)
[2017-10-31 09:12] LABS: PROTHROMBIN TIME PATIENT 12.9 SEC (12.2-14.7)
[2017-10-31 09:21] LABS: ALANINE AMINOTRANSFERASE 7 U/L (0-55); ALBUMIN 3.4 GM/DL (3.2-4.5); ALKALINE PHOSPHATASE 79 U/L (40-136); AMYLASE 48 U/L (25-125); BILIRUBIN,TOTAL 0.2 MG/DL (0.1-1.0); BUN/CREATININE RATIO 17; CALCIUM 7.6 MG/DL (8.5-10.1); CARBON DIOXIDE 25 MMOL/L (21-32); CHLORIDE 107 MMOL/L (98-107); CREATININE SERUM 0.58 MG/DL (0.60-1.30); GFR ESTIMATED > 60; GLUCOSE 103 MG/DL (70-105); LIPASE 51 U/L (8-78); POTASSIUM 3.6 MMOL/L (3.6-5.0); SODIUM 143 MMOL/L (135-145); TOTAL PROTEIN 6.4 GM/DL (6.4-8.2)
[2017-10-31 09:28] LABS: ACETAMINOPHEN < 10 UG/ML (10-30)
[2017-10-31 09:30] LABS: BILIRUBIN,URINE NEGATIVE (NEGATIVE); CLARITY,URINE SLIGHTLY CLOUDY; COLOR,URINE YELLOW; GLUCOSE, URINE (UA) NEGATIVE (NEGATIVE); KETONES,URINE NEGATIVE (NEGATIVE); LEUKOCYTE ESTERASE ,URINE NEGATIVE (NEGATIVE); NITRITE,URINE NEGATIVE (NEGATIVE); PH,URINE 6.5 (5-9); PROTEIN,URINE NEGATIVE (NEGATIVE); UROBILINOGEN,URINE NORMAL (NORMAL)
[2017-10-31 09:40] LABS: BACTERIA,URINE TRACE /HPF
[2017-10-31 09:44] LABS: AMPHETAMINE SCREEN, URINE NEGATIVE (NEGATIVE); BARBITURATE SCREEN URINE NEGATIVE (NEGATIVE); BENZODIAZEPINES SCREEN URINE NEGATIVE (NEGATIVE); CANNABINOID SCREEN, URINE NEGATIVE (NEGATIVE); COCAINE SCREEN URINE NEGATIVE (NEGATIVE); METHADONE STAT NEGATIVE (NEGATIVE); METHAMPHETAMINE SCREEN URINE S NEGATIVE (NEGATIVE); OPIATE SCREEN URINE NEGATIVE (NEGATIVE); OXYCODONE STAT NEGATIVE (NEGATIVE); PROPOXYPHENE STAT NEGATIVE (NEGATIVE); TRICYCLIC ANTIDEPRESSANTS SCRE NEGATIVE (NEGATIVE)
--- NOTE | 2017-10-31 09:48 | Diagnostic Imaging Report ---
PROCEDURE: CT abdomen and pelvis with contrast. TECHNIQUE: Multiple contiguous axial images were obtained through the abdomen and pelvis after administration of intravenous contrast. INDICATION: Abdominal pain and nausea. Comparison is made with prior examination from 10/29/17. FINDINGS: The heart size is normal. The lung bases are clear. There is a small amount of residual pneumoperitoneum presumably related to recent surgery. The liver is normal in size without focal lesions. The gallbladder is unremarkable. There is no biliary ductal dilatation. The spleen is normal. The pancreas, adrenal glands, and kidneys are unremarkable. The aorta is nonaneurysmal. The bowel gas pattern is nonspecific. Bladder is normal. The uterus is normal. There is no pelvic mass or adenopathy. There is no ascites. There is no evidence of abscess. Osseous structures are unremarkable. IMPRESSION: Persistent small amount of postoperative pneumoperitoneum. This is relatively unchanged when compared to prior examination. No other acute abnormality in the abdomen or pelvis. Dictated by: Dictated on workstation # [id number]
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
--- NOTE | 2017-10-31 09:59 | Diagnostic Imaging Report ---
INDICATION: Abdominal pain. FINDINGS: The heart size is normal. The lungs are clear. Bowel gas pattern is nonspecific. There is free air beneath both hemidiaphragms; this is presumably due to recent operative procedure. There is some contrast material within the colon. IMPRESSION: Free air beneath the hemidiaphragm is presumably due to recent operative procedure Nonspecific bowel gas pattern. No acute cardiopulmonary abnormality Dictated by: Dictated on workstation # [id number]
[2017-10-31] MEDS ORDERED: PANTOPRAZOLE 40 MG/10 ML (PROTONIX) VIAL IV ONE (10:00)
[2017-10-31] MEDS ORDERED: HYOSCYAMINE 0.125 MG (LEVSIN) TAB PO ONE (10:15)
[2017-10-31] MEDS ORDERED: KETOROLAC 30 MG/ML VIAL IVP ONE (10:45)
--- NOTE | 2017-10-31 10:48 | History & Physical-Hospitalist ---
HPI History of Present Illness: HPI/Chief Complaint Pt is a 37yoCF with PMH of alcohol abuse, meth abuse, and recent self inflicted abdominal injury known to me from admission earlier this week who presented to the ER with CC of abdominal pain. She states that she has had abdominal pain since discharge. She believes it to be worse in epigastric region. She has had some nausea and vomited once. She was seen in the ER 2 days ago as well for similar symptoms but left AMA before she could complete work up for abd pain. She is very intoxicated and history is very limited due to this. She states she has drank a fifth today because she "likes to drink." She is belligerent during exam and has frequent outbursts of crying. I am unable to obtain much other history due to this. Her only concern at the end of my exam was when she would be able to eat. Source: patient Exam Limitations: intoxication Date Seen 10/31/17 Time Seen by Provider: 10:20 Attending Physician Annabel Elizabeth PCP No,Local Physician Referring Physician Date of Admission Home Medications & Allergies Home Medications Reviewed patient Home Medication Reconciliation Form Allergies Allergies Coded Allergies aspirin (Verified Allergy, Unknown, 10/29/17) Past Zyhsvsx-Ssbgsj-Ttpeby Hx Patient Social History Marrital Status: single Employed/Student: unemployed Alcohol Use: Regular Use Number of Drinks Today: FF Alcohol Beverage of Choice: Beer, Vodka Recreational Drug Use: No Drug of Choice: h/o MARIJUANA and meth Smoking Status: Current Everyday Smoker Type Used: Cigarettes 2nd Hand Smoke Exposure: Yes Recent Foreign Travel: No Contact w/other who traveled: No Recent Hopitalizations: No Recent Infectious Disease Expo: No Immunizations Up To Date Tetanus Booster (TDap): Less than 5yrs Pediatric: Yes Seasonal Allergies Seasonal Allergies: No Surgeries Yes ( X 2; LEFT SHOULDER ROTATOR CUFF REPAIR; LEFT KNEE ACL REPAIR, explorative laparoscopy) Abdominal, Section, Orthopedic, Tubal Ligation Respiratory No Cardiovascular Yes Hypertension Neurological 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 Genitourinary No Gastrointestinal No Musculoskeletal No Endocrine History of Endocrine Disorders: No HEENT History of HEENT Disorders: Yes (LEFT INFRAORBITAL FRACTURE JULY 2017) Cancer No Psychosocial History of Psychiatric Problem: Yes (Od ON TYLENOL PM multiple x ; POLYSUB ABUSE, self inflicted injuries, alcohol abuse) Behavioral Health Disorders: Suicide Attempts Integumentary History of Skin or Integumenta: No Blood Transfusions History of Blood Disorders: No Adverse Reaction to a Blood Tr: No Family Medical History Significant Family History: No Pertinent Family Hx Review of Systems ROS-Unable to Obtain: limited due to intoxication Constitutional: No chills, No fever EENTM: no symptoms reported Respiratory: cough, No phlegm, No short of breath Cardiovascular: No chest pain, No edema, No palpitations Gastrointestinal: abdominal pain, No constipation, No diarrhea, No hematemesis , No heartburn, nausea, vomiting Genitourinary: no symptoms reported Musculoskeletal: no symptoms reported Skin: no symptoms reported Psychiatric/Neurological: Depressed Physical Exam Physical Exam Vital Signs Vital Signs - First Documented 10/31/17 09:01 Temp 97.2 Pulse 103 Resp 18 B/P (MAP) 130/96 (107) Pulse Ox 96 Capillary Refill : Less Than 3 Seconds General Appearance: Other (belligerent with tearful outbursts, disheveled) HEENT: PERRL/EOMI, Moist Mucous Membranes, No Scleral Icterus (L), No Scleral Icterus (R) Neck: Supple, No JVD, No Thyromegaly Respiratory: Lungs Clear, No Accessory Muscle Use, No Respiratory Distress Cardiovascular: Regular Rate, Rhythm, No Murmur, Normal Peripheral Pulses Gastrointestinal: Normal Bowel Sounds, Soft, No Distended, No Guarding, Tenderness (LLQ and epigastric) Extremity: Normal Capillary Refill, No Calf Tenderness, No Pedal Edema Neurologic/Psychiatric: Alert, Other (alert, awake, speeching in full sentences , oriented x3, belligerent) Skin: Other (wounds on abdomen- 2 surgical scars well healing, no erythema or drainage- dermabond still visisble, central wound with scabbing- minimal erythema, no drainage) Results Results/Procedures Lab Laboratory Tests 10/31/17 08:50 Radiology Date of Exam: 10/31/17 CT ABDOMEN/PELVIS W PROCEDURE: CT abdomen and pelvis with contrast. TECHNIQUE: Multiple contiguous axial images were obtained through the abdomen and pelvis after administration of intravenous contrast. INDICATION: Abdominal pain and nausea. Comparison is made with prior examination from 10/29/17. FINDINGS: The heart size is normal. The lung bases are clear. There is a small amount of residual pneumoperitoneum presumably related to recent surgery. The liver is normal in size without focal lesions. The gallbladder is unremarkable. There is no biliary ductal dilatation. The spleen is normal. The pancreas, adrenal glands, and kidneys are unremarkable. The aorta is nonaneurysmal. The bowel gas pattern is nonspecific. Bladder is normal. The uterus is normal. There is no pelvic mass or adenopathy. There is no ascites. There is no evidence of abscess. Osseous structures are unremarkable. IMPRESSION: Persistent small amount of postoperative pneumoperitoneum. This is relatively unchanged when compared to prior examination. Assessment/Plan Admission Diagnosis Alcohol intoxication Admission Status: Observation Diagnosis/Problems Diagnosis/Problems (1) Alcohol intoxication Status: Acute Assessment & Plan: Severe alcohol intoxication Alcohol level 472 Will admit for monitoring Mentating relative well but mood labile Will start banana bag Will likely not withdrawal here but will place on [facility] protocol in preparation for potential withdrawal Qualifiers: Qualified Codes: F10.920 - Alcohol use, unspecified with intoxication, uncomplicated (2) Abdominal pain Status: Acute Assessment & Plan: CT shows unchanged pneumoperitoneum consistent with recent surgery Surgery consulted, appreciate recs Will attempt to avoid narcotics as able due to history of polysubstance abuse Will provide Bentyl, Tylenol, and Ibuprofen for pain Qualifiers: Qualified Codes: R10.10 - Upper abdominal pain, unspecified (3) Normocytic anemia Status: Chronic Assessment & Plan: Will start on multivitamin Likely multifactorial due to menses and malnutrition from alcohol intake trend (4) Polysubstance abuse Assessment & Plan: UDS negative today but positive for amphetamines on / Denies use since (5) Prophylactic measure Assessment & Plan: Banana bag Lovenox Regular Diet ANNABEL ELIZABETH MD Oct 31, 2017 10:48 am
[2017-10-31] MEDS ORDERED: IBUPROFEN 600 MG (MOTRIN) TAB PO PRN (11:00)
[2017-10-31] MEDS ORDERED: 1/2 NS IV SOLUTION 1,000 ML IV PRN (11:46)
[2017-10-31] MEDS ORDERED: THIAMINE INJECTION 100 MG, FOLIC ACID INJECTION 1 MG, MAGNESIUM SULFATE 2 GM, VITAMIN M... IV SCH ×5 (11:46)
[2017-10-31] MEDS: NICOTINE 21 MG (NICODERM) PATCH TD SCH (11:57)
[2017-10-31] MEDS: DICYCLOMINE 10 MG (BENTYL) CAP PO SCH ×3 (11:58→21:25)
[2017-10-31] MEDS: TRIM/SULFAMETH 160/800 (SEPTRA DS) TAB PO SCH ×2 (11:58→16:48)
[2017-10-31] MEDS ORDERED: ONDANSETRON 4 MG/2 ML (SDV) Z0FRAN IV PRN (12:00)
[2017-10-31] MEDS ORDERED: ONDANSETRON 4 MG (ZOFRAN) ORAL DISSOLVE TAB SL PRN (12:00)
[2017-10-31] MEDS ORDERED: ANTACID SUSP 30 ML UDC (MYLANTA) PO PRN (12:00)
[2017-10-31] MEDS ORDERED: D5 1/2 NS 1000 ML IV SOLUTION 1,000 ML IV PRN (12:00)
[2017-10-31] MEDS ORDERED: SENNA W/DOCUSATE (SENOKOT S) TABLET PO PRN (12:00)
[2017-10-31] MEDS ORDERED: LORazepam INJ 2 MG/ML (ATIVAN) VIAL IV PRN (12:00)
[2017-10-31] MEDS ORDERED: LORazepam INJ 2 MG/ML (ATIVAN) VIAL IM/IV PRN (12:00)
[2017-10-31] MEDS: D5 1/2 NS W/KCL 20 MEQ/L 1,000 ML IV SCH ×2 (12:42→19:15)
[2017-10-31] MEDS: THIAMINE INJECTION 100 MG, FOLIC ACID INJECTION 1 MG, MAGNESIUM SULFATE 2 GM, VITAMIN M... IV SCH ×5 (12:52)
[2017-10-31] MEDS: HYOSCYAMINE 0.125 MG (LEVSIN) TAB SL PRN (15:06)
[2017-10-31 16:00] VITALS: BP 116/64
[2017-10-31] MEDS: LORazepam 1 MG (ATIVAN) TAB PO PRN ×4 (16:48→22:51)
[2017-10-31 21:40] VITALS: BP 129/91
[2017-11-01 00:45] VITALS: BP 137/83
[2017-11-01] MEDS: ACETAMINOPHEN 500 MG TAB (TYLENOL) PO PRN ×3 (01:15→17:02)
[2017-11-01] MEDS: D5 1/2 NS W/KCL 20 MEQ/L 1,000 ML IV SCH ×3 (01:59→14:42)
[2017-11-01 03:53] VITALS: BP 161/93
[2017-11-01] MEDS: LORazepam 1 MG (ATIVAN) TAB PO PRN ×7 (03:57→21:55)
[2017-11-01] MEDS: DICYCLOMINE 10 MG (BENTYL) CAP PO SCH ×4 (04:49→19:55)
[2017-11-01] MEDS: TRIM/SULFAMETH 160/800 (SEPTRA DS) TAB PO SCH ×2 (04:49→17:01)
[2017-11-01 05:59] LABS: BASOPHILS % (AUTO) 0 % (0-10); EOSINOPHILS # (AUTO) 0.1 10^3/uL (0.0-0.3); EOSINOPHILS % (AUTO) 1 % (0-10); HEMATOCRIT 30 % (35-52); LYMPHOCYTES # (AUTO) 0.8 X 10^3 (1.0-4.0); LYMPHOCYTES % (AUTO) 14 % (12-44); MEAN CORPUSCULAR HEMOGLOBIN 29 PG (25-34); MEAN CORPUSCULAR HGB CONC 33 G/DL (32-36); MEAN CORPUSCULAR VOLUME 86 FL (80-99); MEAN PLATELET VOLUME 8.3 FL (7.4-10.4); MONOCYTES # (AUTO) 0.9 X 10^3 (0.0-1.0); MONOCYTES % (AUTO) 17 % (0-12); NEUTROPHILS # (AUTO) 3.6 X 10^3 (1.8-7.8); NEUTROPHILS % (AUTO) 68 % (42-75); PLATELET COUNT 309 10^3/uL (130-400); RED BLOOD COUNT 3.49 10^6/uL (4.35-5.85); RED CELL DISTRIBUTION WIDTH 16.5 % (10.0-14.5); WHITE BLOOD COUNT 5.4 10^3/uL (4.3-11.0)
[2017-11-01 06:26] LABS: ALANINE AMINOTRANSFERASE 9 U/L (0-55); ALBUMIN 3.3 GM/DL (3.2-4.5); ALKALINE PHOSPHATASE 79 U/L (40-136); BILIRUBIN,TOTAL 0.3 MG/DL (0.1-1.0); BUN/CREATININE RATIO 11; CALCIUM 8.4 MG/DL (8.5-10.1); CARBON DIOXIDE 25 MMOL/L (21-32); CHLORIDE 103 MMOL/L (98-107); CREATININE SERUM 0.64 MG/DL (0.60-1.30); GFR ESTIMATED > 60; GLUCOSE 109 MG/DL (70-105); POTASSIUM 3.8 MMOL/L (3.6-5.0); SODIUM 135 MMOL/L (135-145); TOTAL PROTEIN 6.2 GM/DL (6.4-8.2)
[2017-11-01] MEDS ORDERED: INFLUENZA TRIvalent 2017-2018 0.5 ML/45 MCG SYR IM ONE (07:45)
[2017-11-01 08:00] VITALS: BP 158/99
[2017-11-01] MEDS: NICOTINE 21 MG (NICODERM) PATCH TD SCH (08:17)
[2017-11-01] MEDS: HYOSCYAMINE 0.125 MG (LEVSIN) TAB SL PRN ×2 (08:18→14:52)
[2017-11-01] MEDS: THIAMINE INJECTION 100 MG, FOLIC ACID INJECTION 1 MG, MAGNESIUM SULFATE 2 GM, VITAMIN M... IV SCH ×5 (08:19)
[2017-11-01] MEDS ORDERED: NICOTINE PATCH REMOVAL TP SCH (08:59)
[2017-11-01] MEDS ORDERED: PANTOPRAZOLE 40 MG/10 ML (PROTONIX) VIAL IV SCH (09:00)
[2017-11-01] MEDS ORDERED: DICY10CA12 PO ×2 (10:45)
[2017-11-01] MEDS ORDERED: SULF1TAB35 PO ×2 (10:45)
[2017-11-01 12:00] VITALS: BP 153/78
--- NOTE | 2017-11-01 14:04 | Discharge Summary-Hospitalist ---
Diagnosis/Chief Complaint Date of Admission Oct 31, 2017 at 9:50 am Date of Discharge Discharge Date: Nov 01, 2017 Admission Diagnosis Alcohol intoxication Discharge Diagnosis (1) Alcohol intoxication Status: Acute Assessment & Plan: Severe alcohol intoxication Alcohol level 472 on presentation Mentation stable Cont banana bag Did not withdrawal here but will place on [facility] protocol in preparation for potential withdrawal (2) Abdominal pain Status: Acute Assessment & Plan: CT shows unchanged small amoutn pneumoperitoneum consistent with recent surgery Will attempt to avoid narcotics as able due to history of polysubstance abuse Will provide Bentyl, Tylenol, and Ibuprofen for pain (3) Normocytic anemia Status: Chronic Assessment & Plan: Cont multivitamin Likely multifactorial due to menses and malnutrition from alcohol intake trend (4) Polysubstance abuse Assessment & Plan: UDS negative today but positive for amphetamines on 10/27 Denies use since (5) Prophylactic measure Assessment & Plan: Banana bag Lovenox Regular Diet Discharge Summary Discharge Physical Examination Allergies: Coded Allergies: aspirin (Verified Allergy, Unknown, 10/29/17) Vitals & I&Os Vital Signs Date Time Temp Pulse Resp B/P (MAP) Pulse Ox O2 Delivery O2 Flow Rate FiO2 11/01/17 12:00 99.7 110 18 153/78 (103) 99 11/01/17 00:45 Room Air Hospital Course Pt presented to the ER with complaints of abd pain. CT abd/pelvis was done and was relatively unchanged from her previous 2 days ago. She was found to have an alcohol level of 472 and was admitted for observation. Her pain improved with oral medications and she was comfortable with plan to DC home today. She does not have a ride though so we will arrange for transportation home. She was dischared home in stable condition and her prescriptions were sent to the pharmacy. She is to complete her antibiotics as well from her abdominal wound. Labs (last 24 hrs) Laboratory Tests 11/01/17 05:27: White Blood Count 5.4, Red Blood Count 3.49L, Hemoglobin 10.0L, Hematocrit 30L, Mean Corpuscular Volume 86, Mean Corpuscular Hemoglobin 29, Mean Corpuscular Hemoglobin Concent 33, Red Cell Distribution Width 16.5H, Platelet Count 309, Mean Platelet Volume 8.3, Neutrophils (%) (Auto) 68, Lymphocytes (%) (Auto) 14, Monocytes (%) (Auto) 17H, Eosinophils (%) (Auto) 1, Basophils (%) (Auto) 0, Neutrophils # (Auto) 3.6, Lymphocytes # (Auto) 0.8L, Monocytes # (Auto) 0.9, Eosinophils # (Auto) 0.1, Basophils # (Auto) 0.0, Sodium Level 135, Potassium Level 3.8, Chloride Level 103, Carbon Dioxide Level 25, Anion Gap 7, Blood Urea Nitrogen 7, Creatinine 0.64, Estimat Glomerular Filtration Rate > 60, BUN/ Creatinine Ratio 11, Glucose Level 109H, Calcium Level 8.4L, Total Bilirubin 0.3 , Aspartate Amino Transf (AST/SGOT) 16, Alanine Aminotransferase (ALT/SGPT) 9, Alkaline Phosphatase 79, Total Protein 6.2L, Albumin 3.3, Serum Alcohol < 10 Discussion & Recommendations Discharge Planning: <30 minutes discharge planning Discharge Home Medications: Active Scripts Active Bactrim Ds Tablet (Sulfamethoxazole/Trimethoprim) 1 Each Tablet 1 Ea PO BID WITH MEALS Dicyclomine HCl 10 Mg Capsule 10 Mg PO ACHS One Daily (Multivitamin) 1 Each Tablet 1 Each PO DAILY 30 Days Reported Tylenol Extra Strength (Acetaminophen) 500 Mg Tablet 500-1,000 Mg PO Q6H PRN Instructions to patient/family Please see electronic discharge instructions given to patient. Clinical Quality Measures DVT/VTE Risk/Contraindication: Risk Factor Score Per Nursin RFS Level Per Nursing on Admit: 2=Moderate Copy Copies To 1: KATHY VANCE DO Problem Qualifiers (1) Alcohol intoxication: Complication of substance-induced condition: uncomplicated Qualified Codes: F10.920 - Alcohol use, unspecified with intoxication, uncomplicated (2) Abdominal pain: Abdominal location: upper abdomen, unspecified Qualified Codes: R10.10 - Upper abdominal pain, unspecified ANNABEL STEEN MD Nov 01, 2017 2:04 pm
[2017-11-01 16:25] VITALS: BP 175/92
[2017-11-01 20:59] VITALS: BP 153/90
[2017-11-02 00:22] VITALS: BP 128/82
[2017-11-02] MEDS: LORazepam 1 MG (ATIVAN) TAB PO PRN ×2 (03:31→06:30)
[2017-11-02] MEDS: TRIM/SULFAMETH 160/800 (SEPTRA DS) TAB PO SCH (06:04)
[2017-11-02] MEDS: DICYCLOMINE 10 MG (BENTYL) CAP PO SCH (06:04)
[2017-11-03] MEDS ORDERED: MULT-35 PO (09:56)
== END 2017-11-02 06:45 | disposition home or self-care (01) ==
LOC: EDUNIT# 08:51 → ER 08:52 → UNDOADMOB 09:50 → 4TH 09:50 → UNDODISOB 11-02 06:45
PROVIDERS: ADMIT Family Medicine; ATTEND Family Medicine
DX: F10.129 Alcohol abuse with intoxication, unspecified (principal); Y90.8 Blood alcohol level of 240 mg/100 ml or more; R10.13 Epigastric pain; I10 Essential (primary) hypertension; D64.9 Anemia, unspecified; F15.10 Other stimulant abuse, uncomplicated; F12.10 Cannabis abuse, uncomplicated; F17.210 Nicotine dependence, cigarettes, uncomplicated
CPT/HCPCS: 36415; 74022; 74177; 80053; 80306; 80320; 80329; 81000; 82150; 83690; 84703; 85025; 85610; 85730; 93005; 93041; G0378

== ENCOUNTER 2018-03-08 04:52 | Emergency (ER) | payer SELFPAY ==
[~2018-03-08] VITALS: Ht 175.3 cm; Wt 72.6 kg
[~2018-03-08 04:52] MED LIST changes: +DICY10CA12 PO; +MULT-35 PO
[2018-03-08] MEDS ORDERED: LIDOCAINE/EPI 2% 1:100,00 (XYLOCAINE) 20 ML VIAL INJ ONE (05:00)
[2018-03-08 05:12] LABS: BILIRUBIN,URINE NEGATIVE (NEGATIVE); CLARITY,URINE SLIGHTLY CLOUDY; COLOR,URINE YELLOW; GLUCOSE, URINE (UA) NEGATIVE (NEGATIVE); KETONES,URINE NEGATIVE (NEGATIVE); LEUKOCYTE ESTERASE ,URINE NEGATIVE (NEGATIVE); NITRITE,URINE NEGATIVE (NEGATIVE); PH,URINE 7 (5-9); PROTEIN,URINE NEGATIVE (NEGATIVE); UROBILINOGEN,URINE NORMAL (NORMAL)
[2018-03-08 05:21] LABS: BACTERIA,URINE NEGATIVE /HPF; SQUAMOUS EPITHELIAL CELL,UR 25-50 /HPF
--- NOTE | 2018-03-08 05:27 | ED General ---
General Chief Complaint: Laceration Stated Complaint: ETOH Nursing Triage Note: PT BROUGHT IN BY EMS WITH COMPLAINT OF LEFT FOREARM LACERATION. PT STATES SHE CUT HERSELF TO "PROVE A POINT", BUT WAS NOT TRYING TO HARM HERSELF. Nursing Sepsis Screen: No Definite Risk Source of Information: Patient Exam Limitations: Intoxication History of Present Illness Date Seen by Provider: Mar 08, 2018 Time Seen by Provider: 04:54 Initial Comments Here with report of laceration to her left forearm. She states that she is not trying to hurt herself that she was trying to prove a point and cut her arm when somebody wasn't listening to her about what she wanted them to do. Story is somewhat confusing but she is adamant that this was not an effort to kill herself. She does admit to drinking vodka quite a bit. She admits to recent methamphetamine abuse but states that is not her typical and she only uses it when it's around. Laceration to the left forearm is approximately 6 cm. Patient is quite agitated but does calm persistent verbal reassurance. Laceration occurred sometime within the last 6 hours. Timing/Duration: 4-6 Hours Severity: Moderate Associated Systoms: No Chest Pain, No Cough, No Nausea/Vomiting, No Shortness of Air, No Weakness Allergies and Home Medications Allergies Coded Allergies: aspirin (Verified Allergy, Unknown, 10/29/17) Home Medications No Active Prescriptions or Reported Meds Patient Home Medication List Home Medication List Reviewed: Yes Review of Systems Constitutional: see HPI; No chills, No fever EENTM: no symptoms reported Respiratory: no symptoms reported Cardiovascular: no symptoms reported Gastrointestinal: no symptoms reported Genitourinary: no symptoms reported Musculoskeletal: see HPI; No joint pain; muscle pain Skin: No change in color; lesions Psychiatric/Neurological: No Symptoms Reported All Other Systems Reviewed Negative Unless Noted: Yes Past Hwrvanb-Hrjrtd-Cpgzkx Hx Past Med/Social Hx: Reviewed Nursing Past Med/Soc Hx Patient Social History Alcohol Use: Regular Use Alcohol Beverage of Choice: Beer, Vodka Recreational Drug Use: Yes Drug of Choice: h/o MARIJUANA and meth Smoking Status: Current Everyday Smoker Type Used: Cigarettes 2nd Hand Smoke Exposure: Yes Recent Foreign Travel: No Contact w/Someone Who Travel: No Recent Infectious Disease Expo: No Recent Hopitalizations: No Immunizations Up To Date Tetanus Booster (TDap): Less than 5yrs PED Vaccines UTD: Yes Seasonal Allergies Seasonal Allergies: No Past Medical History Surgeries: Yes Abdominal, Section, Orthopedic, Tubal Ligation Respiratory: No Cardiac: Yes Hypertension 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 No Pertinent Family Hx Physical Exam Vital Signs Vital Signs - First Documented 03/08/18 04:52 Temp 98.0 Pulse 88 Resp 21 B/P (MAP) 152/100 (117) Pulse Ox 98 O2 Delivery Room Air Capillary Refill : Less Than 3 Seconds Height, Weight, BMI Height: 5'9.00" Weight: 160lbs. 0.0oz. 72.281385ii; 27.1 BMI Method:Stated General Appearance: WD/WN, Moderate Distress HEENT: PERRL/EOMI, Pharynx Normal Neck: Non Tender, Supple Respiratory: Lungs Clear, Normal Breath Sounds Cardiovascular: No Murmur, Tachycardia Gastrointestinal: Non Tender, Soft Back: Normal Inspection, No CVA Tenderness, No Vertebral Tenderness Extremity: Normal Inspection, Normal Range of Motion Neurologic/Psychiatric: Alert, Oriented x3 Skin: Normal Color, Other (6 cm incision to the left forearm into the subcutaneous tissue.) Progress/Results/Core Measures Suspected Sepsis Recent Fever Within 48 Hours: No Infection Criteria Present: None New/Unexplained Altered Menta: No Sepsis Screen: No Definite Risk SIRS Temperature:98.0 Pulse: 88 Respiratory Rate: 21 Blood Pressure 152 /100 Mean: 117 Results/Orders Lab Results Laboratory Tests Test 03/08/18 05:00 Range/Units Urine Color YELLOW Urine Clarity SLIGHTLY CLOUDY Urine pH 7 5-9 Urine Specific [place] 1.005 L 1.016-1.022 Urine Protein NEGATIVE NEGATIVE Urine Glucose (UA) NEGATIVE NEGATIVE Urine Ketones NEGATIVE NEGATIVE Urine Nitrite NEGATIVE NEGATIVE Urine Bilirubin NEGATIVE NEGATIVE Urine Urobilinogen NORMAL NORMAL MG/DL Urine Leukocyte Esterase NEGATIVE NEGATIVE Urine RBC (Auto) NEGATIVE NEGATIVE Urine RBC NONE /HPF Urine WBC NONE /HPF Urine Squamous Epithelial Cells 25-50 H /HPF Urine Crystals NONE /LPF Urine Bacteria NEGATIVE /HPF Urine Casts NONE /LPF Urine Mucus NEGATIVE /LPF Urine Culture Indicated NO Urine Opiates Screen NEGATIVE NEGATIVE Urine Oxycodone Screen NEGATIVE NEGATIVE Urine Methadone Screen NEGATIVE NEGATIVE Urine Propoxyphene Screen NEGATIVE NEGATIVE Urine Barbiturates Screen NEGATIVE NEGATIVE Ur Tricyclic Antidepressants Screen NEGATIVE NEGATIVE Urine Phencyclidine Screen NEGATIVE NEGATIVE Urine Amphetamines Screen POSITIVE H NEGATIVE Urine Methamphetamines Screen POSITIVE H NEGATIVE Urine Benzodiazepines Screen NEGATIVE NEGATIVE Urine Cocaine Screen NEGATIVE NEGATIVE Urine Cannabinoids Screen NEGATIVE NEGATIVE My Orders Orders - JONO ERICKSON MD Saline Lock/Iv-Start (03/08/18 04:57) Lidocaine/Epi 2% 1:100,000 (Xylocaine/Ep (03/08/18 05:00) Hcg,Qualitative Serum (03/08/18 04:58) Acetaminophen (03/08/18 04:58) Alcohol (03/08/18 04:58) Cbc With Automated Diff (03/08/18 04:58) Comprehensive Metabolic Panel (03/08/18 04:58) Drug Screen Stat (Urine) (03/08/18 04:58) Salicylate (03/08/18 04:58) Ua Culture If Indicated (03/08/18 04:58) Vital Signs/I&O 03/08/18 04:52 Temp 98.0 Pulse 88 Resp 21 B/P (MAP) 152/100 (117) Pulse Ox 98 O2 Delivery Room Air Capillary Refill : Less Than 3 Seconds Blood Pressure Mean: 117 Progress Note : Progress Note Patient quite agitated initially but did eventually calm. She accepts laceration repair. Declined further evaluation and states this is not in an effort to harm herself. Departure Impression Primary Impression: Injury, self-inflicted Additional Impression: Alcohol intoxication Qualified Codes: F10.920 - Alcohol use, unspecified with intoxication, uncomplicated Disposition: 01 HOME, SELF-CARE Condition: Stable Departure-Patient Inst. Decision time for Depature: 06:02 Referrals: NO,LOCAL PHYSICIAN (PCP/Family) Primary Care Physician Patient Instructions: Laceration Repair With Stitches (DC) Add. Discharge Instructions: All discharge instructions reviewed with patient and/or family. Voiced understanding. Take medications as directed. Your prescription filled today and start taking that as prescribed. Sutures out in 10-14 days. Return for worse pain, swelling , redness, red streaks up the arm, foul-smelling drainage or other concerns as needed. Scripts Cephalexin (Cephalexin) 500 Mg Tablet 500 MG PO QID, #20 TAB 0 Refills Prov: JONO ERICKSON MD 03/08/18 JONO ERICKSON MD Mar 08, 2018 05:27
[2018-03-08 05:30] LABS: AMPHETAMINE SCREEN, URINE POSITIVE (NEGATIVE); BARBITURATE SCREEN URINE NEGATIVE (NEGATIVE); BENZODIAZEPINES SCREEN URINE NEGATIVE (NEGATIVE); CANNABINOID SCREEN, URINE NEGATIVE (NEGATIVE); COCAINE SCREEN URINE NEGATIVE (NEGATIVE); METHADONE STAT NEGATIVE (NEGATIVE); METHAMPHETAMINE SCREEN URINE S POSITIVE (NEGATIVE); OPIATE SCREEN URINE NEGATIVE (NEGATIVE); OXYCODONE STAT NEGATIVE (NEGATIVE); PROPOXYPHENE STAT NEGATIVE (NEGATIVE); TRICYCLIC ANTIDEPRESSANTS SCRE NEGATIVE (NEGATIVE)
[2018-03-08] MEDS ORDERED: CEPHALEXIN 250 MG (KEFLEX) CAP PO ONE (06:02)
[2018-03-08] MEDS ORDERED: CEPH500T PO (06:04)
[2018-03-08 06:20] VITALS: BP 152/100
--- OUTSIDE RECORDS SUMMARY | 2018-03-08 13:40 | XMS REPORT | Continuity of Care Document ---
Author Author [facility] Organization [facility] Address [facility] [address] [place] [address] Phone Unavailable Support Name Relationship Address Phone NOA MILLS MD Caregiver [address] [place], [place] JUANITO BEASLEY Next Of Kin [address] [place] [address] Insurance Providers Payer Name Policy Number Subscriber Name Relationship Self Pay Insurance Nica Beasley 18 Self / Same As Patient Advance Directives Directive Response Recorded Date/Time Do you have an Advanced Directive? No 07/24/05 12:31pm Advance Directives No 10/30/08 3:56pm Living Will No 10/30/08 3:56pm Health Care Proxy No 10/15/14 11:12am Power of Scouring Pads Supervisor for Health Care No 10/30/08 3:56pm [...] HRS NEEDED PAIN 15 Qty 10/15/14 Active Social History Social History Problem Response Recorded Date/Time Alcohol Use occasionally 10/15/2014 12:58pm Drug Use none 10/15/2014 12:58pm Hospital Discharge Instructions No hospital discharge instructions. Plan of Care No plan of care. Functional Status Query Response Date Recorded [place] Coma Scale Total 15 October 15, 2014 1:15pm Patient Behavior Cooperative October 15, 2014 1:15pm Allergies, Adverse Reactions, Alerts Allergen Type Severity Reaction Status Last Updated Codeine Allergy Unknown Active 10/15/14 Propoxyphene Allergy Unknown DARVOCET Active 10/15/14 Immunizations Name Given Type Hx Diphtheria, Pertussis, Tetanus Vaccination Unknown Historical Hx Hepatitis B Vaccination Unknown Historical Hx Influenza Vaccination No Historical Hx Pneumococcal Vaccination No Historical Vital Signs Acute Vital Signs Vital Response Date/Time Temperature (Fahrenheit) 98 degrees F (97.6 - 99.5) Temperature Source Temporal Artery Pulse Rate (adult) 103 bpm (60 - 90) Respiratory Rate 24 bpm (12 - 24) Blood Pressure 163/87 mm Hg O2 Sat by Pulse Oximetry 96 % (90 - 100) Oxygen Delivery Method Pain Intensity 8 Pain Location Body Site Modifier Pain Description Pain Duration > 6 Hours Height 5 ft 9 in Weight 217 lb Body Mass Index 32.0 kg/m^2 Results Test Source Date Result Interp. [...] 2009 12:00am Negative /hpf - Urine Specific [place] May 14, 2009 12:00am 1.015 N 1.010-1.025 [...] August 02, 2007 1:32pm LAB: [facility] [address] [address] DIRECTOR: ZACHERY WINTERS V PhD - Urine [...] more views completed 10/15/14 NOA MILLS MD Encounters Encounter Location Date/Time Registered Emergency Room [facility] 10/15/14 11:14am Recent Diagnosis
== END 2018-03-08 06:20 | disposition home or self-care (01) ==
LOC: EDUNIT# 04:52 → ER 04:53
DX: S51.812A Laceration without foreign body of left forearm, initial encounter (principal); F10.129 Alcohol abuse with intoxication, unspecified; F17.210 Nicotine dependence, cigarettes, uncomplicated; I10 Essential (primary) hypertension; Z87.59 Personal history of other complications of pregnancy, childbirth and the puerperium; Z98.51 Tubal ligation status; X83.8XXA Intentional self-harm by other specified means, initial encounter; Z88.6 Allergy status to analgesic agent
CPT/HCPCS: 12032; 80306; 81000

== ENCOUNTER 2018-03-19 07:59 | Inpatient (IN) | payer SELFPAY ==
[~2018-03-19] VITALS: Ht 175.3 cm; Wt 72.6 kg
[~2018-03-19 07:59] MED LIST changes: +CEPH500T PO
--- OUTSIDE RECORDS SUMMARY | 2018-03-19 08:06 | XMS REPORT ---
Author Author ESTELITA MERRITT Organization [facility] Address [address] [place] [address] Care Team Providers Care Bundle Shaker Name Role Phone ESTELITA MERRITT Unavailable PROBLEMS Type Condition ICD9-CM Code [id number] Code Onset Dates Condition Status SNOMED Code Problem Other chronic pain G89.29 Active 16846189 Problem Acute cystitis with hematuria N30.01 Active 67190074 Problem Essential hypertension I10 Active 23210892 Problem Allergic reaction, initial encounter T78.40XA Active 563229233 Problem Injury of right hip region S79.911A Active 26223258373823621 Problem Bronchitis J40 Active 33214485 ALLERGIES No Information ENCOUNTERS Encounter Location Date Diagnosis [facility] [address], [place] [address] December, Contact dermatitis due to plants, except food, unspecified contact dermatitis type L25.5 ; Pain in right shoulder M25.511 ; Pain in left shoulder M25.512 and Other chronic pain G89.29 [facility] [address], [place] [address] Oct, [facility] [address] [place] [id number] [address] 13 Apr, 2017 [facility] [address] [id number] [address] 15 Mar, 2017 Injury of right hip region S79.911A ; Abnormal urine R82.90 ; Acute cystitis with hematuria N30.01 ; Acute maxillary sinusitis, recurrence not specified J01.00 ; Pain due to dental caries K02.9 ; Abscessed tooth K04.7 ; Pneumonia due to infectious organism, unspecified laterality, unspecified part of lung J18.9 and Lower respiratory infection J22 [facility] [address] [id number] [address] Jan, [facility] [address] [place] [id number] [place] [address] Jan, Coccyx pain M53.3 and Dislocation of coccyx, subsequent encounter S33.2XXD [facility] [address] [place] [id number] [place] [address] December, Acute pain of left knee M25.562 and Fall, initial encounter W19.XXXA [facility] [address] [place] [id number] [place] [address] December, Lower respiratory infection J22 [facility] [address] [place] [id number] [place] [address] December, [facility] [address] [place] [id number] [place] [address] Nov, [facility] [id number] [place] [address] Nov, Medication side effect, initial encounter T88.7XXA and Pneumonia due to infectious organism, unspecified laterality, unspecified part of lung J18.9 [facility] [id number] [place] [address] Nov, Allergic reaction, initial encounter T78.40XA ; Essential hypertension I10 and Bronchitis J40 [facility] [address] [place] [id number] [place] [address] Nov, Pneumonia due to infectious organism, unspecified laterality, unspecified part of lung J18.9 ; Pneumonia due to infectious organism, unspecified laterality, unspecified part of lung J18.9 and Abscessed tooth K04.7 [facility] [address] [id number] [id number] Nov, [facility] [id number] [place] [address] Oct, [facility] [address] [id number] [address] Oct, Pain due to dental caries K02.9 [facility] [address] [facility] [id number] [id number] Oct, Acute maxillary sinusitis, recurrence not specified J01.00 [facility] [address] [facility] [id number] [id number] Mar, Dental examination V72.2 [facility] [address] [place] [address] [id number] [id number] Feb, Tooth infection 522.4 IMMUNIZATIONS No Known Immunizations SOCIAL HISTORY Never Assessed REASON FOR VISIT Triage JStrasserRN PLAN OF CARE VITAL SIGNS Height 69 in 2017-11-05 Weight 168.6 lbs 2017-11-05 Temperature 99.5 degrees Fahrenheit 2017-11-05 Heart Rate 80 bpm 2017-11-05 Respiratory Rate 20 2017-11-05 BMI 24.90 kg/m2 2017-11-05 Blood pressure systolic 126 mmHg 2017-11-05 Blood pressure diastolic 90 mmHg 2017-11-05 MEDICATIONS Medication Instructions Dosage Frequency Start Date End Date Duration Status Folic Acid Not-Taking Librium 25 MG Orally Three times a day 1 capsule as needed 8h Not- Taking Thiamine Not-Taking RESULTS No Results PROCEDURES No Known procedures INSTRUCTIONS MEDICATIONS ADMINISTERED No Known Medications MEDICAL (GENERAL) HISTORY Type Description Date Medical History Hypertension Surgical History rotator cuff tear repair Surgical History section Surgical History left knee replacement Hospitalization History Surgery(s)/Childbirth(s) only Hospitalization History Seizure 2016
[2018-03-19] MEDS ORDERED: NS IV 1000 ML 1,000 ML IV ONE (08:20)
[2018-03-19] MEDS ORDERED: LORazepam INJ 2 MG/ML (ATIVAN) VIAL IVP ONE (08:30)
[2018-03-19 08:41] LABS: BASOPHILS % (AUTO) 0 % (0-10); EOSINOPHILS # (AUTO) 0.1 10^3/uL (0.0-0.3); EOSINOPHILS % (AUTO) 1 % (0-10); HEMATOCRIT 36 % (35-52); HEMOGLOBIN 11.5 G/DL (11.5-16.0); LYMPHOCYTES # (AUTO) 1.3 X 10^3 (1.0-4.0); LYMPHOCYTES % (AUTO) 22 % (12-44); MEAN CORPUSCULAR HEMOGLOBIN 26 PG (25-34); MEAN CORPUSCULAR HGB CONC 32 G/DL (32-36); MEAN CORPUSCULAR VOLUME 80 FL (80-99); MEAN PLATELET VOLUME 8.6 FL (7.4-10.4); MONOCYTES # (AUTO) 0.9 X 10^3 (0.0-1.0); MONOCYTES % (AUTO) 16 % (0-12); NEUTROPHILS # (AUTO) 3.5 X 10^3 (1.8-7.8); NEUTROPHILS % (AUTO) 61 % (42-75); PLATELET COUNT 319 10^3/uL (130-400); RED BLOOD COUNT 4.49 10^6/uL (4.35-5.85); RED CELL DISTRIBUTION WIDTH 18.5 % (10.0-14.5); WHITE BLOOD COUNT 5.7 10^3/uL (4.3-11.0)
[2018-03-19 09:02] LABS: ALANINE AMINOTRANSFERASE 17 U/L (0-55); ALKALINE PHOSPHATASE 124 U/L (40-136); BILIRUBIN,TOTAL 0.5 MG/DL (0.1-1.0); BUN/CREATININE RATIO 12; CALCIUM 9.1 MG/DL (8.5-10.1); CARBON DIOXIDE 23 MMOL/L (21-32); CHLORIDE 106 MMOL/L (98-107); CREATININE SERUM 0.68 MG/DL (0.60-1.30); GFR ESTIMATED > 60; GLUCOSE 80 MG/DL (70-105); MAGNESIUM 1.8 MG/DL (1.8-2.4); POTASSIUM 3.8 MMOL/L (3.6-5.0); SODIUM 140 MMOL/L (135-145); TOTAL PROTEIN 7.6 GM/DL (6.4-8.2)
[2018-03-19 10:40] LABS: BILIRUBIN,URINE NEGATIVE (NEGATIVE); CLARITY,URINE SLIGHTLY CLOUDY; COLOR,URINE YELLOW; GLUCOSE, URINE (UA) NEGATIVE (NEGATIVE); KETONES,URINE 3+ (NEGATIVE); LEUKOCYTE ESTERASE ,URINE 1+ (NEGATIVE); NITRITE,URINE POSITIVE (NEGATIVE); PH,URINE 6 (5-9); PROTEIN,URINE 1+ (NEGATIVE); UROBILINOGEN,URINE NORMAL (NORMAL)
[2018-03-19] MEDS ORDERED: THIAMINE INJECTION 100 MG, FOLIC ACID INJECTION 1 MG, MAGNESIUM SULFATE 2 GM, VITAMIN M... IV SCH ×5 (10:43)
[2018-03-19] MEDS ORDERED: 1/2 NS IV SOLUTION 1,000 ML IV PRN ×2 (10:43→12:21)
[2018-03-19] MEDS ORDERED: D5 1/2 NS 1000 ML IV SOLUTION 1,000 ML IV PRN ×2 (10:45→12:30)
[2018-03-19] MEDS ORDERED: ONDANSETRON 4 MG/2 ML (SDV) Z0FRAN IV PRN ×2 (10:45→12:30)
[2018-03-19] MEDS ORDERED: LORazepam INJ 2 MG/ML (ATIVAN) VIAL IV PRN ×2 (10:45→12:30)
[2018-03-19] MEDS ORDERED: LORazepam 1 MG (ATIVAN) TAB PO PRN ×2 (10:45→12:30)
[2018-03-19] MEDS ORDERED: LORazepam INJ 2 MG/ML (ATIVAN) VIAL IM/IV PRN ×2 (10:45→12:30)
[2018-03-19] MEDS ORDERED: ANTACID SUSP 30 ML UDC (MYLANTA) PO PRN ×2 (10:45→12:30)
[2018-03-19] MEDS ORDERED: ONDANSETRON 4 MG (ZOFRAN) ORAL DISSOLVE TAB SL PRN ×2 (10:45→12:30)
[2018-03-19] MEDS ORDERED: SENNA W/DOCUSATE (SENOKOT S) TABLET PO PRN ×2 (10:45→12:30)
--- NOTE | 2018-03-19 10:50 | ED Psychosocial ---
General Chief Complaint: Substance Abuse Stated Complaint: NUMBNESS IN EXTREMITIES Nursing Triage Note: ARRIVED VIA AMB TO ROOM 03. STATES SHE IS GOING THRU ETOH WITHDRAW. STATES SHE DRINKS VODKA ALL THE TIME AND HAS NOT DRANK IT SINCE LAST NIGHT. COMPLAINS OF BEING SHAKEY, NUMB, AND CANT THINK STRAIT. Source: patient Exam Limitations: no limitations History of Present Illness Date Seen by Provider: Mar 19, 2018 Time Seen by Provider: 08:03 Initial Comments This 37-year-old woman presents to the emergency room feeling agitated, chilled , confused, shaky, achy, and numb her extremities. She had previously gone through alcohol treatment and resumed drinking alcohol daily about one month ago. Her last alcoholic beverage was yesterday. She believes she is going through withdrawal from alcohol as well as coming down off of methamphetamines which were last use 2 days ago. Patient also has a laceration on the left upper extremity that was repaired about 11 days ago. Most of the sutures are still in place. Allergies and Home Medications Allergies Coded Allergies: aspirin (Verified Allergy, Unknown, 10/29/17) Home Medications No Active Prescriptions or Reported Meds Patient Home Medication List Home Medication List Reviewed: Yes Constitutional: see HPI EENTM: no symptoms reported Respiratory: no symptoms reported Cardiovascular: no symptoms reported Gastrointestinal: no symptoms reported Genitourinary: no symptoms reported : No Musculoskeletal: see HPI Skin: no symptoms reported Psychiatric/Neurological: See HPI Past Cmilclu-Dsywqo-Oqudkq Hx Past Med/Social Hx: Reviewed and Corrections made Patient Social History Alcohol Use: Regular Use Alcohol Beverage of Choice: Vodka Recreational Drug Use: Yes (USED METH TWO DAYS AGO) Drug of Choice: MARIJUANA, METHAMPHETAMINES Type Used: Cigarettes 2nd Hand Smoke Exposure: Yes Recent Foreign Travel: No Contact w/Someone Who Travel: No Recent Infectious Disease Expo: No Recent Hopitalizations: No Immunizations Up To Date Tetanus Booster (TDap): Unknown PED Vaccines UTD: Yes Seasonal Allergies Seasonal Allergies: No Past Medical History Surgeries: Yes Abdominal, Section, Orthopedic, Tubal Ligation Respiratory: No Cardiac: Yes Hypertension Neurological: No : No Reproductive Disorders: No 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 No Pertinent Family Hx Physical Exam Vital Signs - First Documented 03/19/18 08:07 Temp 98.0 Pulse 114 Resp 16 B/P (MAP) 135/99 (111) Pulse Ox 100 O2 Delivery Room Air Capillary Refill : Less Than 3 Seconds Height, Weight, BMI Height: 5'9.00" Weight: 160lbs. 0.0oz. 72.531936ow; 27.1 BMI Method:Stated General Appearance: WD/WN, mild distress HEENT: PERRL/EOMI, normal ENT inspection Neck: normal inspection Respiratory: lungs clear, normal breath sounds, no respiratory distress, no accessory muscle use Cardiovascular: no edema, no murmur, tachycardia Gastrointestinal: normal bowel sounds, non tender, soft Extremities: normal inspection, no pedal edema Neurologic/Psychiatric: field sales manager II-XII nml as tested, no motor/sensory deficits, alert, oriented x 3, other (agitated, anxious) Behavior/Eye Contact: cooperative, avoids eye contact Skin: normal color, warm/dry, other (healing laceration on the left forearm with erythematous indurated tissue surrounding the wound. Does not appear infected.) Progress/Results/Core Measures Results/Orders Lab Results Laboratory Tests Test 03/19/18 08:30 03/19/18 10:25 Range/Units White Blood Count 5.7 4.3-11.0 10^3/uL Red Blood Count 4.49 4.35-5.85 10^6/uL Hemoglobin 11.5 11.5-16.0 G/DL Hematocrit 36 35-52 % Mean Corpuscular Volume 80 80-99 FL Mean Corpuscular Hemoglobin 26 25-34 PG Mean Corpuscular Hemoglobin Concent 32 32-36 G/DL Red Cell Distribution Width 18.5 H 10.0-14.5 % Platelet Count 319 130-400 10^3/uL Mean Platelet Volume 8.6 7.4-10.4 FL Neutrophils (%) (Auto) 61 42-75 % Lymphocytes (%) (Auto) 22 12-44 % Monocytes (%) (Auto) 16 H 0-12 % Eosinophils (%) (Auto) 1 0-10 % Basophils (%) (Auto) 0 0-10 % Neutrophils # (Auto) 3.5 1.8-7.8 X 10^3 Lymphocytes # (Auto) 1.3 1.0-4.0 X 10^3 Monocytes # (Auto) 0.9 0.0-1.0 X 10^3 Eosinophils # (Auto) 0.1 0.0-0.3 10^3/uL Basophils # (Auto) 0.0 0.0-0.1 10^3/uL Sodium Level 140 135-145 MMOL/L Potassium Level 3.8 3.6-5.0 MMOL/L Chloride Level 106 98-107 MMOL/L Carbon Dioxide Level 23 21-32 MMOL/L Anion Gap 11 5-14 MMOL/L Blood Urea Nitrogen 8 7-18 MG/DL Creatinine 0.68 0.60-1.30 MG/DL Estimat Glomerular Filtration Rate > 60 BUN/Creatinine Ratio 12 Glucose Level 80 70-105 MG/DL Calcium Level 9.1 8.5-10.1 MG/DL Magnesium Level 1.8 1.8-2.4 MG/DL Total Bilirubin 0.5 0.1-1.0 MG/DL Aspartate Amino Transf (AST/SGOT) 34 5-34 U/L Alanine Aminotransferase (ALT/SGPT) 17 0-55 U/L Alkaline Phosphatase 124 40-136 U/L Total Protein 7.6 6.4-8.2 GM/DL Albumin 4.0 3.2-4.5 GM/DL Serum Alcohol < 10 <10 MG/DL Urine Color YELLOW Urine Clarity SLIGHTLY CLOUDY Urine pH 6 5-9 Urine Specific [place] 1.015 L 1.016-1.022 Urine Protein 1+ H NEGATIVE Urine Glucose (UA) NEGATIVE NEGATIVE Urine Ketones 3+ H NEGATIVE Urine Nitrite POSITIVE H NEGATIVE Urine Bilirubin NEGATIVE NEGATIVE Urine Urobilinogen NORMAL NORMAL MG/DL Urine Leukocyte Esterase 1+ H NEGATIVE Urine RBC (Auto) NEGATIVE NEGATIVE Urine RBC NONE /HPF Urine WBC 5-10 H /HPF Urine Squamous Epithelial Cells 5-10 /HPF Urine Crystals NONE /LPF Urine Bacteria LARGE H /HPF Urine Casts NONE /LPF Urine Mucus NEGATIVE /LPF Urine Yeast FEW H /HPF Urine Culture Indicated YES Urine Test NEGATIVE NEGATIVE Urine Opiates Screen NEGATIVE NEGATIVE Urine Oxycodone Screen NEGATIVE NEGATIVE Urine Methadone Screen NEGATIVE NEGATIVE Urine Propoxyphene Screen NEGATIVE NEGATIVE Urine Barbiturates Screen NEGATIVE NEGATIVE Ur Tricyclic Antidepressants Screen NEGATIVE NEGATIVE Urine Phencyclidine Screen NEGATIVE NEGATIVE Urine Amphetamines Screen POSITIVE H NEGATIVE Urine Methamphetamines Screen POSITIVE H NEGATIVE Urine Benzodiazepines Screen NEGATIVE NEGATIVE Urine Cocaine Screen NEGATIVE NEGATIVE Urine Cannabinoids Screen NEGATIVE NEGATIVE Micro Results Microbiology 03/19/18 Urine Culture - Preliminary, Resulted Sent To [facility] My Orders Orders - NATALIA GELLER MD Saline Lock/Iv-Start (03/19/18 08:20) Alcohol (03/19/18 08:20) Cbc With Automated Diff (03/19/18 08:20) Comprehensive Metabolic Panel (03/19/18 08:20) Drug Screen Stat (Urine) (03/19/18 08:20) Magnesium (03/19/18 08:20) Ua Culture If Indicated (03/19/18 08:20) Saline Lock/Iv-Start (03/19/18 08:20) Ns Iv 1000 Ml (Sodium Chloride 0.9%) (03/19/18 08:20) Lorazepam Injection (Ativan Injection) (03/19/18 08:30) Urine Culture (03/19/18 10:25) Medications Given in ED Vital Signs/I&O Blood Pressure Mean: 111 Progress Progress Note : Progress Note Labs were unremarkable. Patient was agitated, mildly tachycardic, and mildly hypertensive which could represent early withdrawal. Patient was treated with Ativan 1 mg IV. IV hydration was provided. I discussed options with the patient. She prefers to be admitted and detoxed as an inpatient with referral to rehabilitation after detox. I discussed with Dr. Elizabeth who is agreeable to this strategy. The alcohol withdrawal protocol will be used along with the bridging orders. UA and urine drug screen were pending at the time of admission. Sutures in the left upper arm were removed by nursing staff. Departure Communication (Admissions) Time/Spoke to Admitting Phy: 10:40 Dr. Elizabeth Impression Primary Impression: Polysubstance abuse Additional Impressions: Alcohol withdrawal Qualified Codes: F10.239 - Alcohol dependence with withdrawal, unspecified Visit for suture removal Disposition: ADMITTED INPATIENT Condition: Improved Admissions Decision to Admit Reason: Admit from ER (General) Decision to Admit/Date: Mar 19, 2018 Time/Decision to Admit Time: 10:40 Departure-Patient Inst. Referrals: NO,LOCAL PHYSICIAN (PCP/Family) Primary Care Physician Patient Instructions: ALCOHOL AND SUBSTANCE ABUSE Scripts No Active Prescriptions or Reported Meds NATALIA GELLER MD Mar 19, 2018 10:50
[2018-03-19 10:54] LABS: AMPHETAMINE SCREEN, URINE POSITIVE (NEGATIVE); BARBITURATE SCREEN URINE NEGATIVE (NEGATIVE); BENZODIAZEPINES SCREEN URINE NEGATIVE (NEGATIVE); CANNABINOID SCREEN, URINE NEGATIVE (NEGATIVE); COCAINE SCREEN URINE NEGATIVE (NEGATIVE); METHADONE STAT NEGATIVE (NEGATIVE); METHAMPHETAMINE SCREEN URINE S POSITIVE (NEGATIVE); OPIATE SCREEN URINE NEGATIVE (NEGATIVE); OXYCODONE STAT NEGATIVE (NEGATIVE); PROPOXYPHENE STAT NEGATIVE (NEGATIVE); TRICYCLIC ANTIDEPRESSANTS SCRE NEGATIVE (NEGATIVE)
[2018-03-19 10:58] LABS: BACTERIA,URINE LARGE /HPF
[2018-03-19 10:59] LABS: YEAST,URINE FEW /HPF
[2018-03-19] MEDS ORDERED: ENOXAPARIN 40 MG/0.4 ML (LOVENOX) SYR SC SCH (11:18)
[2018-03-19 12:01] VITALS: BP 127/78
--- NOTE | 2018-03-19 12:29 | History & Physical-Hospitalist ---
History of Present Illness HPI/Chief Complaint Pt is a 37yoCF known to me from previous admission who presented to the ER for alcohol withdrawal. She states they me that she came to the ER because " I felt like I was going to ." She has a history of alcohol abuse and was in alcohol treatment for 38 days from October to November and then moved to a women's alf until early February. She was sober all of this time but when she moved out of the women's alf and moved in with a friend she relapsed. She began drinking again and iuntil last night was drinking a fifth per day. She has also started using drugs again. Most recently she used meth two days ago and also thinks she may have smoked pot but is not sure because she was high. She would like to seek treatment and is seeking help for her acute withdrawal. Source: patient Exam Limitations: clinical condition Date Seen 03/19/18 Time Seen by Provider: 12:57 Attending Physician Annabel Elizabeth MD PCP No,Local Physician Referring Physician Date of Admission Mar 19, 2018 at 10:47 am Home Medications & Allergies Home Medications Reviewed patient Home Medication Reconciliation performed by pharmacy medication reconciliations tube test technician and/or nursing. Patients Allergies have been reviewed. Allergies Allergies Coded Allergies aspirin (Verified Allergy, Unknown, 10/29/17) Past Pztlzsz-[id number]-Jbmrtb Hx Past Med/Social Hx: Reviewed Nursing Past Med/Soc Hx Patient Social History Alcohol Use: Regular Use Alcohol Beverage of Choice: Vodka Recreational Drug Use: Yes (USED METH TWO DAYS AGO) Drug of Choice: MARIJUANA, AMPHETAMINES Type Used: Cigarettes 2nd Hand Smoke Exposure: Yes Recent Foreign Travel: No Contact w/other who traveled: No Recent Hopitalizations: No Recent Infectious Disease Expo: No Immunizations Up To Date Tetanus Booster (TDap): Unknown Pediatric: Yes Seasonal Allergies Seasonal Allergies: No Past Medical History Surgeries: Abdominal, Section, Orthopedic, Tubal Ligation Cardiac: Hypertension Tubal Ligation Loss of Vision: Denies Hearing Impairment: Denies Psychosocial: Suicide Attempts Alcohol abuse History of Blood Disorders: No Adverse Reaction to Blood [place]: No Family History Reviewed Nursing Family Hx Patient reports no known family medical history. No Pertinent Family Hx Review of Systems Constitutional: diaphoresis, weakness Respiratory: No cough, No dyspnea on exertion, No short of breath Cardiovascular: No chest pain, No edema, No palpitations Gastrointestinal: abdominal pain; No constipation, No diarrhea; nausea Genitourinary: no symptoms reported Musculoskeletal: no symptoms reported Skin: no symptoms reported Psychiatric/Neurological: Tingling (bilateral feet- chronic) Physical Exam Physical Exam Vital Signs Vital Signs - First Documented 03/19/18 08:07 Temp 98.0 Pulse 114 Resp 16 B/P (MAP) 135/99 (111) Pulse Ox 100 O2 Delivery Room Air Capillary Refill : Less Than 3 Seconds Height, Weight, BMI Height: 5'9.00" Weight: 160lbs. 0.0oz. [id number]; 27.1 BMI Method:Stated General Appearance: Mild Distress Neck: Non Tender, Supple Respiratory: Lungs Clear, No Respiratory Distress Cardiovascular: Regular Rate, Rhythm, No Murmur Gastrointestinal: Normal Bowel Sounds, Non Tender, Soft Extremity: Normal Capillary Refill, No Calf Tenderness, No Pedal Edema Neurologic/Psychiatric: Alert, Oriented x3, No Motor/Sensory Deficits, Normal Mood/Affect Results Results/Procedures Labs Laboratory Tests 03/19/18 08:30 Patient resulted labs reviewed. Assessment/Plan Admission Diagnosis Alcohol withdrawal Admission Status: Inpatient Order (span 2 midnights) Reason for Inpatient Admission: Will take more than two midnights to medical treat withdrawal Diagnosis/Problems Diagnosis/Problems (1) Alcohol withdrawal Assessment & Plan: Place on [facility] protocol Banana Bag Last drink at 9pm last night Social Work consulted Qualifiers: Complication of substance-induced condition: with unspecified complication Qualified Codes: F10.239 - Alcohol dependence with withdrawal, unspecified (2) Shoulder pain, right Status: Acute Assessment & Plan: Complains of shoulder pain Unsure of fall history but this should could have possible Will get XR Qualifiers: Chronicity: acute Qualified Codes: M25.511 - Pain in right shoulder (3) Polysubstance abuse Assessment & Plan: UDS + for meth Chronic alcohol use Social work consulted, appreciate assistance ANNABEL ELIZABETH MD Mar 19, 2018 12:29
[2018-03-19] MEDS ORDERED: CATHETER FLUSH 10 ML SYR IV PRN (12:30)
[2018-03-19] MEDS ORDERED: NICOTINE 21 MG (NICODERM) PATCH TD SCH (13:25)
--- NOTE | 2018-03-19 13:36 | Diagnostic Imaging Report ---
INDICATION: Right shoulder pain, post fall. AP, oblique, and trans-scapular views of the right shoulder are obtained. There is no acute fracture. There is no dislocation of the glenohumeral joint. There is widening of the AC joint with inferior depression of the acromion relative to the clavicle, with widening of the coracoclavicular distance. These findings are compatible with a grade 3 AC separation. IMPRESSION: No acute fracture. Findings compatible with grade 3 AC separation on the right side. Dictated by: Dictated on workstation # [id number]
[2018-03-19] MEDS ORDERED: MAGNESIUM OXIDE (MAG-OX)400 MG TAB PO SCH (21:00)
[2018-03-20] MEDS ORDERED: MULTIVIT W/MINERALS TAB (THERAGRAN M) PO SCH (07:00)
[2018-03-20] MEDS ORDERED: THIAMINE 100 MG (VITAMIN B-1) TAB PO SCH ×2 (07:00)
[2018-03-20] MEDS ORDERED: THIAMINE INJECTION 100 MG, FOLIC ACID INJECTION 1 MG, MAGNESIUM SULFATE 2 GM, VITAMIN M... IV SCH ×5 (09:00)
[2018-03-20] MEDS ORDERED: FOLIC ACID 1 MG TAB PO SCH (09:00)
[2018-03-21] MEDS ORDERED: NICOTINE PATCH REMOVAL TP SCH (08:59)
== END 2018-03-19 16:20 | disposition left against medical advice (07) | DRG 894 ==
LOC: EDUNIT# 07:59 → ER 08:02 → UNDOADMOB 10:47 → ICU 10:47 → UNDODISOB 16:20
PROVIDERS: ADMIT Family Medicine; ATTEND Family Medicine
DX: F10.230 Alcohol dependence with withdrawal, uncomplicated (principal); F15.10 Other stimulant abuse, uncomplicated; F12.10 Cannabis abuse, uncomplicated; S51.812D Laceration without foreign body of left forearm, subsequent encounter; Z48.02 Encounter for removal of sutures
CPT/HCPCS: 36415; 73030; 80053; 80306; 80320; 81000; 83735; 84703; 85025; 87077; 87088; 87186; 96361; 96374